=== PATIENT | male | born 1940 | race Caucasian/White ===

== ENCOUNTER 2024-10-05 19:44 | Inpatient (IN) | payer OTHER, SELFPAY ==
[2024-10-05] VITALS (7 sets, daily range): BP systolic 105–118; BP diastolic 55–61; PULSE 93–97; RESP 16; TEMP 36.8–37.1; O2SAT 78–97; BMI 29.3
--- NOTE | ~2024-10-05 | XR_ITS ---
CLINICAL HISTORY: trauma 3 views lumbar spine Comparison: None Findings: Normal alignment. Age indeterminate mild superior endplate compression of L1. No retropulsion. Multilevel degenerative changes. Aortic atherosclerosis. Left hip arthroplasty. IMPRESSION: Age indeterminate L1 superior endplate compression fracture without retropulsion. This document has been electronically signed by: Tutu Hearn MD on 10/05/2024 22:09:00
--- NOTE | ~2024-10-05 | CT_ITS ---
CLINICAL HISTORY: fall CT head without contrast Comparison: None Findings: No intra-axial mass, midline shift, hydrocephalus, or acute hemorrhage. Periventricular and subcortical white matter hypoattenuation likely chronic small-vessel ischemic changes. Intracranial atherosclerosis. Opacified right maxillary sinus. No acute findings in the orbits. No skull fracture. IMPRESSION: 1. No acute intracranial findings. 2. Opacified right maxillary sinus. This document has been electronically signed by: Tutu Hearn MD on 10/05/2024 21:12:03
--- NOTE | ~2024-10-05 | XR_ITS ---
CLINICAL HISTORY: trauma 4 view left elbow Comparison: None Findings: Bones intact. No dislocations. Mild osteoarthritis of the elbow. No joint effusion. IMPRESSION: 1. No acute findings This document has been electronically signed by: Tutu Hearn MD on 10/05/2024 22:08:00
--- NOTE | ~2024-10-05 | CT_ITS ---
CLINICAL HISTORY: fall CT cervical spine without contrast Comparison: None Findings: Normal vertebral body alignment. Multilevel degenerative changes. No acute fractures or dislocations. Visualized intracranial contents are unremarkable. No cervical fluid collections or masses. Bilateral carotid atherosclerosis. Lung apices are clear. IMPRESSION: 1. No acute osseous injury. This document has been electronically signed by: Tutu Hearn MD on 10/05/2024 21:03:47
--- NOTE | ~2024-10-05 | XR_ITS ---
CLINICAL HISTORY: trauma 1 view chest x-ray Comparison: None Findings: The lungs are clear. No pleural effusion or pneumothorax. Heart size is normal. Aortic atherosclerosis. Left subclavian pacemaker with electrodes in the right atrium and right ventricle. No acute fracture. IMPRESSION: 1. No acute findings. This document has been electronically signed by: Tutu Hearn MD on 10/05/2024 22:02:55
--- NOTE | ~2024-10-05 | XR_ITS ---
CLINICAL HISTORY: ?pulm edema 1 view chest x-ray Comparison: CR - XR CHEST 1V - 10/05/24 21:30 EDT Findings: Small left pleural effusion. Few patchy opacities in the right base may be atypical edema or infection. Left subclavian pacemaker with electrodes in the right atrium and right ventricle. No acute fracture. IMPRESSION: 1. Small left pleural effusion. 2. Right basilar opacities, may represent atypical edema or infection. This document has been electronically signed by: Tutu Hearn MD on 10/06/2024 20:54:11
--- NOTE | ~2024-10-05 | XR_ITS ---
CLINICAL HISTORY: trauma 3 views thoracic spine Comparison: None Findings: Normal vertebral body alignment. Age indeterminate mild superior endplate compression of L1. No retropulsion. Diffuse idiopathic skeletal hyperostosis of the thoracic spine. IMPRESSION: Age indeterminate mild superior endplate compression of L1. No retropulsion. This document has been electronically signed by: Tutu Hearn MD on 10/05/2024 22:09:41
--- NOTE | 2024-10-05 20:24 | ECG_ITS ---
Test Reason : FALL Blood Pressure : */* mmHG Vent. 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
--- OUTSIDE RECORDS SUMMARY | 2024-10-05 20:47 | XMS_ITS | Encounter Summary ---
Author Organization [facility] Address [address] [place] [address] Care Team Providers Care Mint Machine Operator Name Role Phone George Rivera MD Unavailable Roge Britt MD Unavailable [phone] Trudy Quevedo MD Unavailable Trudy Quevedo MD Primary Care Provider Fatmata Fernandes HEAD NECK SURGEON Unavailable [phone] Trudy Quevedo MD Unavailable Sepideh May RN Unavailable Ella Nobles PA-C Unavailable Ella Nobles PA-C Unavailable Encounter Details Date Type Department Care Team (Late st Contact Info) Description 10/29/2021 Scanned Document [facility] ORTHO SURGERY SCAN Orthopedic Surgery, Scan Social History Tobacco Use Types Packs/Day Years Used Date Smoking Tobacco: Former Cigarettes 1 30 0 06/1990 - 06/2020 Cigars Smokeless Tobacco: Never Comments:last cigar 5-6 week s ago, last cigarettes 30 yrs ago Alcohol Use Standard Drinks/Week Comments Yes 0 (1 standard drink = 0.6 oz pur e alcohol) Very rarely PHQ-2 Answer Date Recorded PHQ-2 Total Score 0 08/19/2021 Sex and Gender Information Value Date Recorded Sex Assigned at Male 09/01/2022 3:38 PM EDT Legal Sex Male 1:21 PM EDT Gender Identity Male 07/20/2021 2:13 PM EST Sexual Orientation Heterosexual (straight) 12/06 8:41 AM EDT COVID-19 Exposure Response Date Recorded In the last 10 days, have yo u been in contact with someone who was confirmed or suspected to have Coronavirus/COVID-19? No / Unsure 10/27/2021 9:53 AM EDT documented as of this encounter Plan of Treatment Upcoming Encounters Date Type Department Care Team ([facility] st Contact Info) Description 02/24/2025 11:45 AM EDT Office Visit [address] [address] Trudy Quevedo MD [address] [place] [address] documented as of this encounter Visit Diagnoses Not on filedocumented in this encounter Additional Health Concerns Infection Onset Date Last Indicated Resolved Time R/O COVID-19 (PUI) Comment:Bulk resolution for outdated COVID infections - Infection Prevention 11/30/2021 12/16/2021 03/23/2023 1:53 PM E DT documented as of this encounter Care Teams Mint Machine Operator Relationship Specialty Start Date End Date George Rivera MD 85 [facility] [address] [phone] PCP - Cardiology Cardiovascular Disease 08/10/20 Trudy Quevedo MD [address] [address] PCP - General Internal Medicine 11/11/20 Trudy Quevedo MD [address] [place], [place] [id number] PCP - Aetna Medicare Attributed 06/19/21 Roge Britt MD [address] [place] [address] Surgery, Orthopedic 08/18/20 Trudy Quevedo MD [address] [place] [address] Internal Medicine 08/18/20 Fatmata Fernandes APRN [address] [place] [address] ICP Community Nutrition Manager 05/03/21 03/13/23 Sepideh May, JAZMYNE [address] [address] ICP Community Nutrition Manager 03/22/23 Ella Nobles PA-C [address] [place] [address] Cardiovascular Disease 06/19/23 12/19/23 Ella Nobles PA-C [address] [place] [address] Physician Value Analyst Cardiovascular Disease 06/19/23 documented as of this encounter
--- OUTSIDE RECORDS SUMMARY | 2024-10-05 20:47 | XMS_ITS | Encounter Summary ---
Author Organization [facility] Address [address] [place] [address] Care Team Providers Care Genomics Scientist Name Role Phone George Rivera MD Unavailable Roge Britt MD Unavailable [phone] Trudy Quevedo MD Unavailable [phone] Trudy Quevedo MD Primary Care Provider Fatmata Fernandes MAILING CLERK Unavailable [phone] Trudy Quevedo MD Unavailable Sepideh May RN Unavailable Ella Nobles PA-C Unavailable Ella Nobles PA-C Unavailable [phone] Encounter Details Date Type Department Care Team (Late st Contact Info) Description 11/30/[address] [facility] Heart & Vascular [place] - Electrophysiology [address] [place] [phone] Dylan Warner MD [address] [place] [address] Social History Tobacco Use Types Packs/Day Years [...] suspected to have Coronavirus/COVID-19? No / Unsure 11/24/2021 9:53 AM EDT documented as of this encounter Plan of Treatment Upcoming Encounters Date Type Department Care Team (Late st Contact Info) Description 02/24/2025 11:45 AM EDT Office Visit [address] [address] Trudy Quevedo MD [address] [place] [address] documented as of this encounter Visit Diagnoses Not on filedocumented in this encounter Additional Health Concerns Infection Onset Date Last Indicated Resolved Time R/O COVID-19 (PUI) Comment:Bulk resolution for outdated COVID infections - Infection Prevention 11/30/2021 12/16/2021 03/23/2023 1:53 PM E DT documented as of this encounter Care Teams Genomics Scientist Relationship Specialty Start Date End Date George Rivera MD 85 [facility] [address] [phone] PCP - Cardiology Cardiovascular Disease 08/10/20 Trudy Quevedo MD [address] [address] PCP - General Internal Medicine 11/11/20 Trudy Quevedo MD [address] [place] [address] PCP - Aetna Medicare Attributed 06/19/21 Roge Britt MD [address] [place] [address] Surgery, Orthopedic 08/18/20 Trudy Quevedo MD [address] [place] [address] Internal Medicine 08/18/20 Fatmata Fernandes APRN [address] [place] [address] ICP Community Pattern Checker 05/03/21 03/13/23 Sepideh May RN [address] [address] ICP Community Pattern Checker 03/22/23 Ella Nobles PA-C [address] [place] [address] Cardiovascular Disease 06/19/23 12/19/23 Ella Nobles PA-C [address] [place] [address] Physician Coremaker Pipe Cardiovascular Disease 06/19/23 documented as of this encounter
--- OUTSIDE RECORDS SUMMARY | 2024-10-05 20:48 | XMS_ITS | Encounter Summary ---
Author Organization [facility] Address [address] [place] [address] Care Team Providers Care Leather Lacer Name Role Phone George Rivera MD Unavailable [phone] Roge Britt MD Unavailable [phone] Trudy Quevedo MD Unavailable [phone] Trudy Quevedo MD Primary Care Provider Swathi Navarro DO Unavailable [phone] Fatmata Fernandes CONVEYOR LINE BAKERY WORKER Unavailable [phone] Trudy Quevedo MD Unavailable Sepideh May RN Unavailable Ella Nobles PA-C Unavailable Ella Nobles PA-C Unavailable Encounter Details Date Type Department Care Team (Late st Contact Info) Description 01/14/2021 Scanned Document [facility] PRIMARY CARE SCAN Primary Care, Scan Social History Tobacco Use Types Packs/Day Years Used Date Smoking Tobacco: Former Cigarettes 1 30 0 06/1990 - 06/2020 Cigars Smokeless Tobacco: Current Comments:last cigar 5-6 week s ago, last cigarettes 30 yrs ago Alcohol Use Standard Drinks/Week Comments Yes 0 (1 standard drink = 0.6 oz pur e alcohol) Very rarely Sex and Gender Information Value Date Recorded Sex Assigned at Male 09/01/2022 3:38 PM EDT Legal Sex Male 1:21 PM EDT Gender Identity Male 07/20/2021 2:13 PM EST Sexual Orientation Heterosexual (straight) 12/06 8:41 AM EDT COVID-19 Exposure Response Date Recorded In the last month, have you been in contact with someone who was confirmed or suspected to have Coronavirus / COVID-19? No / Unsure 01/13/2021 12:51 PM EDT documented as of this encounter Plan of Treatment Upcoming Encounters Date Type Department Care Team (Late st Contact Info) Description 02/24/2025 11:45 AM EDT Office Visit [address] [address] Trudy Quevedo MD [address] [place] [address] documented as of this encounter Visit Diagnoses Not on filedocumented in this encounter Additional Health Concerns Infection Onset Date Last Indicated Resolved Time R/O COVID-19 (PUI) Comment:Bulk resolution for outdated COVID infections - Infection Prevention 11/30/2021 12/16/2021 03/23/2023 1:53 PM E DT documented as of this encounter Care Teams Leather Lacer Relationship Specialty Start Date End Date George Rivera MD 85 [facility] 719 [place] [address] PCP - Cardiology Cardiovascular Disease 08/10/20 Trudy Quevedo MD [address] [address] PCP - General Internal Medicine 11/11/20 Swathi Navarro DO [address] [place] [address] PCP - Aetna Medicare Attributed 10/17/20 02/16/21 Trudy Quevedo MD [address] [place] [address] PCP - Aetna Medicare Attributed 06/19/21 Roge Britt MD [address] [place] [address] Surgery, Orthopedic 08/18/20 Trudy Quevedo MD [address] [place] [address] Internal Medicine 08/18/20 Fatmata Fernandes APRN [address] [place] [address] ICP Community Keno Dealer 05/03/21 03/13/23 Sepideh May RN [address] [place] [address] [address] ICP Community Keno Dealer 03/22/23 Ella Nobles PA-C [address] [place] [address] Cardiovascular Disease 06/19/23 12/19/23 Ella Nobles PA-C [address] [place] [address] Physician Package Line Relief Operator Cardiovascular Disease 06/19/23 documented as of this encounter
--- OUTSIDE RECORDS SUMMARY | 2024-10-05 20:48 | XMS_ITS | Encounter Summary ---
Author Organization [facility] Address [address] [place] [address] Care Team Providers Care Biomedical Service Engineer Name Role Phone George Rivera MD Unavailable [phone] Roge rBitt MD Unavailable [phone] Trudy Quevedo MD Unavailable Trudy Quevedo MD Primary Care Provider Fatmata Fernandes MAIL TELLER Unavailable [phone] Trudy Quevedo MD Unavailable [phone] Sepideh May RN Unavailable Ella Nobles PA-C Unavailable Ella Nobles PA-C Unavailable [phone] Encounter Details Date Type Department Care Team (Late st Contact Info) Description 12/21/2021 Telephone [facility] Heart & Vascular [place] - Electrophysiology [address] [place] [phone] Dylan Warner MD 85 [place] [address] Social History Tobacco Use Types Packs/Day Years [...] suspected to have Coronavirus/COVID-19? No / Unsure 12/23/2021 4:33 PM EDT documented as of this encounter Miscellaneous Notes * Telephone Encounter - Dimas Kent RN - 12/21/2021 3:21 PM EDT Elsa called him, she will call him back now. documented in this encounter Plan of Treatment Upcoming Encounters Date Type Department Care Team (Late st Contact Info) Description 02/24/2025 11:45 AM EDT Office Visit [address] [place] [address] Trudy Quevedo MD 100 [facility] [address] [place] [address] documented as of this encounter Visit Diagnoses Not on filedocumented in this encounter Additional Health Concerns Infection Onset Date Last Indicated Resolved Time R/O COVID-19 (PUI) Comment:Bulk resolution for outdated COVID infections - Infection Prevention 11/30/2021 12/16/2021 03/23/2023 1:53 PM E DT documented as of this encounter Care Teams Biomedical Service Engineer Relationship Specialty Start Date End Date George Rivera MD [address] [place] [address] 7[address] [place] [address] PCP - Cardiology Cardiovascular Disease 08/10/20 Trudy Quevedo MD [address] [place] [address] PCP - General Internal Medicine 11/11/20 Trudy Quevedo MD [address] [address] PCP - Aetna Medicare Attributed 06/19/21 Roge Britt MD [address] [place] [address] Surgery, Orthopedic 08/18/20 Trudy Quevedo MD [address] [place] [address] Internal Medicine 08/18/20 Fatmata Fernandes, MAIL TELLER [address] [place] [address] ICP Community Hay Rake Operator 05/03/21 03/13/23 Sepideh May, RN [address] [address] ICP Community Hay Rake Operator 03/22/23 Ella Nobles PA-C [address] [place] [address] Cardiovascular Disease 06/19/23 12/19/23 Ella Nobles PA-C 1 [place] [address] Physician Fortune Teller Cardiovascular Disease 06/19/23 documented as of this encounter
--- OUTSIDE RECORDS SUMMARY | 2024-10-05 20:48 | XMS_ITS | Encounter Summary ---
Author Organization [facility] Address [address] [place] [address] Care Team Providers Care Payable Processor Name Role Phone George Rivera MD Unavailable Roge Britt MD Unavailable [phone] Trudy Quevedo MD Unavailable [phone] Trudy Quevedo MD Primary Care Provider [phone] Swathi Navarro DO Unavailable [phone] Fatmata Fernandes ACTING TEACHER Unavailable [phone] Trudy Quevedo MD Unavailable Sepideh May RN Unavailable Ella Nobles PA-C Unavailable Ella Nobles PA-C Unavailable Encounter Details Date Type Department Care Team (Late st Contact Info) Description 01/13/2021 Scanned Document [facility] PRIMARY CARE SCAN Primary Care, Scan [...] Description 02/24/2025 11:45 AM EDT Office Visit [address] [address] Trudy Quevedo MD [address] [place] [address] documented as of this encounter Visit Diagnoses Not on filedocumented in this encounter Additional Health Concerns Infection Onset Date Last Indicated Resolved Time R/O COVID-19 (PUI) Comment:Bulk resolution for outdated COVID infections - Infection Prevention 11/30/2021 12/16/2021 03/23/2023 1:53 PM E DT documented as of this encounter Care Teams Payable Processor Relationship Specialty Start Date End Date George Rivera MD 85 [facility] 719 [place] [address] PCP - Cardiology Cardiovascular Disease 08/10/20 Trudy Quevedo MD [address] [address] PCP - General Internal Medicine 11/11/20 Swathi Navarro DO [address] [place] [address] PCP - Aetna Medicare Attributed 10/17/20 02/16/21 Trudy Quevedo MD [address] [place] [address] PCP - Aetna Medicare Attributed 06/19/21 Roge Britt MD [address] [place] [address] Surgery, Orthopedic 08/18/20 Trudy Quevedo MD [address] [place] [address] Internal Medicine 08/18/20 Fatmata Fernandes APRN [address] [place] [address] ICP Community Assistant Production Editor 05/03/21 03/13/23 Sepideh May RN [address] [address] ICP Community Assistant Production Editor 03/22/23 Ella Nobles PA-C [address] [place] [address] Cardiovascular Disease 06/19/23 12/19/23 Ella Nobles PA-C [address] [place] [address] Physician Fiscal Clerk Cardiovascular Disease 06/19/23 documented as of this encounter
--- OUTSIDE RECORDS SUMMARY | 2024-10-05 20:48 | XMS_ITS | Encounter Summary ---
Author Organization [facility] Address [address] [place] [address] Care Team Providers Care Cutting Department Supervisor Name Role Phone George Rivera MD Unavailable [phone] Roge Britt MD Unavailable [phone] Trudy Quevedo MD Unavailable [phone] Trudy Quevedo MD Primary Care Provider [phone] Trudy Quevedo MD Unavailable [phone] Sepideh May RN Unavailable Ella Nobles PA-C Unavailable Ella Nobles PA-C Unavailable Encounter Details Date Type Department Care Team (Late st Contact Info) Description 09/12/2023 Scanned Document [facility] PRIMARY CARE SCAN Primary Care, Scan Social History Tobacco Use Types Packs/Day Years Used Date Smoking Tobacco: Former Cigarettes 1 50 0 06/1970 - 06/2020 Cigars Smokeless Tobacco: Never Comments:last cigar 5-6 week s ago, last cigarettes 30 yrs ago Alcohol Use Standard Drinks/Week Comments Not Currently 0 (1 standard drink = 0.6 oz pur e alcohol) occ. AUDIT-C Answer Date Recorded Q1: How often do you have a drink containing alcohol? Never 09/07/2023 Q2: How many drinks containi ng alcohol do you have on a typical day when you are drinking? Patient does not drink Q3: How often do you have si x or more drinks on one occasion? Never 09/07/2023 PHQ-2 Answer Date Recorded PHQ-2 Total Score 0 09/07/2023 Sex and Gender Information Value Date Recorded Sex Assigned at Male 09/01/2022 3:38 PM EDT Legal Sex Male 1:21 PM EDT Gender Identity Male 07/20/2021 2:13 PM EST Sexual Orientation Heterosexual (straight) 12/06 8:41 AM EDT documented as of this encounter Plan of Treatment Upcoming Encounters Date Type Department Care Team (Late st Contact Info) Description 02/24/2025 11:45 AM EDT Office Visit [address] [address] Trudy Quevedo MD [address] [place] [address] documented as of this encounter Visit Diagnoses Not on filedocumented in this encounter Care Teams Cutting Department Supervisor Relationship Specialty Start Date End Date George Rivera MD [address] [place], [place] [phone] PCP - Cardiology Cardiovascular Disease 08/10/20 Trudy Quevedo MD [address] [place], [place] [phone] PCP - General Internal Medicine 11/11/20 Trudy Quevedo MD [address] [place] [address] PCP - Aetna Medicare Attributed 06/19/21 Roge Britt MD [address] [place] [address] Surgery, Orthopedic 08/18/20 Trudy Quevedo MD [address] [place] [address] Internal Medicine 08/18/20 Sepideh May, RN 1290 [facility] [address] [address] [facility] Community Therapist Speech 03/22/23 Ella Nobles PA-C [address] [place] [address] Cardiovascular Disease 06/19/23 12/19/23 Ella Nobles PA-C [address] [place] [address] Physician Cup Trimming Machine Operator Cardiovascular Disease 06/19/23 documented as of this encounter
--- OUTSIDE RECORDS SUMMARY | 2024-10-05 20:48 | XMS_ITS | Encounter Summary ---
Author Organization [facility] Address [address] [place] [address] Care Team Providers Care College Tutor Name Role Phone Bridgett Tavares Young ELEVATOR SERVICE MECHANIC Primary Care Provi yana George Rivera MD Unavailable Roge Britt MD Unavailable [phone] Trudy Quevedo MD Unavailable [phone] Trudy Quevedo MD Primary Care Provider Swathi Navarro DO Unavailable [phone] Fatmata Fernandes APRN Unavailable [phone] Trudy Quevedo MD Unavailable Sepideh May RN Unavailable Ella Nobles PA-C Unavailable Ella Nobles PA-C Unavailable Reason for Visit * Reason Comments Medication Refill Encounter Details Date Type Department Care Team (Late st Contact Info) Description 09/18/2020 Refill [facility] Heart & Vascular [place] - Electrophysiology [address] [place] [address] [address] [place] [address] Sonya Leal APRN [address] [place] [address] Medication Refill Social History Tobacco Use Types Packs/Day Years [...] have Coronavirus / COVID-19? No / Unsure 09/18/2020 10:55 AM EDT documented as of this encounter Plan of Treatment Upcoming Encounters Date Type Department Care Team (Late st Contact Info) Description 02/24/2025 11:45 AM EDT Office Visit [address] [phone] Trudy Quevedo MD 100 [facility] 101 [place] [address] documented as of this encounter Visit Diagnoses Diagnosis Paroxysmal atrial fibrillation (HCC) Atrial fibrillation documented in this encounter Additional Health Concerns Infection Onset Date Last Indicated Resolved Time R/O COVID-19 (PUI) Comment:Bulk resolution for outdated COVID infections - Infection Prevention 11/30/2021 12/16/2021 03/23/2023 1:53 PM E DT documented as of this encounter Care Teams College Tutor Relationship Specialty Start Date End Date Tavares Urias, ELEVATOR SERVICE MECHANIC [address] [place] [address] PCP - General 12/21/18 11/10/20 George Rivera MD 85 [facility] 719 [place] [address] PCP - Cardiology Cardiovascular Disease 08/10/20 Trudy Quevedo MD [address] [place] [address] PCP - General Internal Medicine 11/11/20 Swathi Navarro DO [address] [place] [address] PCP - Aetna Medicare Attributed 10/17/20 02/16/21 Trudy Quevedo MD [address] [place] [address] PCP - Aetna Medicare Attributed 06/19/21 Roge Britt MD [address] [place] [address] Surgery, Orthopedic 08/18/20 Trudy Quevedo MD [address] [place] [address] Internal Medicine 08/18/20 Fatmata Fernandes APRN [address] [place] [address] [facility] Community Waiter/Waitress Second Class 05/03/21 03/13/23 Sepideh May, RN [address] [address] [facility] Community Waiter/Waitress Second Class 03/22/23 Ella Nobles PA-C [address] [place] [address] Cardiovascular Disease 06/19/23 12/19/23 Ella Nobles PA-C [address] [place] [address] Physician Capital Project Engineer Cardiovascular Disease 06/19/23 documented as of this encounter
--- OUTSIDE RECORDS SUMMARY | 2024-10-05 20:48 | XMS_ITS | Encounter Summary ---
Author Organization [facility] Address [address] [place] [address] Care Team Providers Care Adjunct Instructor Chemistry Name Role Phone George Rivera MD Unavailable [phone] Roge Britt MD Unavailable [phone] Trudy Quevedo MD Unavailable Trudy Quevedo MD Primary Care Provider Swathi Navarro DO Unavailable [phone] Fatmata Fernandes STATISTICAL MACHINE MECHANIC Unavailable [phone] Trudy Quevedo MD Unavailable Sepideh May RN Unavailable Ella Nobles PA-C Unavailable Ella Nobles PA-C Unavailable Encounter Details Date Type Department Care Team (Late st Contact Info) Description 01/13/2021 Scanned Document [facility] PRIMARY CARE SCAN Primary Care, Scan Social [...] Description 02/24/2025 11:45 AM EDT Office Visit [address] [address] Trudy Quevedo MD [address] [place] [address] documented as of this encounter Visit Diagnoses Not on filedocumented in this encounter Additional Health Concerns Infection Onset Date Last Indicated Resolved Time R/O COVID-19 (PUI) Comment:Bulk resolution for outdated COVID infections - Infection Prevention 11/30/2021 12/16/2021 03/23/2023 1:53 PM E DT documented as of this encounter Care Teams Adjunct Instructor Chemistry Relationship Specialty Start Date End Date George Rivera MD 85 [facility] 719 [place] [address] PCP - Cardiology Cardiovascular Disease 08/10/20 Trudy Quevedo MD [address] [address] PCP - General Internal Medicine 11/11/20 Swathi Navarro DO [address] [place] [address] PCP - Aetna Medicare Attributed 10/17/20 02/16/21 Trudy Quevedo MD [address] [place] [address] PCP - Aetna Medicare Attributed 06/19/21 Roge Britt MD [address] [place] [address] Surgery, Orthopedic 08/18/20 Trudy Quevedo MD [address] [place] [address] Internal Medicine 08/18/20 Fatmata Fernandes APRN [address] [place] [address] ICP Community Automobile Inspector 05/03/21 03/13/23 Sepideh May RN [address] [address] ICP Community Automobile Inspector 03/22/23 Ella Nobles PA-C [address] [place] [address] Cardiovascular Disease 06/19/23 12/19/23 Ella Nobles PA-C [address] [place] [address] Physician Cork Grinder Cardiovascular Disease 06/19/23 documented as of this encounter
--- OUTSIDE RECORDS SUMMARY | 2024-10-05 20:48 | XMS_ITS | Encounter Summary ---
Author Organization [facility] Address [address] [place] [address] Care Team Providers Care Director Translational Name Role Phone Bridgett Tavares Young FLIGHT TEST DATA ACQUISITION TECHNICIAN Primary Care Provi yana George Rivera MD Unavailable Roge Britt MD Unavailable [phone] Trudy Quevedo MD Unavailable [phone] Trudy Quevedo MD Primary Care Provider Swathi Navarro DO Unavailable [phone] Fatmata Fernandes APRN Unavailable [phone] Trudy Quevedo MD Unavailable [phone] Sepideh May RN Unavailable Ella Nobles PA-C Unavailable Ella Nobles PA-C Unavailable Reason for Visit * Reason Comments Medication Refill Encounter Details Date Type Department Care Team (Late st Contact Info) Description 09/09/2020 Refill [facility] Heart & Vascular [place] - Electrophysiology [address] [place] [address] [address] [place] [address] Sonya Leal APRN [address] [place] [address] Medication Refill Social History Tobacco Use Types [...] have Coronavirus / COVID-19? No / Unsure 09/08/2020 8:36 AM EDT documented as of this encounter Plan of Treatment Upcoming Encounters Date Type Department Care Team (Late st Contact Info) Description 02/24/2025 11:45 AM EDT Office Visit [address] [phone] Trudy Quevedo MD 100 [facility] 101 [place] [address] documented as of this encounter Visit Diagnoses Not on filedocumented in this encounter Additional Health Concerns Infection Onset Date Last Indicated Resolved Time R/O COVID-19 (PUI) Comment:Bulk resolution for outdated COVID infections - Infection Prevention 11/30/2021 12/16/2021 03/23/2023 1:53 PM E DT documented as of this encounter Care Teams Director Translational Relationship Specialty Start Date End Date Tavares Urias, FLIGHT TEST DATA ACQUISITION TECHNICIAN [address] [place] [address] PCP - General 12/21/18 11/10/20 George Rivera MD 85 [facility] [address] [place] [phone] PCP - Cardiology Cardiovascular Disease 08/10/20 Trudy Quevedo MD [address] [place] [address] PCP - General Internal Medicine 11/11/20 Swathi Navarro DO 74 [place] [address] PCP - Aetna Medicare Attributed 10/17/20 02/16/21 Trudy Quevedo MD [address] [place] [id number] PCP - Aetna Medicare Attributed 06/19/21 Roge Britt MD [address] [place] [address] Surgery, Orthopedic 08/18/20 Trudy Quevedo MD [address] [place] [address] [address] [place] [phone] Internal Medicine 08/18/20 Fatmata Fernandes, FLIGHT TEST DATA ACQUISITION TECHNICIAN [address] [place] [address] [facility] Community Payroll Benefits Administrator 05/03/21 03/13/23 Sepideh May, RN [address] [address] [facility] Community Payroll Benefits Administrator 03/22/23 Ella Nobles PA-C [address] [place] [address] Cardiovascular Disease 06/19/23 12/19/23 Ella Nobles PA-C [address] [place] [address] Physician Grants Specialist Cardiovascular Disease 06/19/23 documented as of this encounter
--- OUTSIDE RECORDS SUMMARY | 2024-10-05 20:48 | XMS_ITS | Encounter Summary ---
Author Organization [facility] Address [address] [place] [address] Care Team Providers Care Tdp Displays Analyst Name Role Phone Bridgett Krysta Family WING COVERER Primary Care Provi yana George Rivera MD Unavailable Roge Britt MD Unavailable [phone] Trudy Quevedo MD Unavailable Swathi Navarro DO Unavailable [phone] Trudy Quevedo MD Primary Care Provider Swathi Navarro DO Unavailable [phone] Fatmata Fernandes WING COVERER Unavailable [phone] Trudy Quevedo MD Unavailable [phone] Sepideh May RN Unavailable Ella Nobles PA-C Unavailable Ella Nobles PA-C Unavailable Encounter Details Date Type Department Care Team (Late st Contact Info) Description 04/22/2020 Telephone [facility] Heart & Vascular [place] - Electrophysiology [address] [place] [address] Dylan Warner MD 85 [place] [address] Social History Tobacco Use Types Packs/Day Years Used Date Smoking Tobacco: Some Days Cigars Smokeless Tobacco: Current Alcohol Use Standard Drinks/Week Comments Yes 0 [...] have Coronavirus / COVID-19? No / Unsure 04/22/2020 10:35 AM EST documented as of this encounter Plan of Treatment Upcoming Encounters Date Type Department Care Team (Late st Contact Info) Description 02/24/2025 11:45 AM EDT Office Visit [address] [phone] Trudy Quevedo MD [address] [address] documented as of this encounter Visit Diagnoses Not on filedocumented in this encounter Additional Health Concerns Infection Onset Date Last Indicated Resolved Time R/O COVID-19 (PUI) Comment:Bulk resolution for outdated COVID infections - Infection Prevention 11/30/2021 12/16/2021 03/23/2023 1:53 PM E DT documented as of this encounter Care Teams Tdp Displays Analyst Relationship Specialty Start Date End Date Bridgett, Krysta Young, ERICK [address] [place] [address] PCP - General 12/21/18 11/10/20 George Rivera MD [address] [place] [address] 719 [place] [address] PCP - Cardiology Cardiovascular Disease 08/10/20 Swathi Navarro DO [address] [place] [address] PCP - Aetna Medicare Attributed 06/19/20 07/19/20 Trudy Quevedo MD [address] [place], [place] [phone] PCP - General Internal Medicine 11/11/20 Swathi Navarro DO [address] [place] [address] PCP - Aetna Medicare Attributed 10/17/20 02/16/21 Trudy Quevedo MD [address] [place] [address] [address] PCP - Aetna Medicare Attributed 06/19/21 Roge Britt MD [address] [place] [address] Surgery, Orthopedic 08/18/20 Trudy Quevedo MD [address] [place] [address] Internal Medicine 08/18/20 Fatmata Fernandes APRN [address] [place] [address] [facility] Community Dbas 05/03/21 03/13/23 Sepideh May RN 1290 [address] [facility] [address] [place] [address] [facility] Community Dbas 03/22/23 Ella Nobles PA-C [address] [place] [address] Cardiovascular Disease 06/19/23 12/19/23 Ella Nobles PA-C [address] [place] [address] Physician Test Conductor Cardiovascular Disease 06/19/23 documented as of this encounter
--- OUTSIDE RECORDS SUMMARY | 2024-10-05 20:48 | XMS_ITS | Encounter Summary ---
Author Organization [facility] Address [address] [place] [address] Care Team Providers Care Purchaser Name Role Phone BridgettKrysta Family TELECOMMUNICATIONS NETWORK ENGINEER Primary Care Provi yana George Rivera MD Unavailable [phone] Roge Britt MD Unavailable [phone] Trudy Quevedo MD Unavailable Swathi Navarro DO Unavailable [phone] Trudy Quevedo MD Primary Care Provider Swathi Navarro DO Unavailable [phone] Fatmata Fernandes TELECOMMUNICATIONS NETWORK ENGINEER Unavailable [phone] Trudy Quevedo MD Unavailable Sepideh Mya RN Unavailable Ella Nobles PA-C Unavailable Ella Nobles PA-C Unavailable Encounter Details Date Type Department Care Team (Late st Contact Info) Description 05/22/2020 Scanned Document [facility] Heart & Vascular [place] - Electrophysiology [address] [place] [address] Social History Tobacco Use Types Packs/Day Years [...] have Coronavirus / COVID-19? No / Unsure 05/25/2020 6:20 AM EST documented as of this encounter Plan of Treatment Upcoming Encounters Date Type Department Care Team (Late st Contact Info) Description 02/24/2025 11:45 AM EDT Office Visit [facility] 100 [facility] 101 [place] [address] Trudy Quevedo MD [address] [place] [address] documented as of this encounter Visit Diagnoses Not on filedocumented in this encounter Additional Health Concerns Infection Onset Date Last Indicated Resolved Time R/O COVID-19 (PUI) Comment:Bulk resolution for outdated COVID infections - Infection Prevention 11/30/2021 12/16/2021 03/23/2023 1:53 PM E DT documented as of this encounter Care Teams Purchaser Relationship Specialty Start Date End Date Medicine, [place] Family, TELECOMMUNICATIONS NETWORK ENGINEER 8[address] [place] [address] PCP - General 12/21/18 11/10/20 George Rivera MD [address] [place] [address] [address] [place] [address] PCP - Cardiology Cardiovascular Disease 08/10/20 Swathi Navarro DO [address] [place] [address] PCP - Aetna Medicare Attributed 06/19/20 07/19/20 Trudy Quevedo MD [address] [place], [place] [phone] PCP - General Internal Medicine 11/11/20 Swathi Navarro DO [address] [place] [address] PCP - Aetna Medicare Attributed 10/17/20 02/16/21 Trudy Quevedo MD [address] [place] [phone] PCP - Aetna Medicare Attributed 06/19/21 Roge Britt MD [address] [place] [address] Surgery, Orthopedic 08/18/20 Trudy Quevedo MD [address] [place], [place] [phone] Internal Medicine 08/18/20 Fatmata Fernandes, TELECOMMUNICATIONS NETWORK ENGINEER [address] [place] [address] [facility] Community Photo Booth Operator 05/03/21 03/13/23 Sepideh May, RN [address] [phone] [facility] Community Photo Booth Operator 03/22/23 Ella Nobles PA-C [address] [place] [address] Cardiovascular Disease 06/19/23 12/19/23 Ella Nobles PA-C [address] [place] [address] Physician Veterinary Hospital Attendant Cardiovascular Disease 06/19/23 documented as of this encounter
--- OUTSIDE RECORDS SUMMARY | 2024-10-05 20:48 | XMS_ITS | Encounter Summary ---
Author Organization [facility] Address [address] [place] [address] Care Team Providers Care Gallery Or Museum Guide Name Role Phone George Rivera MD Unavailable Roge Britt MD Unavailable [phone] Trudy Quevedo MD Unavailable Trudy Quevedo MD Primary Care Provider [phone] Fatmata Fernandes STUDENT ASSISTANCE COUNSELOR Unavailable [phone] Trudy Quevedo MD Unavailable Sepideh May RN Unavailable Ella Nobles PA-C Unavailable Ella Nobles PA-C Unavailable Encounter Details Date Type Department Care Team (Late st Contact Info) Description 08/19/2021 Scanned Document [facility] PRIMARY CARE SCAN Primary Care, Scan [...] have Coronavirus / COVID-19? No / Unsure 08/19/2021 10:24 AM EST documented as of this encounter Plan of Treatment Upcoming Encounters Date Type Department Care Team (Late st Contact Info) Description 02/24/2025 11:45 AM EDT Office Visit [address] [address] Trudy Quevedo MD 100 [place] [phone] documented as of this encounter Visit Diagnoses Not on filedocumented in this encounter Additional Health Concerns Infection Onset Date Last Indicated Resolved Time R/O COVID-19 (PUI) Comment:Bulk resolution for outdated COVID infections - Infection Prevention 11/30/2021 12/16/2021 03/23/2023 1:53 PM E DT documented as of this encounter Care Teams Gallery Or Museum Guide Relationship Specialty Start Date End Date George Rivera MD 85 [facility] 719 [place] [address] PCP - Cardiology Cardiovascular Disease 08/10/20 Trudy Quevedo MD [address] [address] PCP - General Internal Medicine 11/11/20 Trudy Quevedo MD [address] [address] PCP - Aetna Medicare Attributed 06/19/21 Roge Britt MD [address] [place] [address] Surgery, Orthopedic 08/18/20 Trudy Quevedo MD [address] [place] [address] Internal Medicine 08/18/20 Fatmata Fernandes APRN [address] [place], [place] [phone] [facility] Community Diesel Mechanic Apprentice 05/03/21 03/13/23 Sepideh May RN [address] [address] ICP Community Diesel Mechanic Apprentice 03/22/23 Ella Nobles PA-C [address] [place] [address] Cardiovascular Disease 06/19/23 12/19/23 Ella Nobles PA-C [address] [place] [address] Physician Radioisotope Technician Cardiovascular Disease 06/19/23 documented as of this encounter
--- OUTSIDE RECORDS SUMMARY | 2024-10-05 20:48 | XMS_ITS | Encounter Summary ---
Author Organization [facility] Address [address] [place] [address] Care Team Providers Care Stagecraft Professor Name Role Phone George Rivera MD Unavailable Roge Britt MD Unavailable [phone] Trudy Quevedo MD Unavailable [phone] Trudy Quevedo MD Primary Care Provider Fatmata Fernandes CUSTODIAL AIDE Unavailable [phone] Trudy Quevedo MD Unavailable [phone] Sepideh May RN Unavailable Ella Nobles PA-C Unavailable Ella Nobles PA-C Unavailable Encounter Details Date Type Department Care Team (Late st Contact Info) Description 03/15/2021 Scanned Document [facility] ORTHO SURGERY SCAN Orthopedic Surgery, Scan [...] have Coronavirus / COVID-19? No / Unsure 02/16/2021 10:30 AM EDT documented as of this encounter Plan of Treatment Upcoming Encounters Date Type Department Care Team (Late st Contact Info) Description 02/24/2025 11:45 AM EDT Office Visit [address] [address] Trudy Quevedo MD [address] [address] documented as of this encounter Visit Diagnoses Not on filedocumented in this encounter Additional Health Concerns Infection Onset Date Last Indicated Resolved Time R/O COVID-19 (PUI) Comment:Bulk resolution for outdated COVID infections - Infection Prevention 11/30/2021 12/16/2021 03/23/2023 1:53 PM E DT documented as of this encounter Care Teams Stagecraft Professor Relationship Specialty Start Date End Date George Rivera MD 85 [facility] [address] [place] [phone] PCP - Cardiology Cardiovascular Disease 08/10/20 Trudy Quevedo MD 31 [facility] 100 [place] [address] PCP - General Internal Medicine 11/11/20 Trudy Quevedo MD [address] [address] PCP - Aetna Medicare Attributed 06/19/21 Roge Britt MD [address] [place], [place] [phone] Surgery, Orthopedic 08/18/20 Trudy Quevedo MD [address] [place] [address] Internal Medicine 08/18/20 Fatmata Fernandes APRN [address] [place] [address] ICP Community Computer Numeric Control Setter 05/03/21 03/13/23 Sepideh May, RN [address] [address] ICP Community Computer Numeric Control Setter 03/22/23 Ella Nobles PA-C [address] [place] [address] Cardiovascular Disease 06/19/23 12/19/23 Ella Nobles PA-C [address] [place] [address] Physician Electric Gas Appliances Demonstrator Cardiovascular Disease 06/19/23 documented as of this encounter
--- OUTSIDE RECORDS SUMMARY | 2024-10-05 20:48 | XMS_ITS | Encounter Summary ---
Author Organization [facility] Address 100 [place] [address] Care Team Providers Care Md Urologist Name Role Phone George Rivera MD Unavailable [phone] Roge Britt MD Unavailable [phone] Trudy Quevedo MD Unavailable Trudy Quevedo MD Primary Care Provider Swathi Navarro DO Unavailable Fatmata Fernandes KITCHEN STEWARDESS Unavailable [phone] Trudy Quevedo MD Unavailable Sepideh May RN Unavailable Ella Nobles PA-C Unavailable Ella Nobles PA-C Unavailable Encounter Details Date Type Department Care Team (Late st Contact Info) Description 01/13/2021 Scanned Document [facility] PRIMARY CARE SCAN Primary Care, Scan [...] Description 02/24/2025 11:45 AM EDT Office Visit [address] [address] Trudy Quevedo MD [address] [place] [address] documented as of this encounter Visit Diagnoses Not on filedocumented in this encounter Additional Health Concerns Infection Onset Date Last Indicated Resolved Time R/O COVID-19 (PUI) Comment:Bulk resolution for outdated COVID infections - Infection Prevention 11/30/2021 12/16/2021 03/23/2023 1:53 PM E DT documented as of this encounter Care Teams Md Urologist Relationship Specialty Start Date End Date George Rivera MD 85 [facility] 719 [place] [address] PCP - Cardiology Cardiovascular Disease 08/10/20 Trudy Quevedo MD [address] [address] PCP - General Internal Medicine 11/11/20 Swathi Navarro DO [address] [place] [address] PCP - Aetna Medicare Attributed 10/17/20 02/16/21 Trudy Quevedo MD [address] [place] [address] PCP - Aetna Medicare Attributed 06/19/21 Roge Britt MD [address] [place] [address] Surgery, Orthopedic 08/18/20 Trudy Quevedo MD [address] [place] [address] Internal Medicine 08/18/20 Fatmata Fernandes APRN [address] [place] [address] [facility] Community Lining Finisher 05/03/21 03/13/23 Sepideh May RN [address] [address] ICP Community Lining Finisher 03/22/23 Ella Nobles PA-C [address] [place] [address] Cardiovascular Disease 06/19/23 12/19/23 Ella Nobles PA-C [address] [place] [address] Physician Combination Welder Cardiovascular Disease 06/19/23 documented as of this encounter
--- OUTSIDE RECORDS SUMMARY | 2024-10-05 20:48 | XMS_ITS | Encounter Summary ---
Author Organization [facility] Address [address] [place] [address] Care Team Providers Care Surgical Technology Instructor Name Role Phone Bridgett Krysta Family PRO SHOP ATTENDANT Primary Care Provi yana George Rivera MD Unavailable Roge Britt MD Unavailable [phone] Trudy Quevedo MD Unavailable Swathi Navarro DO Unavailable [phone] Trudy Quevedo MD Primary Care Provider Swathi Navarro DO Unavailable [phone] Fatmata Fernandes PRO SHOP ATTENDANT Unavailable Trudy Quevedo MD Unavailable Sepideh May RN Unavailable Ella Nobles PA-C Unavailable [phone] Ella Nobles PA-C Unavailable [phone] Encounter Details Date Type Department Care Team (Late st Contact Info) Description 05/21/2020 Lab Requisition [facility] Through [address] [place] [address] Dylan Warner MD [address] [place] [address] Encounter for laboratory testing for COVID-19 virus Social History Tobacco Use Types Packs/Day Years [...] or suspected to have Coronavirus / COVID-19? Yes 05/21/2020 8:16 AM EST documented as of this encounter Plan of Treatment Upcoming Encounters Date Type Department Care Team (Late st Contact Info) Description 02/24/2025 11:45 AM EDT Office Visit [address] [address] Trudy Quevedo MD [address] [address] documented as of this encounter Procedures Procedure Name Priority Date/Time Associated Diagnosis Comments COVID-19 RT-PCR (JAMIE PAZ) Routine 05/21/2020 8:45 AM EST Encounter for laboratory testing for COVID-19 virus [ICD-10-CM] documented in this encounter Results * COVID-19 RT-PCR (Jamie Paz) (05/21/2020 8:45 AM EST) COVID-19 RT-PCR SARS-COV-2 NOT DETECTED Not Detected 05/23/2020 9:06 AM EST Molecular Templates Comment: ADDITIONAL INFORMATION [facility] COVID-19 RT-PCR Assay is Real-Time Reverse Application Support Manager Polymerase Chain Reaction (bird sitter-PCR) for the in vitro qualitative detection of three SARS-Cov-2 target sequences unique to the coronavirus disease 2019 (COVID-19). This is an Emergency Use Authorization (EUA) in vitro diagnostic (IVD) test that has been modified to include the [employer] automated liquid handler. Its analytical performance characteristics have been determined by the land surveying manager and verified by [facility] in a manner consistent with CLIA requirements. This test may be used for clinical purposes and should not be regarded as purely investigational or for research use only. This laboratory is certified under the Clinical Laboratory Improvement Amendments of 1988 (CLIA) as qualified to perform high complexity clinical testing. Reference interval for this testing is SARS-CoV-2 Not Detected. Fact sheets for this Emergency Use Authorization assay can be found at the following links: For Healthcare Providers: https://www.fda.gov/media/449670/download For Patients: https://www.BuzzTable.gov/media/979143/download TEST LIMITATIONS Positive results are indicative of the presence of SARS-CoV-2 RNA; clinical correlation with patient history and other diagnostic information is necessary to determine patient infection status. Positive results do not rule out bacterial infection or co-infection with other viruses. The agent detected may not be the definite cause of disease. Negative results do not exclude SARS-CoV-2 infection and should not be used as the sole basis for patient management decisions. Negative results must be combined with clinical observations, patient history, and epidemiological information. Improper sample collection, transport or storage may impede the ability of the assay to detect target sequences. Inconclusive specimens are not repeated, and recollection and submission of a new sample is recommended. The performance of the TaqPath COVID-19 Combo Kit was established using nasopharyngeal swab, nasopharyngeal aspirate, and bronchoalveolar lavage (BAL) specimens. The limit of detection for the assay was determined to be 0.75copies/uL in the specimens of nasopharyngeal swab. Other specimen types may be need for further validation before testing on this system. For further details refer to the [employer] TaqPath COVID-19 Combo Kit EUA submission (https://www.BuzzTable.gov/media/085490/download). ----- Test performed by [facility], [address] [place] [address] CLIA# [id number] ? Ronal Kam M.D., Ph.D., [facility], Clinical [employer] Hand Microbiology Nasopharyngeal swab / Unknown 05/21/2020 8:45 AM EST 05/21/2020 8:45 AM EST Narrative [facility] - 05/23/2020 9:06 AM EST Performed at [facility], [address] [place] [address], [place] Lic 0[place], CLIA [id number] Dylan Warner MD MICROBIOLOGY - GENERAL ORDERABLE S Final Result [facility] 10 [facility] [place] [address] documented in this encounter Visit Diagnoses Diagnosis Encounter for laboratory testing for COVID-19 virus documented in this encounter Additional Health Concerns Infection Onset Date Last Indicated Resolved Time R/O COVID-19 (PUI) Comment:Bulk resolution for outdated COVID infections - Infection Prevention 11/30/2021 12/16/2021 03/23/2023 1:53 PM E DT documented as of this encounter Care Teams Surgical Technology Instructor Relationship Specialty Start Date End Date Krysta Urias APRN [address] [place] [address] PCP - General 12/21/18 11/10/20 George Rivera MD [address] [place] [address] PCP - Cardiology Cardiovascular Disease 08/10/20 Swathi Navarro DO [address] [place] [address] PCP - Aetna Medicare Attributed 06/19/20 07/19/20 Trudy Quevedo MD [address] [place] [address] PCP - General Internal Medicine 11/11/20 Swathi Navarro DO [address] [place] [address] PCP - Aetna Medicare Attributed 10/17/20 02/16/21 Trudy Quevedo MD [facility] [address] [address] PCP - Aetna Medicare Attributed 06/19/21 Roge Britt MD [address] [place] [address] Surgery, Orthopedic 08/18/20 Trudy Quevedo MD [address] [place], [place] [address] Internal Medicine 08/18/20 Fatmata Fernandes, PRO SHOP ATTENDANT [address] [place] [address] [facility] Community Luncheonette Manager 05/03/21 03/13/23 Sepideh May, JAZMYNE [address] [address] ICP Community Luncheonette Manager 03/22/23 Ella Nobles, PA-C [facility] [place] [address] Cardiovascular Disease 06/19/23 12/19/23 Ella Nobles PA-C 7[address] [place] [address] Physician Resawyer Cardiovascular Disease 06/19/23 documented as of this encounter
--- OUTSIDE RECORDS SUMMARY | 2024-10-05 20:48 | XMS_ITS | Encounter Summary ---
Author Organization [facility] Address [address] [place] [address] Care Team Providers Care Ruby Software Developer Name Role Phone George Rivera MD Unavailable Roge Britt MD Unavailable Trudy Quevedo MD Unavailable Trudy Quevedo MD Primary Care Provider Trudy Quevedo MD Unavailable Sepideh May RN Unavailable Ella Nobles PA-C Unavailable [phone] Ella Nobles PA-C Unavailable Encounter Details Date Type Department Care Team (Late st Contact Info) Description 04/18/2023 Scanned Document [facility] PRIMARY CARE SCAN Primary Care, Scan [...] you have a drink containing alcohol? Never 11/28/2022 Q2: How many drinks containi ng alcohol do you have on a typical day when you are drinking? Patient does not drink Q3: How often do you have si x or more drinks on one occasion? Never 11/28/2022 PHQ-2 Answer Date Recorded PHQ-2 Total Score 0 09/02/2022 Sex and Gender Information Value Date Recorded Sex Assigned at Male 09/01/2022 3:38 PM EDT Legal Sex Male 1:21 PM EDT Gender Identity Male 07/20/2021 2:13 PM EST Sexual Orientation Heterosexual (straight) 12/06 8:41 AM EDT documented as of this encounter Plan of Treatment Upcoming Encounters Date Type Department Care Team (Late st Contact Info) Description 02/24/2025 11:45 AM EDT Office Visit [address] [address] Trudy Quevedo MD [address] [place] [address] documented as of this encounter Visit Diagnoses Not on filedocumented in this encounter Care Teams Ruby Software Developer Relationship Specialty Start Date End Date George Rivera MD [address] [place], [place] [phone] PCP - Cardiology Cardiovascular Disease 08/10/20 Trudy Quevedo MD [address] [place] [address] PCP - General Internal Medicine 11/11/20 Trudy Quevedo MD [address] [place] [address] PCP - A[employer]na Medicare Attributed 06/19/21 Roge Britt MD [address] [place] [address] Surgery, Orthopedic 08/18/20 Trudy Quevedo MD [address] [place] [address] Internal Medicine 08/18/20 Sepideh May, RN [address] [facility] [address] [address] [facility] Community Environmental Lead 03/22/23 Ella Nobles PA-C [address] [place] [address] Cardiovascular Disease 06/19/23 12/19/23 Ella Nobles PA-C [address] [place] [address] Physician In Store Banker Cardiovascular Disease 06/19/23 documented as of this encounter
--- OUTSIDE RECORDS SUMMARY | 2024-10-05 20:48 | XMS_ITS ---
Author Name [facility] Organization Unknown History of Medication Use Medication Directions Dispensed Refills Start Date End Date Stat us furosemide (LASIX) 20 MG tablet Take 1 tablet (20 mg total) by mouth every other day. Do NOT take this medication morning of surgery. 4 active Pradaxa 150 mg capsule TAKE 1 CAPSULE BY MOUTH TWICE A DAY 06/13/2023 active Jardiance 10 mg tablet Take 1 tablet every day by oral route. active furosemide 20 mg tablet Take 1 tablet every day by oral route. 4 completed acetaminophen 325 mg tablet 975 mg every 6 hours by oral route. 10/07/2020 1 completed melatonin 5 MG Cap capsule Take 1 capsule (5 mg total) by mouth nightly. 5- 10 mg @@ Bedtime active aspirin 81 mg tablet,delayed release Take 81 mg by oral route. 10/07/2020 1 completed cinacalcet (SENSIPAR) 30 MG tablet Take 1 tablet (30 mg total) by mouth nightly. Take this medication the evening before your surgery. 10/06/2022 active glucosamine sulfate 1,000 mg capsule 2000 mg by oral route. 1 completed acetaminophen (TYLENOL) 325 MG tablet Take 2 tablets (650 mg total) by mouth once as needed for mild pain. 12/27/2021 active cholecalciferol (CHOLECALCIFEROL) 25 MCG (1000 UT) tablet Take 1 tablet (1,000 Units total) by mouth daily. active Eliquis 5 mg tablet Take 1 tablet twice a day by oral route. 03/17/2020 0 completed methylPREDNISolone (MEDROL DOSEPAK) 4 MG tablet TAKE 6 TABLETS ON DAY 1 DIRECTED ON PACKAGE AND DECREASE BY 1 TAB EACH DAY FOR A TOTAL OF 6 DAYS 09/15/2023 4 active cephalexin (KEFLEX) 500 MG capsule Take 1 capsule (500 mg total) by mouth 3 (three) times a day. 02/13/2023 active torsemide (DEMADEX) 20 MG tablet Take 3 tablets (60 mg total) by mouth daily. 03/28/2024 active methocarbamol 750 mg tablet 750 mg every 6 hours by oral route. 10/07/2020 1 completed hydromorphone 2 mg tablet Take 0 mg every 4 hours by oral route. 10/07/2020 1 completed cinacalcet 30 mg tablet Take 1 tablet every day by oral route. active torsemide 60 mg tablet Take 1 tablet every day by oral route. active cholecalciferol (vitamin D3) 125 mcg (5,000 unit) tablet 1 {tbl} by oral route. 1 completed simvastatin 20 mg tablet Take 1 tablet every day by oral route. active Problems Problem Status Onset Date Problem Type Date of Resolution Source Prediabetes active 2021-01-13 [facility]Act [facility] SVT (supraventricular tachycardia) active 2021-11-30 ProblemAct [facility] Congestive heart failure (CHF) active 2022-11-17 ProblemAct [facility] Coronary artery disease involving [place] coronary artery of [place] heart active 2021-01-13 ProblemAct [facility] Typical atrial flutter active 2020-04-22 ProblemAct [facility] SSS (sick sinus syndrome) active 2021-11-30 ProblemAct [facility] Essential hypertension active 2021-01-13 ProblemAct [facility] Severe tricuspid regurgitation active 2024-03-04 ProblemAct [facility] Ascending aorta dilatation active ProblemAct [facility] Secondary hypercoagulable state active ProblemAct [facility] Acute on chronic diastolic (congestive) heart failure active 2023-08-08 ProblemAct [facility] Primary osteoarthritis of left hip active 2020-10-06 ProblemAct [facility] Stage 3b chronic kidney disease active 2022-02-22 ProblemAct [facility] RVF (right ventricular failure) active 2024-03-04 ProblemAct [facility] Coronary artery disease involving [place] coronary artery of [place] heart with other form of angina pectoris active 2021-12-10 ProblemAct [facility] Tricuspid valve regurgitation active 2022-11-09 Problem[address] [facility] Congestive heart failure active 2021-02-10 ProblemAct [facility] Paroxysmal atrial fibrillation active 2021-01-13 ProblemAct [facility] Chronic heart failure with preserved ejection fraction active 2024-03-04 ProblemAct [facility] Bradycardia active 2021-01-13 ProblemAct [facility] Anticoagulant therapy active 2021-10-05 ProblemAct [facility] Coronary atherosclerosis active 2019-02-28 ProblemAct [facility] History of coronary artery bypass grafting active 2021-01-18 ProblemAct [facility] Overweight active 2018-02-13 ProblemAct [facility] Hyperlipidemia active 2018-02-12 [facility] [facility] Cardiac pacemaker in situ active 2022-03-30 ProblemAct [facility] Atrial fibrillation active 2020-03-17 ProblemAct [facility] Hypertensive disorder active 2018-02-12 ProblemAct [facility] Dilatation of aorta active 2022-04-06 ProblemAct [facility] Secondary hyperaldosteronism active ProblemAct [facility] Immunizations Vaccine Date Source Lot Number Status Influenza High-Dose Quadriva lent,(FLUZONE HIGH-DOSE), Perservative Free IM 0.7 mL 65 years and older 03/26/2022 [facility] [id number] completed Tdap 01/13/2021 [facility] L [id number] completed Influenza, Unspecified 04/04/2015 [facility] co mpleted Influenza High-Dose Trivalen t,(FLUZONE HIGH-DOSE), Perservative Free IM 0.5 mL 65 years and older 03/05/2024 [facility] [id number] completed Covid-19 MRNA Vaccine - Pfiz er 12+ (Purple Cap) 08/14/2020 [facility] [id number] completed Influenza, Unspecified 04/10/2012 [facility] co mpleted Pneumococcal Conjugate 13-Valent 11/21/2016 [facility] [id number] completed Influenza, Unspecified 03/19/2016 [facility] co mpleted Covid-19 MRNA Vaccine - Pfiz er 12+ (Purple Cap) 07/24/2020 [facility] [id number] completed Covid-19 Vaccine, Unspecified 09/04/2020 [facility] completed Influenza, Quadrivalent (FLU AD) Adjuvanted Preservative Free IM 65 years and older 04/07/2023 [facility] [id number] completed Tdap 04/07/2011 [facility] completed Influenza, Quadrivalent 03/22/2021 [facility] [id number] ompleted Zoster Vaccine Live/Attenuated (Zostavax) 11/27/2015 [facility] completed Influenza, Unspecified 04/11/2014 [facility] co mpleted Influenza, Unspecified 04/13/2018 [facility] co mpleted Encounters Encounter Type Encounter Reason Primary Diagnosis Location Date [facility] 10/05/2024 Ambulatory Acute on chronic diastolic (congestive) heart failure Acute on chronic diastolic (congestive) heart failure [facility] 09/09/2024 Ambulatory Essential (primary) hypertension Essential (primary) hypertension [facility] 08/21/2024 Ambulatory Acute on chronic diastolic (congestive) heart failure Acute on chronic diastolic (congestive) heart failure [facility] 07/09/2024 [facility] 05/27/2024 [facility] 05/24/2024 [facility] 05/13/2024 [facility] 05/08/2024 [facility] 04/23/2024 Ambulatory Essential (primary) hypertension Essential (primary) hypertension [facility] 03/13/2024 Ambulatory Chronic diastolic (congestive) heart failure Chronic diastolic (congestive) heart failure [facility] 03/04/2024 [facility] 01/15/2024 [facility] 01/12/2024 Ambulatory Right heart failure, unspecified Right heart failure, unspecified [facility] 12/19/2023 Ambulatory Right heart failure, unspecified Right heart failure, unspecified [facility] 12/12/2023 [facility] 11/17/2023 Ambulatory Right heart failure, unspecified Right heart failure, unspecified [facility] 11/06/2023 [facility] 11/01/2023 [facility] 10/31/2023 [facility] 10/25/2023 Ambulatory Encounter for general adult medical examination without abnormal findings Encounter for general adult medical examination without abnormal findings [facility] 09/07/2023 Ambulatory Heart failure, unspecified Heart failure, unspecified [facility] 08/15/2023 Ambulatory Acute on chronic diastolic (congestive) heart failure Acute on chronic diastolic (congestive) heart failure [facility] 08/14/2023 Ambulatory Heart failure, unspecified Heart failure, unspecified [facility] 08/08/2023 [facility]ulatory [facility] 07/21/2023 Ambulatory Heart failure, unspecified Heart failure, unspecified [email or web address] 07/21/2023 Ambulatory Paroxysmal atrial fibrillation Paroxysmal atrial fibrillation [facility] 03/09/2023 Ambulatory Periorbital cellulitis Periorbital cellulitis [facility] 02/13/2023 Ambulatory [facility] 01/06/2023 Ambulatory Heart failure, unspecified [email or web address] 12/06/2022 Ambulatory Encounter for ge neral adult medical examination without abnormal findings [facility] 09/02/2022 Ambulatory COVID-19 [facility] 08/16/2022 Ambulatory Essential (prima ry) hypertension [facility] 02/22/2022 Ambulatory Presence of card iac pacemaker [email or web address] 12/30/2021 Ambulatory Typical atrial flutter [facility] 12/27/2021 Ambulatory Atherosclerotic heart disease of [place] coronary artery with other forms of angina pectoris [facility] 12/10/2021 Ambulatory Typical atrial flutter [facility] 11/24/2021 Ambulatory Supraventricular tachycardia [facility] 10/27/2021 Ambulatory Typical atrial flutter [facility] 10/20/2021 Ambulatory Encounter for ge neral adult medical examination without abnormal findings [facility] 08/19/2021 Care Team Organization Name Specialty Phone Email Start Date End [facility] 10/25/2023 [facility] 09/29/202310/17 SES [employer] 08/22/2023 11/19/2023 [facility] 04/20/20232 024 [facility] CCDA 01/27/2023 [facility] ADT 01/28/20 23 [facility] Trudy Quevedo [facility] 02/22/2022 [facility] 08/19/2021 12/30/2021
--- OUTSIDE RECORDS SUMMARY | 2024-10-05 20:48 | XMS_ITS | Encounter Summary ---
Author Organization [facility] Address [address] [place] [address] Care Team Providers Care Software Firmware Engineer Name Role Phone George Rivera MD Unavailable Roge Britt MD Unavailable Trudy Quevedo MD Unavailable Trudy Quevedo MD Primary Care Provider [phone] Trudy Quevedo MD Unavailable Sepideh May RN Unavailable Ella Nobles PA-C Unavailable Ella Nobles PA-C Unavailable Encounter Details Date Type Department Care Team (Late st Contact Info) Description 11/01/2023 Scanned Document [facility] Heart & Vascular [place] [facility] 85 [facility] [address] [place] [phone] Vinh Cervantes MD 85 [facility] [address] [place] [address] Social History Tobacco Use Types Packs/Day Years [...] Description 02/24/2025 11:45 AM EDT Office Visit [address] [address] Trudy Quevedo MD [address] [place] [address] documented as of this encounter Visit Diagnoses Not on filedocumented in this encounter Care Teams Software Firmware Engineer Relationship Specialty Start Date End Date George Rivera MD [address] [place] [id number] [place] [phone] PCP - Cardiology Cardiovascular Disease 08/10/20 Trudy Quevedo MD [address] [address] PCP - General Internal Medicine 11/11/20 Trudy Quevedo MD [address] [place] [address] PCP - A[employer] Medicare Attributed 06/19/21 Roge Britt MD [address] [place] [address] Surgery, Orthopedic 08/18/20 Trudy Quevedo MD [address] [place] [address] Internal Medicine 08/18/20 Sepideh May, RN [address] [address] [facility] Community Feeder Driver 03/22/23 Ella Nobles PA-C [address] [place] [address] Cardiovascular Disease 06/19/23 12/19/23 Ella Nobles PA-C [address] [place] [address] Physician Transportation Specialist Cardiovascular Disease 06/19/23 documented as of this encounter
--- OUTSIDE RECORDS SUMMARY | 2024-10-05 20:48 | XMS_ITS | Encounter Summary ---
Author Organization [facility] Address [address] [place] [address] Care Team Providers Care Fountain Dispenser Name Role Phone George Rivera MD Unavailable Roge Britt MD Unavailable [phone] Trudy Quevedo MD Unavailable Trudy Quevedo MD Primary Care Provider Fatmata Fernandes FAN MAIL EDITOR Unavailable [phone] Trudy Quevedo MD Unavailable Sepideh May RN Unavailable Ella Nobles PA-C Unavailable Ella Nobles PA-C Unavailable [phone] Encounter Details Date Type Department Care Team (Late st Contact Info) Description 10/06/2021 Telephone [facility] Heart & Vascular [place] - Electrophysiology [address] [place] [phone] Dylan Warner MD [address] [place] [address] Social History Tobacco Use Types Packs/Day Years [...] Upcoming Encounters Date Type Department Care Team ([facility] st Contact Info) Description 02/24/2025 11:45 AM EDT Office Visit [address] [address] Trudy Quevedo MD [address] [place] [address] documented as of this encounter Visit Diagnoses Not on filedocumented in this encounter Additional Health Concerns Infection Onset Date Last Indicated Resolved Time R/O COVID-19 (PUI) Comment:Bulk resolution for outdated COVID infections - Infection Prevention 11/30/2021 12/16/2021 03/23/2023 1:53 PM E DT documented as of this encounter Care Teams Fountain Dispenser Relationship Specialty Start Date End Date George Rivera MD [address] [place] [id number] [place] [address] PCP - Cardiology Cardiovascular Disease 08/10/20 Trudy Quevedo MD [address] [place] [address] PCP - General Internal Medicine 11/11/20 Trudy Quevedo MD [address] [place] [address] PCP - A[employer] Medicare Attributed 06/19/21 Roge Britt MD [address] [place] [address] Surgery, Orthopedic 08/18/20 Trudy Quevedo MD [address] [place] [address] Internal Medicine 08/18/20 Fatmata Fernandes, ERICK [address] [place] [address] [facility] Community Grocery Manager 05/03/21 03/13/23 Sepideh May, RN [address] [address] [facility] Community Grocery Manager 03/22/23 Ella Nobles PA-C [address] [place] [address] Cardiovascular Disease 06/19/23 12/19/23 Ella Nobles PA-C [address] [place] [address] Physician Sound Effects Manager Cardiovascular Disease 06/19/23 documented as of this encounter
--- OUTSIDE RECORDS SUMMARY | 2024-10-05 20:48 | XMS_ITS | Encounter Summary ---
Author Organization [facility] Address [address] [place] [address] Care Team Providers Care Irrigation Installation Specialist Name Role Phone Bridgett Tavares Young EXECUTIVE ADVISOR Primary Care Provi yana George Rivera MD Unavailable Roge Britt MD Unavailable [phone] Trudy Quevedo MD Unavailable Trudy Quevedo MD Primary Care Provider Swathi Navarro DO Unavailable [phone] Fatmata Fernandes APRN Unavailable [phone] Trudy Quevedo MD Unavailable Sepideh May RN Unavailable Ella Nobles PA-C Unavailable Ella Nboles PA-C Unavailable Reason for Visit * Reason Comments Medication Refill Encounter Details Date Type Department Care Team (Late st Contact Info) Description 09/11/2020 Refill [facility] Heart & Vascular [place] - Electrophysiology [address] [place] [address] [address] [place] [address] Sonya Leal APRN [address] [place] [address] Medication Refill Social History Tobacco Use Types [...] Description 02/24/2025 11:45 AM EDT Office Visit [address] [phone] Trudy Quevedo MD 100 [facility] [address] [place] [address] documented as of this encounter Visit Diagnoses Not on filedocumented in this encounter Additional Health Concerns Infection Onset Date Last Indicated Resolved Time R/O COVID-19 (PUI) Comment:Bulk resolution for outdated COVID infections - Infection Prevention 11/30/2021 12/16/2021 03/23/2023 1:53 PM E DT documented as of this encounter Care Teams Irrigation Installation Specialist Relationship Specialty Start Date End Date Tavares Urias, EXECUTIVE ADVISOR [address] [place] [address] PCP - General 12/21/18 11/10/20 George Rivera MD 85 [facility] [address] [place] [phone] PCP - Cardiology Cardiovascular Disease 08/10/20 Trudy Quevedo MD [address] [place] [address] PCP - General Internal Medicine 11/11/20 Swathi Navarro DO [address] [place] [address] PCP - A[employer] Medicare Attributed 10/17/20 02/16/21 Trudy Quevedo MD [address] [place] [phone] PCP - Aet[employer] Medicare Attributed 06/19/21 Roge Britt MD [address] [place] [address] Surgery, Orthopedic 08/18/20 Trudy Quevedo MD [address] [place] [address] [address] [place] [phone] Internal Medicine 08/18/20 Fatmata Fernandes, EXECUTIVE ADVISOR [address] [place] [address] [facility] Community Medical Logistics Specialist 05/03/21 03/13/23 Sepideh May, RN [address] [address] [facility] Community Medical Logistics Specialist 03/22/23 Ella Nobles PA-C [address] [place] [address] Cardiovascular Disease 06/19/23 12/19/23 Ella Nobles PA-C [address] [place] [address] Physician Hardware Assembler Cardiovascular Disease 06/19/23 documented as of this encounter
--- OUTSIDE RECORDS SUMMARY | 2024-10-05 20:48 | XMS_ITS | Encounter Summary ---
Author Organization [facility] Address [address] [place] [address] Care Team Providers Care Rice Cleaning Machine Tender Name Role Phone George Rivera MD Unavailable Roge Britt MD Unavailable [phone] Trudy Quevedo MD Unavailable Trudy Quevedo MD Primary Care Provider [phone] Swathi Navarro DO Unavailable [phone] Fatmata Fernandes COMPOUNDER Unavailable [phone] Trudy Quevedo MD Unavailable Sepideh May RN Unavailable Ella Nobles PA-C Unavailable Ella Nobles PA-C Unavailable Encounter Details Date Type Department Care Team (Late st Contact Info) Description 01/13/2021 Scanned Document [facility] PRIMARY CARE SCAN Primary Care, Scan [...] Description 02/24/2025 11:45 AM EDT Office Visit [address] [address] Trudy Quevedo MD [address] [place] [address] documented as of this encounter Visit Diagnoses Not on filedocumented in this encounter Additional Health Concerns Infection Onset Date Last Indicated Resolved Time R/O COVID-19 (PUI) Comment:Bulk resolution for outdated COVID infections - Infection Prevention 11/30/2021 12/16/2021 03/23/2023 1:53 PM E DT documented as of this encounter Care Teams Rice Cleaning Machine Tender Relationship Specialty Start Date End Date George Rivera MD 85 [facility] 719 [place] [address] PCP - Cardiology Cardiovascular Disease 08/10/20 Trudy Quevedo MD [address] [address] PCP - General Internal Medicine 11/11/20 Swathi Navarro DO [address] [place] [address] PCP - Aetna Medicare Attributed 10/17/20 02/16/21 Trudy Quevedo MD [address] [place] [address] PCP - A[employer] Medicare Attributed 06/19/21 Roge Britt MD [address] [place] [address] Surgery, Orthopedic 08/18/20 Trudy Quevedo MD [address] [place] [address] Internal Medicine 08/18/20 Fatmata Fernandes APRN [address] [place] [address] [facility] Community Video Player Mechanic 05/03/21 03/13/23 Sepideh May RN [address] [address] [facility] Community Video Player Mechanic 03/22/23 Ella Nobles PA-C [address] [place] [address] Cardiovascular Disease 06/19/23 12/19/23 Ella Nobles PA-C [address] [place] [address] Physician Supervisor Advertising Dispatch Clerks Cardiovascular Disease 06/19/23 documented as of this encounter
--- OUTSIDE RECORDS SUMMARY | 2024-10-05 20:48 | XMS_ITS | Encounter Summary ---
Author Organization [facility] Address [address] [place] [address] Care Team Providers Care Internal Affairs Commander Name Role Phone George Rivera MD Unavailable Roge Britt MD Unavailable [phone] Trudy Quevedo MD Unavailable Trudy Quevedo MD Primary Care Provider Trudy Quevedo MD Unavailable [phone] Sepideh May RN Unavailable Ella Nobles PA-C Unavailable [phone] Ella Nobles PA-C Unavailable Encounter Details Date Type Department Care Team (Late st Contact Info) Description 03/23/2023 [facility] 12[address] [place] [address] Trudy Quevedo MD [address] [place], [place] [phone] 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 Social History Tobacco Use Types Packs/Day Years [...] Description 02/24/2025 11:45 AM EDT Office Visit [facility] 100 [facility] 101 [place] [address] Trudy Quevedo MD 100 [facility] 101 [place] [address] documented as of this encounter Visit Diagnoses Diagnosis 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 100 [place] [address] PCP - General Internal Medicine 11/11/20 Trudy Quevedo MD [address] [place] [address] PCP - Aetna Medicare Attributed 06/19/21 Roge Britt MD 31 [facility] 100 [place] [address] Surgery, Orthopedic 08/18/20 Trudy Quevedo MD [address] [address] Internal Medicine 08/18/20 Sepideh May, RN [address] [facility] [address] [address] [facility] Community Assistant Track And Field Coach 03/22/23 Ella Nobles PA-C [address] [place] [address] Cardiovascular Disease 06/19/23 12/19/23 Ella Nobles PA-C [address] [place] [address] Physician Maintenance Carpenter Cardiovascular Disease 06/19/23 documented as of this encounter
--- OUTSIDE RECORDS SUMMARY | 2024-10-05 20:48 | XMS_ITS | Encounter Summary ---
Author Organization [facility] [place] [facility] Address [address] [place] [address] Care Team Providers Care Lay Out Maker Name Role Phone George Rivera MD Unavailable Roge Britt MD Unavailable [phone] Trudy Quevedo MD Unavailable Trudy Quevedo MD Primary Care Provider Trudy Quevedo MD Unavailable Sepideh May RN Unavailable Ella Nobles PA-C Unavailable Ella Nobles PA-C Unavailable Encounter Details Date Type Department Care Team (Late st Contact Info) Description 09/22/2023 Scanned Document [facility] PRIMARY CARE SCAN Primary Care, Scan Social [...] Description 02/24/2025 11:45 AM EDT Office Visit [address] [address] Trudy Quevedo MD 100 [place] [address] documented as of this encounter Visit Diagnoses Not on filedocumented in this encounter Care Teams Lay Out Maker Relationship Specialty Start Date End Date George Rivera MD [address] [place], [place] [phone] PCP - Cardiology Cardiovascular Disease 08/10/20 Trudy Quevedo MD [address] [place], [place] [phone] PCP - General Internal Medicine 11/11/20 Trudy Quevedo MD [address] [place] [address] PCP - Aetna Medicare Attributed 06/19/21 Roge Britt MD [address] [place] [address] Surgery, Orthopedic 08/18/20 Trudy Quevedo MD [address] [place] [address] Internal Medicine 08/18/20 Sepideh May, RN 1290 [facility] [address] [address] [facility] Community Thermostat Mechanic 03/22/23 Ella Nobles PA-C [address] [place] [address] Cardiovascular Disease 06/19/23 12/19/23 Ella Nobles PA-C [address] [place] [address] Physician Breaker Unit Assembler Cardiovascular Disease 06/19/23 documented as of this encounter
--- OUTSIDE RECORDS SUMMARY | 2024-10-05 20:48 | XMS_ITS | Encounter Summary ---
Author Organization [facility] Address [address] [place] [address] Care Team Providers Care Manager Corporate Name Role Phone George Rivera MD Unavailable Roge Britt MD Unavailable [phone] Trudy Quevedo MD Unavailable [phone] Trudy Quevedo MD Primary Care Provider [phone] Trudy Quevedo MD Unavailable Sepideh May RN Unavailable Ella Nobles PA-C Unavailable [phone] Encounter Details Date Type Department Care Team (Late st Contact Info) Description 05/15/2024 Scanned Document [facility] 80 [facility] [address] [place] [phone] Cardiology, Scan Social History Tobacco Use Types Packs/Day [...] 02/24/2025 11:45 AM EDT Office Visit [address] [address] Trudy Quevedo MD [address] [place] [address] documented as of this encounter Visit Diagnoses Not on filedocumented in this encounter Care Teams Manager Corporate Relationship Specialty Start Date End Date George Rivera MD [address] [place], [place] [address] [place] [address] PCP - Cardiology Cardiovascular Disease 08/10/20 Trudy Quevedo MD [address] [place] [address] PCP - General Internal Medicine 11/11/20 Trudy Quevedo MD [address] [place] [address] PCP - Aetna Medicare Attributed 06/19/21 Roge Britt MD [address] [place] [address] Surgery, Orthopedic 08/18/20 Trudy Quevedo MD [address] [place] [address] Internal Medicine 08/18/20 Sepideh May, JAZMYNE [address] [address] [facility] Community Shredded Filler Hopper Feeder 03/22/23 Ella Nobles, PAEllaC [address] [place] [address] Physician Media Assistant Cardiovascular Disease 06/19/23 documented as of this encounter
--- OUTSIDE RECORDS SUMMARY | 2024-10-05 20:48 | XMS_ITS | Encounter Summary ---
Author Organization [facility] Address 100 [place] [address] Care Team Providers Care Safety Tech Name Role Phone George Rivera MD Unavailable Roge Britt MD Unavailable [phone] Trudy Quevedo MD Unavailable [phone] Trudy Quevedo MD Primary Care Provider Trudy Quevedo MD Unavailable Sepideh May RN Unavailable Ella Nobles PA-C Unavailable [phone] Encounter Details Date Type Department Care Team (Late st Contact Info) Description 02/14/2024 Telephone [facility] [address] [place] [phone] Santiago Chiang Social History Tobacco Use Types Packs/Day Years [...] AM EDT documented as of this encounter Miscellaneous Notes * Telephone Encounter - Santiago Chiang - 02/14/2024 2:18 PM EDT LVM colon recall DH OCS documented in this encounter Plan of Treatment Upcoming Encounters Date Type Department Care Team (Late st Contact Info) Description 02/24/2025 11:45 AM EDT Office Visit [address] [address] Trudy Quevedo MD [address] [place] [address] documented as of this encounter Visit Diagnoses Not on filedocumented in this encounter Care Teams Safety Tech Relationship Specialty Start Date End Date George Rivera MD [address] [place] [phone] PCP - Cardiology Cardiovascular Disease 08/10/20 Trudy Quevedo MD [address] [place] [address] PCP - General Internal Medicine 11/11/20 Trudy Quevedo MD [address] [place] [address] PCP - Aetna Medicare Attributed 06/19/21 Roge Britt MD [address] [place] [address] Surgery, Orthopedic 08/18/20 Trudy Quevedo MD [address] [place] [address] Internal Medicine 08/18/20 Sepideh May, JAZMYNE [address] [address] [facility] Community Cement Railroad Car Loader 03/22/23 Ella Nobles, PAEllaC [address] [place] [address] Physician [facility] Cardiovascular Disease 06/19/23 documented as of this encounter
--- OUTSIDE RECORDS SUMMARY | 2024-10-05 20:48 | XMS_ITS | Encounter Summary ---
Author Organization [facility] Address 100 [place] [address] Care Team Providers Care Respiratory Assistant Name Role Phone BridgettKrysta Family BROMINATION EQUIPMENT OPERATOR Primary Care Provi yana George Rivera MD Unavailable Roge Britt MD Unavailable [phone] Trudy Quevedo MD Unavailable [phone] Trudy Quevedo MD Primary Care Provider Swathi Navarro DO Unavailable [phone] Fatmata Fernandes APRN Unavailable [phone] Trudy Quevedo MD Unavailable Sepideh May RN Unavailable Ella Nobles PA-C Unavailable Ella Nobles PA-C Unavailable Encounter Details Date Type Department Care Team (Late st Contact Info) Description 11/06/2020 Scanned Document [facility] ORTHO SURGERY SCAN [facility] [address] [facility] 100 [place] [address] Social History Tobacco Use Types Packs/Day Years [...] have Coronavirus / COVID-19? No / Unsure 11/02/2020 5:02 PM EDT documented as of this encounter Plan of Treatment Upcoming Encounters Date Type Department Care Team (Late st Contact Info) Description 02/24/2025 11:45 AM EDT Office Visit [address] [address] Trudy Quevedo MD [address] [place] [address] documented as of this encounter Visit Diagnoses Not on filedocumented in this encounter Additional Health Concerns Infection Onset Date Last Indicated Resolved Time R/O COVID-19 (PUI) Comment:Bulk resolution for outdated COVID infections - Infection Prevention 11/30/2021 12/16/2021 03/23/2023 1:53 PM E DT documented as of this encounter Care Teams Respiratory Assistant Relationship Specialty Start Date End Date Bridgett, Krysta Young, ERICK 851 [place] [address] PCP - General 12/21/18 11/10/20 George Rivera MD [address] [place] [address] [address] [place] [phone] PCP - Cardiology Cardiovascular Disease 08/10/20 Trudy Quevedo MD [address] [place] [address] PCP - General Internal Medicine 11/11/20 Swathi Navarro DO [address] [place], [place] [phone] PCP - Aetna Medicare Attributed 10/17/20 02/16/21 Trudy Quevedo MD [address] [place] [phone] PCP - Aetna Medicare Attributed 06/19/21 Roge Britt MD [address] [place] [address] Surgery, Orthopedic 08/18/20 Trudy Quevedo MD [address] [place], [place] [phone] Internal Medicine 08/18/20 Fatmata Fernandes APRN [address] [place] [address] [facility] Community Assembly Machine Offbearer 05/03/21 03/13/23 Sepideh May, JAZMYNE [address] [address] [facility] Community Assembly Machine Offbearer 03/22/23 Ella Nobles, PA-C [address] [place] [address] Cardiovascular Disease 06/19/23 12/19/23 Ella Nobles PA-C 1 [place] [address] Physician Data Security Analyst Cardiovascular Disease 06/19/23 documented as of this encounter
--- OUTSIDE RECORDS SUMMARY | 2024-10-05 20:48 | XMS_ITS | Encounter Summary ---
Author Organization [facility] Address [address] [place] [address] Care Team Providers Care 911 Emergency Services Dispatcher Name Role Phone Bridgett Krysta Family RECRUITING SPECIALIST Primary Care Provi yana George Rivera MD Unavailable Roge Britt MD Unavailable [phone] Trudy Quevedo MD Unavailable Swathi Navarro DO Unavailable [phone] Trudy Quevedo MD Primary Care Provider Swathi Navarro DO Unavailable [phone] Fatmata Fernandes RECRUITING SPECIALIST Unavailable [phone] Trudy Quevedo MD Unavailable Sepideh May RN Unavailable Ella Nobles PA-C Unavailable Ella Nobles PA-C Unavailable Encounter Details Date Type Department Care Team (Late st Contact Info) Description 05/18/2020 Telephone [facility] [place] - Electrophysiology [address] [place] [address] Dylan Warner MD 85 [place] [address] Social History Tobacco Use Types Packs/Day Years [...] AM EST documented as of this encounter Miscellaneous Notes * Telephone Encounter - Dimas Kent RN - 05/18/2020 3:21 PM EST Ok thank you. documented in this encounter Plan of Treatment Upcoming Encounters Date Type Department Care Team (Late st Contact Info) Description 02/24/2025 11:45 AM EDT Office Visit [address] 101 [place] [address] Trudy Quevedo MD 100 [facility] [address] [place] [address] documented as of this encounter Visit Diagnoses Not on filedocumented in this encounter Additional Health Concerns Infection Onset Date Last Indicated Resolved Time R/O COVID-19 (PUI) Comment:Bulk resolution for outdated COVID infections - Infection Prevention 11/30/2021 12/16/2021 03/23/2023 1:53 PM E DT documented as of this encounter Care Teams 911 Emergency Services Dispatcher Relationship Specialty Start Date End Date Krysta Urias, ERICK 851 [place] [address] PCP - General 12/21/18 11/10/20 George Rivera MD [address] [place] [address] 719 [place] [address] PCP - Cardiology Cardiovascular Disease 08/10/20 Swathi Navarro DO [address] [place] [address] PCP - Aetna Medicare Attributed 06/19/20 07/19/20 Trudy Quevedo MD [address] [place] [address] PCP - General Internal Medicine 11/11/20 Swathi Navarro DO [address] [place] [address] PCP - Aetna Medicare Attributed 10/17/20 02/16/21 Trudy Quevedo MD [address] [address] PCP - Aetna Medicare Attributed 06/19/21 Roge Britt MD [address] [place] [address] 100 [place] [address] Surgery, Orthopedic 08/18/20 Trudy Quevedo MD [address] [place] [address] Internal Medicine 08/18/20 Fatmata Fernandes APRN [address] [place] [address] ICP Community On Site Services Specialist 05/03/21 03/13/23 Sepideh May, RN 1290 Michele Esquivel [address] [address] [facility] Community On Site Services Specialist 03/22/23 Ella Nobles PA-C [address] [place] [address] Cardiovascular Disease 06/19/23 12/19/23 Ella Nobles PA-C [address] [place] [address] Physician Boarding House Cook Cardiovascular Disease 06/19/23 documented as of this encounter
--- OUTSIDE RECORDS SUMMARY | 2024-10-05 20:48 | XMS_ITS | Encounter Summary ---
Author Organization [facility] Address [address] [place] [address] Care Team Providers Care Assistant General Manager Name Role Phone George Rivera MD Unavailable Roge Britt MD Unavailable [phone] Trudy Quevedo MD Unavailable Trudy Quevedo MD Primary Care Provider Fatmata Fernandes MEDICAL STAFFING COORDINATOR Unavailable [phone] EmyTrudy chen MD Unavailable Sepideh May RN Unavailable Ella Nobles PA-C Unavailable [phone] Ella Nobles PA-C Unavailable [phone] Reason for Referral * Cardiology (Routine) - Closed Specialty Diagnoses / Procedures Referred By Contact Referred To Contact Cardiac Electrophysiology / Cardiology Diagnoses Atrial flutter, unspecified type (HCC) George Rivera MD [address] [place] [address] [address] [place] [address] Phone: tel:[phone] fax:[phone] Dylan Warner MD [address] [place] [address] Phone: tel: fax: Referral ID Status Reason Start Date Expiration Date V isits Requested Visits Authorized [id number] Closed Specialty Services Required 10/06/2021 10/07/2022 1 1 Comments dx atrial flutter Encounter Details Date Type Department Care Team (Late Contact Info) Description 10/06/2021 Community Orders Consulting Cardiologists, [address] [phone] George Rivera MD [address] [place] [address] Atrial flutter, unspecified type (HCC) (Primary Dx) Social History Tobacco Use Types Packs/Day Years [...] Upcoming Encounters Date Type Department Care Team ([facility] Contact Info) Description 02/24/2025 11:45 AM EDT Office Visit [address] [phone] Trudy Quevedo MD [address] [place] [address] Scheduled Referrals Name Type Priority Associated Diagnoses Order Schedule Amb Referral to Cardiac Electrophysiology Outpatient Referral Routine Atrial flutter, unspecified type (HCC) Ordered: 10/06/2021 documented as of this encounter Visit Diagnoses Diagnosis Atrial flutter, unspecified type (HCC)- Primary documented in this encounter Additional Health Concerns Infection Onset Date Last Indicated Resolved Time R/O COVID-19 (PUI) Comment:Bulk resolution for outdated COVID infections - Infection Prevention 11/30/2021 12/16/2021 03/23/2023 1:53 PM E DT documented as of this encounter Care Teams Assistant General Manager Relationship Specialty Start Date End Date George Rivera MD [address] [place] [address] 719 [place] [address] PCP - Cardiology Cardiovascular Disease 08/10/20 Trudy Quevedo MD [address] [place] [address] PCP - General Internal Medicine 11/11/20 Trudy Quevedo MD [address] [place] [address] PCP - Aetna Medicare Attributed 06/19/21 Roge Britt MD [address] [place], [place] [phone] Surgery, Orthopedic 08/18/20 Trudy Quevedo MD [address] [place] [address] Internal Medicine 08/18/20 Fatmata Fernandes, MEDICAL STAFFING COORDINATOR [address] [place] [address] [facility] Community Restaurant Hourly Team Member 05/03/21 03/13/23 Sepideh May, RN 1290 Michele Esquivel [address] [address] [facility] Community Restaurant Hourly Team Member 03/22/23 Ella Nobles PA-C [address] [place] [address] Cardiovascular Disease 06/19/23 12/19/23 Ella Nobles PA-C 1 [place] [address] Physician Terminal Computer Operator Cardiovascular Disease 06/19/23 documented as of this encounter
--- OUTSIDE RECORDS SUMMARY | 2024-10-05 20:48 | XMS_ITS | Encounter Summary ---
Author Organization [facility] Address [address] [place] [address] Care Team Providers Care Handle Sewer Name Role Phone Bridgett Tavares Family VALUE ADVISOR Primary Care Provi yana George Rivera MD Unavailable [phone] Roge Britt MD Unavailable [phone] Trudy Quevedo MD Unavailable Trudy Quevedo MD Primary Care Provider Swathi Navarro DO Unavailable [phone] Fatmata Fernandes APRN Unavailable [phone] Trudy Quevedo MD Unavailable [phone] Sepideh May RN Unavailable Ella Nobles PA-C Unavailable [phone] Ella Nobles PA-C Unavailable [phone] Encounter Details Date Type Department Care Team (Latest Contact Info) Description 09/30/[address] [place] [address] [address] [place] [address] Roge Britt MD [address] [place] [address] Encounter for laboratory testing for COVID-19 virus [...] Description 02/24/2025 11:45 AM EDT Office Visit [address] [phone] Trudy Quevedo MD [address] [place] [address] documented as of this encounter Procedures Procedure Name Priority Date/Time Associated Diagnosis Comments COVID-19 (SARS-COV-2) [facility] Routine 09/30/2020 3:13 PM EDT Encounter for laboratory testing for COVID-19 virus [ICD-10-CM] documented in this encounter Results * COVID-19 (SARS-CoV-2), [facility] (In-House) (09/30/2020 3:13 PM EDT) SARS CoV 2 Not Detected Not Detected 09/30/2020 7:46 PM EDT [facility] Comment: Negative results do not preclude SARS-CoV-2 (COVID-19)infection and should not be used as the sole basis for treatment or other patient management decisions. The SARS-CoV-2 (Covid-19) Nucleic Acid Amplification Assay is limited to laboratories certified under the Clinical Laboratory Improvement Amendments of 1988 (CLIA), 42 U.S.C. 263a, to perform high complexity tests. Nucleic acid amplication tests include RT-PCR and TMA. This assay has not been FDA cleared or approved, however, this assay has been authorized by the Food and Drug Administration (FDA) under an Emergency Use Authorization (EUA). ??Validation was completed and performance characteristics established by [facility] as per the FDA and CLIA requirement for this EUA. The Aptima SARS-CoV-2 assay Letter of Authorization, along with the authorized Fact Sheet for Healthcare Providers, the authorized Fact Sheet for Patients, and authorized labeling are available on the FDA website: https://www.fda.gov/medical-devices/gobaqgklz-vqakttmeeq-wgabtec-devices/emergen - n-fwnbmelmhflcnx-fsmlvyv-devices. Performed at [facility] [place] License [id number] ??CLIA [id number] Source Nasopharyngeal 09/30/2020 7:46 PM EDT [facility] Comment:Performed at [facility] [place] license No. [id number] CLIA No. [id number] Microbiology Nasopharyngeal swab / Unknown 09/30/2020 3:13 PM EDT 09/30/2020 3:13 PM EDT us Roge Britt MD MICROBIOLOGY - GENERAL ORDERABL ES Final Result [facility] [address] [place] [address] documented in this encounter Visit Diagnoses Diagnosis Encounter for laboratory testing for COVID-19 virus documented in this encounter Additional Health Concerns Infection Onset Date Last Indicated Resolved Time R/O COVID-19 (PUI) Comment:Bulk resolution for outdated COVID infections - Infection Prevention 11/30/2021 12/16/2021 03/23/2023 1:53 PM E DT documented as of this encounter Care Teams Handle Sewer Relationship Specialty Start Date End Date Medicine, Tavares Young, VALUE ADVISOR [address] [place] [phone] PCP - General 12/21/18 11/10/20 George Rivera MD [address] [place] [address] [address] [place] [phone] PCP - Cardiology Cardiovascular Disease 08/10/20 Trudy Quevedo MD [address] [place] [address] PCP - General Internal Medicine 11/11/20 Swathi Navarro DO [address] [place] [address] PCP - Aetna Medicare Attributed 10/17/20 02/16/21 Trudy Quevedo MD [address] [place] [address] PCP - Aetna Medicare Attributed 06/19/21 Roge Britt MD [address] [place], [place] [phone] Surgery, Orthopedic 08/18/20 Trudy Quevedo MD [address] [place], [place] [phone] Internal Medicine 08/18/20 Fatmata Fernandes APRN [address] [place] [address] [facility] Community Approver 05/03/21 03/13/23 Sepideh May, RN [address] [address] [facility] Community Approver 03/22/23 Ella Nobles PA-C [address] [place] [address] Cardiovascular Disease 06/19/23 12/19/23 Ella Nobles PA-C [address] [place] [address] Physician Rn Postpartum Cardiovascular Disease 06/19/23 documented as of this encounter
--- OUTSIDE RECORDS SUMMARY | 2024-10-05 20:48 | XMS_ITS | Encounter Summary ---
Author Organization Formerly [facility] Address [address] [place] [address] Care Team Providers Care Scientific Software Developer Name Role Phone George Rivera MD Unavailable [phone] Roge Britt MD Unavailable [phone] Trudy Quevedo MD Unavailable Trudy Quevedo MD Primary Care Provider [phone] Swathi Navarro DO Unavailable [phone] Fatmata Fernandes GRAIN RECEIVER Unavailable [phone] Trudy Quevedo MD Unavailable Sepideh May RN Unavailable Ella Nobles PA-C Unavailable Ella Nobles PA-C Unavailable Encounter Details Date Type Department Care Team (Late st Contact Info) Description 01/13/2021 Abstract [facility] [place] [address] [facility] [address] [place] [address] Judy Fong MA [address] [facility] [address] [place] [address] Social History Tobacco Use Types Packs/Day Years [...] Upcoming Encounters Date Type Department Care Team ([facility] st Contact Info) Description 02/24/2025 11:45 AM EDT Office Visit [address] [phone] Trudy Quevedo MD [address] [address] documented as of this encounter Visit Diagnoses Not on filedocumented in this encounter Additional Health Concerns Infection Onset Date Last Indicated Resolved Time R/O COVID-19 (PUI) Comment:Bulk resolution for outdated COVID infections - Infection Prevention 11/30/2021 12/16/2021 03/23/2023 1:53 PM E DT documented as of this encounter Care Teams Scientific Software Developer Relationship Specialty Start Date End Date George Rivera MD 85 [facility] [address] [phone] PCP - Cardiology Cardiovascular Disease 08/10/20 Trudy Quevedo MD 31 [facility] [address] [place] [address] PCP - General Internal Medicine 11/11/20 Swathi Navarro DO [address] [place] [address] PCP - [employer] Medicare Attributed 10/17/20 02/16/21 Trudy Quevedo MD [address] [place] [address] PCP - [employer] Medicare Attributed 06/19/21 Roge Britt MD [address] [place] [phone] Surgery, Orthopedic 08/18/20 Trudy Quevedo MD [address] [place] [phone] Internal Medicine 08/18/20 Fatmata Fernandes APRN [address] [place] [address] ICP Community Utility Bill Collector 05/03/21 03/13/23 Sepideh May RN [address] [address] ICP Community Utility Bill Collector 03/22/23 Ella Nobles PA-C [address] [place] [address] Cardiovascular Disease 06/19/23 12/19/23 Ella Nobles PA-C [address] [place] [address] Physician Supervisor Blueprinting And Photocopy Cardiovascular Disease 06/19/23 documented as of this encounter
--- OUTSIDE RECORDS SUMMARY | 2024-10-05 20:48 | XMS_ITS | Encounter Summary ---
Author Organization [facility] Address [address] [place] [address] Care Team Providers Care Shellfish Bed Worker Name Role Phone George Rivera MD Unavailable [phone] Roge Britt MD Unavailable [phone] Trudy Quevedo MD Unavailable Trudy Quevedo MD Primary Care Provider [phone] Swathi Navarro DO Unavailable [phone] Fatmata Fernandes ASSISTANT BOOKKEEPER Unavailable [phone] Trudy Quevedo MD Unavailable Sepideh May RN Unavailable Ella Nobles PA-C Unavailable Ella Nobles PA-C Unavailable [phone] Encounter Details Date Type Department Care Team (Late st Contact Info) Description 01/18/2021 Scanned Document [facility] CARDIOLOGY SCAN Cardiology, Scan Social History Tobacco Use Types [...] Upcoming Encounters Date Type Department Care Team ([facility] Contact Info) Description 02/24/2025 11:45 AM EDT Office Visit [address] [phone] Trudy Quevedo MD [address] [place] [address] documented as of this encounter Visit Diagnoses Not on filedocumented in this encounter Additional Health Concerns Infection Onset Date Last Indicated Resolved Time R/O COVID-19 (PUI) Comment:Bulk resolution for outdated COVID infections - Infection Prevention 11/30/2021 12/16/2021 03/23/2023 1:53 PM E DT documented as of this encounter Care Teams Shellfish Bed Worker Relationship Specialty Start Date End Date George Rivera MD 85 [facility] [address] [place] [address] PCP - Cardiology Cardiovascular Disease 08/10/20 Trudy Quevedo MD [address] [address] PCP - General Internal Medicine 11/11/20 Swathi Navarro DO [address] [place] [address] PCP - [employer] Medicare Attributed 10/17/20 02/16/21 Trudy Quevedo MD [address] [place] [address] PCP - [employer] Medicare Attributed 06/19/21 Roge Britt MD [address] [place] [address] Surgery, Orthopedic 08/18/20 Trudy Quevedo MD [address] [place] [address] Internal Medicine 08/18/20 Fatmata Fernandes APRN [address] [place] [address] ICP Community Correction Officer Head 05/03/21 03/13/23 Sepideh May RN [address] [phone] ICP Community Correction Officer Head 03/22/23 Ella Nobles PA-C [address] [place] [phone] Cardiovascular Disease 06/19/23 12/19/23 Ella Nobles PA-C [address] [place] [address] Physician Pbx Technician Cardiovascular Disease 06/19/23 documented as of this encounter
--- OUTSIDE RECORDS SUMMARY | 2024-10-05 20:48 | XMS_ITS | Clinical Summary ---
Author Organization Formerly [facility] Address [address] [place] [address] Care Team Providers Care Associate Merchandiser Name Role Phone George Rivera MD Unavailable Roge Britt MD Unavailable [phone] Trudy Quevedo MD Unavailable [phone] Trudy Quevedo MD Primary Care Provider [phone] Trudy Quevedo MD Unavailable [phone] Sepideh May RN Unavailable Ella Nobles PA-C Unavailable Allergies No known active allergies Medications cholecalciferol (CHOLECALCIFEROL) 25 MCG (1000 UT) tablet Take 1 tablet (1,000 Units total) by mouth daily. Active melatonin 5 MG Cap capsule Take 1 capsule (5 mg total) by mouth nightly. 5- 10 mg @@ Bedtime Active metoPROLOL SUCCINATE (TOPROL-XL) 50 MG 24 hr tablet Take 1 tablet (50 mg total) by mouth daily. 023 Active dabigatran etexilate (PRADAXA) 150 MG capsule Take 1 capsule (150 mg total) by mouth 2 (two) times a day. Swallow capsule whole; do not chew, break, or empty the contents of the capsule. Active Cyanocobalamin (VITAMIN B-12 PO) Take by mouth. Active amoxicillin (AMOXIL) 500 MG capsule TAKE 4 CAPSULES BY MOUTH 1 HOUR BEFORE DENTAL APPOINTMENT Active eplerenone (INSPRA) 25 MG tabletIndications: RVF (right ventricular failure) (HCC) Take 1 tablet (25 mg total) by mouth daily. 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 90 tablet 3 025 Active empagliflozin (JARDIANCE) 10 MG tabletIndications: Congestive heart failure, unspecified HF chronicity, unspecified heart failure type (HCC) Take 1 tablet (10 mg total) by mouth every morning. 90 tablet 3 025 Active acetaminophen (TYLENOL) 325 MG tablet Take 2 tablets (650 mg total) by mouth 4 times daily (every 6 hours) as needed for mild pain. Active simvastatin (ZOCOR) 20 MG tabletIndications: Other hyperlipidemia Take 1 tablet (20 mg total) by mouth nightly. 90 tablet 1 025 Active acetaminophen (TYLENOL) 325 MG tabletIndications: Typical atrial flutter (HCC) Take 2 tablets (650 mg total) by mouth once as needed for mild pain. 30 tablet 022 2024 Discontinued(D uplicate Prescription - No E-Cancel/No AVS) simvastatin (ZOCOR) 20 MG tabletIndications: Other hyperlipidemia Take 1 tablet (20 mg total) by mouth nightly. 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 12/10/2021 SVT (supraventricular tachycardia) 11/30/2021 Overview (11/30/2021): Added automatically from request for surgery [id number] SSS (sick sinus syndrome) 11/30/2021 Overview (11/30/2021): Added automatically from request for surgery [id number] Bradycardia 01/13/2021 Paroxysmal atrial fibrillation 01/13/2021 Essential hypertension 01/13/2021 Coronary artery disease invo [place]ving [place] coronary artery [place] heart 01/13/2021 Prediabetes 01/13/2021 Primary osteoarthritis of left hip 10/06/2020 Typical atrial flutter 04/22/2020 Overview (04/22/2020): Added automatically from request for surgery [id number] Secondary hyperaldosteronism Overview (03/03/2023): Pt with CHF on Furosemide Secondary hypercoagulable state Overview (03/03/2023): Male pt >65 yo with Afib and Pradaxa Ascending aorta dilatation Overview (03/03/2023): Per ECHO on 02/09/21 Encounters Date Type Department Care Team Description 09/17/[address] [place] [phone] Trudy Quevedo MD Other hyperlipidemia 09/09/2024 1:30 PM EDT Office Visit [facility] Heart & Vascular [facility] [address] [place] [address] Vinh Cervantes MD Acute on chronic diastolic CHF (congestive heart failure) (HCC) (Primary Dx) 09/09/2024 Travel 09/09/2024 Telephone [facility] [address] [facility] [address] [place] [address] Dejon Peters PA-C 09/05/2024 Orders Only [facility] Heart & Vascular [facility] [address] [facility] [address] [place] [phone] Vinh Cervantes MD Congestive heart failure, unspecified HF chronicity, unspecified heart failure type (HCC) 08/21/2024 11:15 AM EST Office Visit [facility] 100 [facility] [address] [place] [address] Trudy Quevedo MD Essential hypertension (Primary Dx); Paroxysmal atrial fibrillation (HCC); Stage 3b chronic kidney disease (HCC); Chronic combined systolic and diastolic congestive heart failure (HCC); Hypercholesterolemia 08/21/2024 Travel 08/19/2024 Telephone [facility] [address] [address] Johanny Kemp APRN 08/16/2024 Telephone [facility] [address] [phone] Trudy Quevedo MD 07/21/2024 Refill [facility] Heart Vascular [facility] [address] [facility] [address] [place] [address] Vinh Cervantes MD Medication Refill 07/09/2024 10:00 AM EST Office Visit [facility] Heart & Vascular [facility] [address] [place] [phone] Vinh Cervantes MD Acute on chronic diastolic CHF (congestive heart failure) (HCC) (Primary Dx); SVT (supraventricular tachycardia); Severe tricuspid regurgitation; RVF (right ventricular failure) (HCC) 07/09/2024 Travel from Last 3 Months Immunizations Immunization Administration Dates Next Due Covid-19 MRNA Vaccine - Pfiz er 12+ (Purple Cap) 08/14/2020,07/24/2020 Covid-19 Vaccine, Unspecified 09/04/2020 Influenza High-Dose Quadrivalent,(FLUZONE HIGH-DOSE), Perservative Free IM 0.7 mL 65 years and older 03/26/2022 Influenza High-Dose Trivalent,(FLUZONE HIGH-DOSE), Perservative Free IM 0.5 mL 65 years and older 03/05/2024 Influenza, Quadrivalent 03/22/2021 Influenza, Quadrivalent (FLU AD) Adjuvanted Preservative Free IM 65 years and older 04/07/2023 Influenza, Unspecified 04/13/2018,2015,04/04/2015,2013,04/10/2012 Pneumococcal Conjugate 13-Valent 11/21/2016 Tdap 01/13/2021,04/07/2011 Zoster Vaccine Live/Attenuat ed (Zostavax) 11/27/2015 Family History Medical History Relation Name Comments Aneurysm Brother 2 Heart disease Father Stroke Father Aneurysm Mother Relation Name Status Comments Brother 1 Alive Brother 2 Daughter Alive Father (Age 85) Mother (Age 85) Sister Alive Son Alive Social History Tobacco Use Types Packs/Day Years Used Date Smoking Tobacco: Former Cigarettes 1 50 0 06/1970 - 06/2020 Cigars Smokeless Tobacco: Never Tobacco Cessation:Counseling Given: Not Answered Comments:last cigar 5-6 weeks ago, last cigarettes 30 yrs ago Alcohol [...] Answer Date Recorded PHQ-2 Total Score 0 08/21/2024 Sex and Gender Information Value Date Recorded Sex Assigned at Male 09/01/2022 3:38 PM EDT Legal Sex Male 1:21 PM EDT Gender Identity Male 07/20/2021 2:13 PM EST Sexual Orientation Heterosexual (straight) 12/06 8:41 AM EDT Last Filed Vital Signs Vital Sign Reading Time Taken Comments Blood Pressure 122/68 09/09/2024 1:14 PM EDT Pulse 52 09/09/2024 1:14 PM EDT Temperature 36 ??C (96.8 ??F) 01/06/2023 9:2 2 AM EDT Respiratory Rate 16 08/21/2024 10:5 5 AM EST Oxygen Saturation 99% 09/09/2024 1:1 4 PM EDT Inhaled Oxygen Concentration - - Weight 89.3 kg (196 lb 12.8 oz) 025 1:14 PM EDT with shoes Height 170.2 cm (5' 7 ) 09/09/2024 1:14 PM EDT Body Mass Index 30.82 09/09/2024 1:14 PM EDT Plan of Treatment Upcoming Encounters Date Type Department Care Team (Late st Contact Info) Description 02/24/2025 11:45 AM EDT Office Visit [facility] [address] [facility] [address] [place] [address] Trudy Quevedo MD [address] [place] [address] Health Maintenance Due Date Last Done Comments Physical 1958 Zoster (Shingles) Vaccine (2 of 3) 01/22/2016 11/27/2015 RSV Vaccine 60 years and older and Patients (1 - 1-dose 75+ series) 02/01/2016 Pneumococcal Vaccines 50+ (2 of 2 - PPSV23) 01/16/2017 11/21/2016 COVID-19 Vaccine ( season) 2024 03/05/2024, 04/07/2023, 04/12/2022, Additional history exists Annual Wellness Visit 09/07/2024 09/07/2023 , 09/02/2022, 08/19/2021 DTaP/Tdap/Td Vaccines (3 - Td or Tdap) 01/13/2031 01/13/2021, 04/07/2011 Influenza Vaccine Completed 03/05/2024, , 03/26/2022, Additional history exists Hepatitis B Vaccines Aged Out No long er eligible based on patient's age to complete this topic Medical Devices Implanted Type Area Roof Service Technician Device Identifier Shelf Expiration Date Model / Serial / Lot [id number] Shell Acetabular 52mm Hip 3 Hole Poly Por R3 Std Sterl - [id number] Implanted:Qty : 1 on 10/06/2020 by Roge Britt MD at [facility] Joint Prosthesis Left: Hip [employer] S [id number] 08/18/2030 [id number] / / [id number] Liner Acetabular R3 0d 52mm 36mm Xlpe Hip Sterl - [id number] Implanted:Qty : 1 on 10/06/2020 by Roge Britt MD at [facility] Joint Prosthesis Left: Hip [employer] S [id number] 09/07/2030 [id number] / / [id number] Head Femoral +0mm 12/14 Shrt Taper 36mm Hip Blx D - [id number] Implanted:Qty : 1 on 10/06/2020 by Roge Britt MD at [facility] Joint Prosthesis Left: Hip [employer] DIV S [id number] 04/30/2030 [id number] / / [id number] Stem Femoral 116mm Prim Anthology Por 131d 9 High Offset Hip - [id number] Implanted:Qty : 1 on 10/06/2020 by Roge Britt MD at [facility] Joint Prosthesis Left: Hip [employer] DIV S [id number] 06/23/2030 [id number] / / [id number] 5076-58 Lead Pacing 58cm 6.2fr 2mm 10mm Spc Sm Straight Atr Vntrc - [id number] Implanted:Qty : 1 on 12/27/2021 by Dylan Warner MD at [facility] Lead Left: Chest [employer] T [id number] 07/14/2023 5076-58 / [id number] / [id number] Lead Pacing 52cm 6.2fr 2mm 10mm Spc Sm Straight Atr Vntrc - [id number] Implanted:Qty : 1 on 12/27/2021 by Dylan Warner MD at [facility] Lead Left: Chest [employer] T [id number] 09/21/2023 5076-52 / [id number] / [id number] Pacemaker Cardiac 7.4mm 50.8x46.6mm [place] Xt Dr Osmani Laboy - [id number] Implanted:Qty : 1 on 12/27/2021 by Dylan Warner MD at [facility] Pacemaker Left: Chest [employer] T [id number] 04/01/2023 [id number] / [id number] / [id number] Cover Hole Reflc R3 Acetab Thrd - [id number] Implanted:Qty : 1 on 10/06/2020 by Roge Britt MD at [facility] Screw Left: Hip [employer] DIV S [id number] 07/29/2030 [id number] / / [id number] Screw Bone Hip Acetabular Reflc R3 Cntr 35mm 6.5mm Sphrcl - [id number] Implanted:Qty : 1 on 10/06/2020 by Roge Britt MD at [facility] Screw Left: Hip [employer] DIV S [id number] 01/08/2030 [id number] / / [id number] Procedures Procedure Name Priority Date/Time Associated Diagnosis Comments LIPID PANEL REFLEX DIRECT LDL Routine 09/04/2024 12:00 PM EDT SVT (supraventricular tachycardia) Acute on chronic diastolic CHF (congestive heart failure) ([facility]) COMPLETE BLOOD COUNT, WITHOUT DIFFERENTIAL Routine 09/04/2024 12:00 PM EDT SVT (supraventricular tachycardia) Acute on chronic diastolic CHF (congestive heart failure) ([facility]) PROBNP, N-TERMINAL Routine 09/04/2024 12 :00 PM EDT SVT (supraventricular tachycardia) Acute on chronic diastolic CHF (congestive heart failure) ([facility]) BASIC METABOLIC PANEL Routine 09/04/2024 12:00 PM EDT SVT (supraventricular tachycardia) Acute on chronic diastolic CHF (congestive heart failure) ([facility]) ECG 12-LEAD Routine 07/09/2024 9:55 AM EST SVT (supraventricular tachycardia) from Last 3 Months Results * Lipid Panel Reflex Direct LDL (09/04/2024 12:00 PM EDT) Cholesterol, Total 117 <200 mg/dL [facility] Cholesterol, HDL 49 > OR = 40 mg/dL [facility] Triglycerides 113 <150 mg/dL [facility] LDL Cholesterol 48 mg/dL (calc) [facility] Comment: Reference range: <100 Desirable range <100 mg/dL for primary prevention; ?? <70 mg/dL for patients with CHD or diabetic patients with > or = 2 CHD risk factors. LDL-C is now calculated using the Lorenzo-Jermaine calculation, which is a validated novel method providing better accuracy than the Friedewald equation in the estimation of LDL-C. Lorenzo SS et al. WILFRID. 2013;310(19): 0702-1047 (http://education.The Clymb/faq/PMW030) Cholesterol/HDL Ratio 2.4 <5.0 (calc) [facility] Non HDL Chol. (LDL+VLDL) 68 <130 mg/dL (calc) [facility] Comment: For patients with diabetes plus 1 major ASCVD risk factor, treating to a non-HDL-C goal of <100 mg/dL (LDL-C of <70 mg/dL) is considered a therapeutic option. Blood Blood specimen / Unknown 09/04/2024 12:00 PM EDT 09/04/2024 12:00 PM EDT Narrative [facility] - 09/07/2024 8:19 AM EDT FASTING:YES FASTING: YES us Vinh Cervantes MD LAB BLOOD ORDERABLES Final Res ult [facility] [address] [place] [phone] * (ABNORMAL) proBNP, N-terminal (09/04/2024 12:00 PM EDT) Pathologist [facility] Probnp, N Terminal 1,931(H) <450 pg/mL [facility]/N gianfranco HarrelltillyCarolyn levyL[facility] Blood Blood specimen / Unknown 09/04/2024 12:00 PM EDT 09/04/2024 12:00 PM EDT Narrative [facility] - 09/07/2024 8:19 AM EDT FASTING:YES FASTING: YES us Vinh Cervantes MD LAB BLOOD ORDERABLES Final Res ult [facility] [address] [place] [address] * Complete Blood Count, without Differential (09/04/2024 12:00 PM EDT) Pathologist [facility] White Blood Cell Count 9.8 3.8 - 10.8 Thousand/u L [facility] Red Blood Cell Count 4.92 4.20 - 5.80 Million/uL [facility] Hemoglobin 15.1 13.2 - 17.1 g/dL [facility] Hematocrit 46.7 38.5 - 50.0 % [facility] MCV 94.9 80.0 - 100.0 fL [facility] MCH 30.7 27.0 - 33.0 pg [facility] MCHC 32.3 32.0 - 36.0 g/dL [facility] Comment: For adults, a slight decrease in the calculated MCHC value (in the range of 30 to 32 g/dL) is most likely not clinically significant; however, it should be interpreted with caution in correlation with other red cell parameters and the patient's clinical condition. RDW 12.8 11.0 - 15.0 % [facility] Platelet Count 237 140 - 400 Thousand/u L [facility] MPV 11.4 7.5 - 12.5 fL [facility] Blood Blood specimen / Unknown 09/04/2024 12:00 PM EDT 09/04/2024 12:00 PM EDT Narrative [facility] - 09/07/2024 8:19 AM EDT FASTING:YES FASTING: YES Vinh Cervantes MD LAB BLOOD ORDERABLES Final Res ult Performing Organization Address [facility] de Phone Number [facility] [address] [place] [address] * (ABNORMAL) BASIC METABOLIC PANEL (09/04/2024 12:00 PM EDT) Glucose 77 65 - 99 mg/dL [facility] Comment: ? Fasting reference interval Blood Urea Nitrogen (BUN) 38(H) 7 - 25 mg/dL [facility] Creatinine 1.74(H) 0.70 - 1.22 mg/dL [facility] Creatinine w/ eGFR 38(L) > OR = 60 mL/min/1.7 3m2 [facility] BUN/Creatinine Ratio 22 6 - 22 (calc) [facility] Sodium 143 135 - 146 mmol/L [facility] Potassium 4.1 3.5 - 5.3 mmol/L [facility] Chloride 104 98 - 110 mmol/L [facility] CO2 30 20 - 32 mmol/L [facility] Calcium 9.4 8.6 - 10.3 mg/dL [facility] Blood Blood specimen / Unknown 09/04/2024 12:00 PM EDT 09/04/2024 12:00 PM EDT Narrative [facility] - 09/07/2024 8:19 AM EDT FASTING:YES FASTING: YES us Vinh Cervantes MD LAB BLOOD ORDERABLES Final Res ult Per[facility] Organization Address [facility] de Phone Number [facility] [address] [place] [address] * ECG 12 lead (07/09/2024 9:55 AM EST) Ventricular rate 78 BPM EKG [facility] Atrial rate 78 BPM EKG [facility] P-R interval 310 ms EKG [facility] QRS duration 100 ms EKG [facility] Q-T interval 420 ms EKG [facility] QTC calculation (Bazett) 478 ms EKG [facility] P axis 21 degrees EKG [facility] R axis -40 degrees EKG [facility] T axis 17 degrees EKG [facility] 07/09/2024 9:55 AM EST Narrative EKG [facility] - 07/09/2024 10:20 AM EST Atrial-paced rhythm with prolonged AV conduction with occasional AV dual-paced complexes and with occasional Premature ventricular complexes Left axis deviation Low voltage QRS Inferior infarct , age undetermined Cannot rule out Anterior infarct , age undetermined Abnormal ECG When compared with ECG of 12-Dec-2023 10:04, Electronic ventricular pacemaker has replaced Electronic atrial pacemaker Confirmed by MD Cervantes Andrew ([id number]) on 07/09/2024 10:20:15 AM Procedure Note Vinh Cervantes MD - 07/09/2024 Atrial-paced rhythm with prolonged AV conduction with occasional AVdual-paced complexes and with occasional Premature ventricular complexes Left axis deviation Low voltage QRS Inferior infarct , age undetermined Cannot rule out Anterior infarct , age undetermined Abnormal ECG When compared with ECG of 12-Dec-2023 10:04, Electronic ventricular pacemaker has replaced Electronic atrialpacemaker Confirmed by MD Cervantes Andrew ([id number]) on 07/09/2024 10:20:15 AM us Vinh Cervantes MD ECG ORDERABLES Final Result [facility] from Last [address] [place] [address] [employer] MGD MEDICARE Advance Directives Documents on File Type Date Recorded Patient Title I Paraprofessional Expl anation Advance Directive-Scan 09/18/2020 GIOVANNY Cady WILL * Full Code (Latest Code Status on File) Date Activated Date Inactivated Comments 12/06/2022 8:47 AM * Full Code Date Activated Date Inactivated Comments 12/27/2021 11:01 AM 12/06/2022 8:44 AM * Full Code Date Activated Date Inactivated Comments 10/06/2020 5:22 PM 12/27/2021 7:16 AM * Full Code Date Activated Date Inactivated Comments 10/06/2020 11:19 AM 10/06/2020 5:22 PM * Full Code Date Activated Date Inactivated Comments 05/25/2020 2:05 PM 10/06/2020 10:21 AM Care Teams Associate Merchandiser Relationship Specialty Start Date End Date George Rivera MD [address] [place], [place] [phone] [place] [id number] PCP - Cardiology Cardiovascular Disease 08/10/20 Trudy Quevedo MD [address] [place] [address] PCP - General Internal Medicine 11/11/20 Trudy Quevedo MD [address] [place] [address] PCP - [employer] Medicare Attributed 06/19/21 Roge Britt MD [address] [place] [address] [address] [place] [address] Surgery, Orthopedic 08/18/20 Trudy Quevedo MD [address] [place] [address] [address] [place] [address] Internal Medicine 08/18/20 Sepideh May, RN [address] [address] [facility] Community Networking Technology Instructor 03/22/23 Ella Nobles, PA-C [address] [place] [address] Physician Pin Or Clip Fastener Cardiovascular Disease 06/19/23
--- OUTSIDE RECORDS SUMMARY | 2024-10-05 20:48 | XMS_ITS | Encounter Summary ---
Author Organization [facility] Address [address] [place] [address] Care Team Providers Care Mount Loader Name Role Phone BridgettKrysta Family NAMED ACCOUNT EXECUTIVE Primary Care Provi yana George Rivera MD Unavailable Roge Britt MD Unavailable [phone] Trudy Quevedo MD Unavailable Trudy Quevedo MD Primary Care Provider Swathi Navarro DO Unavailable [phone] Fatmata Fernandes APRN Unavailable [phone] Trudy Quevedo MD Unavailable Sepideh May RN Unavailable Ella Nobles PA-C Unavailable Ella Nobles PA-C Unavailable Encounter Details Date Type Department Care Team (Late st Contact Info) Description 11/06/2020 Scanned Document [facility] ORTHO SURGERY SCAN [facility] [address] [facility] [address] [place] [address] Social History Tobacco Use Types Packs/Day Years [...] Description 02/24/2025 11:45 AM EDT Office Visit [address] [phone] Trudy Quevedo MD [address] [place] [address] documented as of this encounter Visit Diagnoses Not on filedocumented in this encounter Additional Health Concerns Infection Onset Date Last Indicated Resolved Time R/O COVID-19 (PUI) Comment:Bulk resolution for outdated COVID infections - Infection Prevention 11/30/2021 12/16/2021 03/23/2023 1:53 PM E DT documented as of this encounter Care Teams Mount Loader Relationship Specialty Start Date End Date Bridgett, Krysta Young, ERICK [address] [place] [address] PCP - General 12/21/18 11/10/20 George Rivera MD [address] [place] [address] [address] [place] [phone] PCP - Cardiology Cardiovascular Disease 08/10/20 Trudy Quevedo MD [address] [place] [address] PCP - General Internal Medicine 11/11/20 Swathi Navarro DO [address] [place], [place] [phone] PCP - [employer] Medicare Attributed 10/17/20 02/16/21 Trudy Quevedo MD [address] [place] [phone] PCP - [employer] Medicare Attributed 06/19/21 Roge Britt MD [address] [place] [address] Surgery, Orthopedic 08/18/20 Trudy Quevedo MD [address] [place], [place] [phone] Internal Medicine 08/18/20 Fatmata Fernandes APRN [address] [place] [address] [facility] Community Inking Machine Tender 05/03/21 03/13/23 Sepideh May, JAZMYNE [address] [address] [facility] Community Inking Machine Tender 03/22/23 Ella Nobles, PA-C [address] [place] [address] Cardiovascular Disease 06/19/23 12/19/23 Ella Nobles PA-C [address] [place] [address] Physician Opener Verifier [employer] Cardiovascular Disease 06/19/23 documented as of this encounter
--- OUTSIDE RECORDS SUMMARY | 2024-10-05 20:48 | XMS_ITS | Encounter Summary ---
Author Organization [facility] Address [address] [place] [address] Care Team Providers Care Seater Grinder Name Role Phone George Rivera MD Unavailable Roge Britt MD Unavailable [phone] Trudy Quevedo MD Unavailable Trudy Quevedo MD Primary Care Provider Fatmata Fernandes [employer] MANAGER Unavailable [phone] Trudy Quevedo MD Unavailable Sepideh May RN Unavailable Ella Nobles PA-C Unavailable Ella Nobles PA-C Unavailable [phone] Encounter Details Date Type Department Care Team (Late st Contact Info) Description 12/29/2021 Telephone [facility] Heart & Vascular [place] - Electrophysiology [address] [place] [phone] Dylan Warner MD [address] [place] [address] Social History Tobacco Use Types Packs/Day Years Used Date Smoking Tobacco: Former Cigarettes 1 30 0 06/1990 - 06/2020 Cigars Smokeless Tobacco: Never Comments:last cigar 5-6 week s ago, last cigarettes 30 yrs ago Alcohol Use Standard Drinks/Week Comments Yes 0 (1 standard drink = 0.6 oz pur e alcohol) Very rarely AUDIT-C Answer Date Recorded Q1: How often do you have a drink containing alc ohol? Monthly or less 12/27/2021 Q2: How many drinks containi ng alcohol do you have on a typical day when you are drinking? 1 or 2 12/27/2021 Q3: How often do you have si x or more drinks on one occasion? Never 12/27/2021 PHQ-2 Answer Date Recorded PHQ-2 Total Score 0 08/19/2021 Sex and Gender Information Value Date Recorded Sex Assigned at Male 09/01/2022 3:38 PM EDT Legal Sex Male 1:21 PM EDT Gender Identity Male 07/20/2021 2:13 PM EST Sexual Orientation Heterosexual (straight) 12/06 8:41 AM EDT COVID-19 Exposure Response Date Recorded In the last 10 days, have fransico u been in contact with someone who was confirmed or suspected to have Coronavirus/COVID-19? No / Unsure 12/30/2021 9:55 AM EDT documented as of this encounter Miscellaneous Notes * Telephone Encounter - Hunter Palomo RN - 12/29/2021 4:19 PM EDT Called Danny and advised that per George Ngo APRN he is to not remove the dressing, the mesh dressing can stick to the adhesive used for the pacemake site. Danny will come into the office at 10:00 am tomorrow for a provider to look at the wound site and remove the dressing. documented in this encounter Plan of Treatment Upcoming Encounters Date Type Department Care Team (Late st Contact Info) Description 02/24/2025 11:45 AM EDT Office Visit [address] [place] [phone] Trudy Quevedo MD [address] [place] [address] documented as of this encounter Visit Diagnoses Not on filedocumented in this encounter Additional Health Concerns Infection Onset Date Last Indicated Resolved Time R/O COVID-19 (PUI) Comment:Bulk resolution for outdated COVID infections - Infection Prevention 11/30/2021 12/16/2021 03/23/2023 1:53 PM E DT documented as of this encounter Care Teams Seater Grinder Relationship Specialty Start Date End Date George Rivera MD [address] [place], [place] [address] [place] [address] PCP - Cardiology Cardiovascular Disease 08/10/20 Trudy Quevedo MD [address] [place] [address] PCP - General Internal Medicine 11/11/20 Trudy Quevedo MD [address] [facility] [address] [place] [address] PCP - [employer] Medicare Attributed 06/19/21 Roge Britt MD [address] [place] [address] Surgery, Orthopedic 08/18/20 Trudy Quevedo MD [address] [place] [address] Internal Medicine 08/18/20 Fatmata Fernandes APRN [address] [place] [address] [facility] Community Recreation Director 05/03/21 03/13/23 Sepideh May, RN [address] [address] ICP Community Recreation Director 03/22/23 Ella Nobles PA-C [address] [place] [address] Cardiovascular Disease 06/19/23 12/19/23 Ella Nobles PA-C [address] [place] [address] Physician Patient Financial Services Manager Cardiovascular Disease 06/19/23 documented as of this encounter
--- OUTSIDE RECORDS SUMMARY | 2024-10-05 20:48 | XMS_ITS | Encounter Summary ---
Author Organization [facility] Address [address] [place] [address] Care Team Providers Care Biofuels Production Manager Name Role Phone George Rivera MD Unavailable Roge Britt MD Unavailable [phone] Trudy Quevedo MD Unavailable Trudy Quevedo MD Primary Care Provider [phone] Fatmata Fernandes HAND SEWER Unavailable [phone] Trudy Quevedo MD Unavailable [phone] Sepideh May RN Unavailable Ella Nobles PA-C Unavailable Ella Nobles PA-C Unavailable Encounter Details Date Type Department Care Team (Late st Contact Info) Description 03/17/2021 Scanned Document [facility] CARDIOLOGY SCAN Cardiology, Scan Social History Tobacco [...] Description 02/24/2025 11:45 AM EDT Office Visit [address] [phone] Trudy Quevedo MD [address] [phone] documented as of this encounter Visit Diagnoses Not on filedocumented in this encounter Additional Health Concerns Infection Onset Date Last Indicated Resolved Time R/O COVID-19 (PUI) Comment:Bulk resolution for outdated COVID infections - Infection Prevention 11/30/2021 12/16/2021 03/23/2023 1:53 PM E DT documented as of this encounter Care Teams Biofuels Production Manager Relationship Specialty Start Date End Date George Rivera MD 85 [facility] [address] [place] [address] PCP - Cardiology Cardiovascular Disease 08/10/20 Trudy Quevedo MD 31 [facility] [address] [place] [address] PCP - General Internal Medicine 11/11/20 Trudy Quevedo MD [address] [address] PCP - [employer] Medicare Attributed 06/19/21 Roge Britt MD [address] [place] [address] Surgery, Orthopedic 08/18/20 Trudy Quevedo MD [address] [place] [address] Internal Medicine 08/18/20 Fatmata Fernandes, HAND SEWER [address] [place] [address] [facility] Community Car Conditioner 05/03/21 03/13/23 Sepideh May, JAZMYNE [address] [address] ICP Community Car Conditioner 03/22/23 Ella Nobles PA-C [address] [place] [address] Cardiovascular Disease 06/19/23 12/19/23 Ella Nobles PA-C [address] [place] [address] Physician Actuarial Associate Cardiovascular Disease 06/19/23 documented as of this encounter
--- OUTSIDE RECORDS SUMMARY | 2024-10-05 20:48 | XMS_ITS | Encounter Summary ---
Author Organization [facility] Address [address] [place] [address] Care Team Providers Care Temporary Help Agency Referral Clerk Name Role Phone Bridgett Krysta Family COMMUNITY ENGAGEMENT SPECIALIST Primary Care Provi yana George Rivera MD Unavailable [phone] Roge Britt MD Unavailable [phone] Trudy Quevedo MD Unavailable Swathi Navarro DO Unavailable Trudy Quevedo MD Primary Care Provider Swathi Navarro DO Unavailable [phone] Fatmata Fernandes COMMUNITY ENGAGEMENT SPECIALIST Unavailable [phone] Trudy Quevedo MD Unavailable [phone] Sepideh May RN Unavailable Ella Nobles PA-C Unavailable Ella Nobles PA-C Unavailable Encounter Details Date Type Department Care Team (Late st Contact Info) Description 05/08/2020 Telephone [facility] Heart & Vascular [place] - Electrophysiology [address] [place] [phone] Dylan Warner MD [address] [place] [address] Social History Tobacco Use Types Packs/Day Years [...] Telephone Encounter - Dimas Kent RN - 05/13/2020 8:44 AM EST I left him a voice mail this morning. I asked him to call our office if he had any questions. * Telephone Encounter - Dimas Kent RN - 05/12/2020 2:28 PM EST Bentley Wood, I tried re-ordering the test to the [facility] site but wasn't able to. I called the Covid hotline and they changed it for him. You can see it through the appt desk. Their testing site is from 11 a.m.-7 p.m. [facility]. He's all set for 05/21. documented in this encounter Plan of Treatment Upcoming Encounters Date Type Department Care Team (Late st Contact Info) Description 02/24/2025 11:45 AM EDT Office Visit [address] [place] [address] Trudy Quevedo MD [address] [place] [address] documented as of this encounter Visit Diagnoses Not on filedocumented in this encounter Additional Health Concerns Infection Onset Date Last Indicated Resolved Time R/O COVID-19 (PUI) Comment:Bulk resolution for outdated COVID infections - Infection Prevention 11/30/2021 12/16/2021 03/23/2023 1:53 PM E DT documented as of this encounter Care Teams Temporary Help Agency Referral Clerk Relationship Specialty Start Date End Date Krysta Urias, COMMUNITY ENGAGEMENT SPECIALIST [address] [place] [address] PCP - General 12/21/18 11/10/20 George Rivera MD [address] [place], [place] [address] [place] [id number] PCP - Cardiology Cardiovascular Disease 08/10/20 Swathi Navarro DO [address] [place] [address] PCP - [employer] Medicare Attributed 06/19/20 07/19/20 Trudy Quevedo MD [address] [place] [address] [address] [place] [address] PCP - General Internal Medicine 11/11/20 Swathi Navarro DO [address] [place] [id number] PCP - [employer] Medicare Attributed 10/17/20 02/16/21 Trudy Quevedo MD [address] [place] [address] PCP - [employer] Medicare Attributed 06/19/21 Roge Britt MD 31 [facility] [address] [place] [address] Surgery, Orthopedic 08/18/20 Trudy Quevedo MD 31 [facility] [address] [place] [address] Internal Medicine 08/18/20 Fatmata Fernandes APRN [address] [place] [address] ICP Community Bleacher Lard 05/03/21 03/13/23 Sepideh May, RN [address] [address] ICP Community Bleacher [place]ard 03/22/23 Ella Nobles PA-C [address] [place] [address] Cardiovascular Disease 06/19/23 12/19/23 Ella Nobles PA-C [address] [place] [address] Physician Program Schedule Clerk Cardiovascular Disease 06/19/23 documented as of this encounter
--- NOTE | 2024-10-05 21:18 | ED.GENADULT ---
HPI - General Adult General Chief complaint: Fall Stated complaint: fell out of bed this morning Time Seen by Provider: 10/05/24 20:45 Source: patient, family, RN notes reviewed and old records reviewed Mode of arrival: ambulatory Limitations: no limitations History of Present Illness ED Provider: Lan GREGORY narrative: 84-year-old male past medical history significant for atrial fibrillation on Eliquis, hypertension, hyperlipidemia presents for evaluation after falling early this morning. The patient resides in an independent living facility in [facility]. Apparently over the last couple of days he has had some congested and coughing. This seems to have improved today. However around 3:00 a.m. this morning he tried to get out of bed and was unable to do so. Bathroom but could not get up. He fell onto the ground. He reports crawling on his hands and knees himself up. He reports that he was on the ground for no more than 20 minutes He thinks he fell twice, when he tried to get up once he fell again landing on his stomach He did strike his forehead on the ground. Denies any loss of consciousness He was unwilling to come to the hospital earlier but family recommended that he come to be evaluated due to his anticoagulation and falls Related Data Allergies Allergy/AdvReac Type Severity Reaction Status Date / Time No Known Allergies Allergy Verified 10/05/24 20:21 Review of Systems Constitutional: Constitutional: Denies body ache(s), Denies chills, Reports frequent falls, Reports headache(s) and Reports weakness Eyes: Eyes: Denies blurry vision ENT: Denies vertigo, Denies dizziness and Reports headache(s) Cardiovascular: Cardiovascular: Denies chest pain and Denies dyspnea Respiratory: Respiratory: Reports chest congestion, Reports cough and Denies dyspnea Gastrointestinal: Gastrointestinal: Denies abdominal pain, Denies nausea and Denies vomiting Musculoskeletal: Musculoskeletal: Reports back pain, Reports arthralgias, Denies joint swelling and Denies limited range of motion Integumentary/Breasts: Skin/Breast: Denies erythema, Denies rash, Reports unusual bruising and Denies wounds Neurologic: Denies vertigo, Denies dizziness, Reports frequent falls, Reports headache(s) and Reports weakness Psychiatric: Psychiatric: Denies anxiety PMFSH Social History Social History Advance Directives: No Advance Directives Information Provided: No Do you have a plan to hurt others: No Plan Physical Exam ED Vital Signs: Vital Signs - 24 hr 10/05/24 20:16 10/05/24 22:34 10/05/24 22:35 Temperature 98.7 F 98.2 F Pulse Rate 97 93 93 Respiratory Rate 16 16 Blood Pressure 116/57 L 105/55 L 105/55 L Pulse Oximetry 97 94 Oxygen Delivery Method Room Air Room Air Oxygen Flow Rate 10/05/24 22:37 10/05/24 22:40 10/05/24 23:14 Temperature Pulse Rate 93 96 Respiratory Rate Blood Pressure 117/60 118/61 Pulse Oximetry 95 Oxygen Delivery Method Nasal Cannula Oxygen Flow Rate 2 10/05/24 23:38 10/06/24 00:17 Temperature Pulse Rate 79 Respiratory Rate 22 H Blood Pressure Pulse Oximetry 78 L 95 Oxygen Delivery Method Room Air Nasal Cannula Oxygen Flow Rate 3 BMI result Body Mass Index 29.3 Const General: healthy appearing, comfortable, no acute distress, alert and awake Nutritional Appearance: well nourished Orientation/consciousness: patient oriented x3 HENMT Other: The patient has an abrasion to the left side of the forehead, no deep wounds or active bleeding. Throat: Yes posterior oropharynx normal Eyes Eyelids: Yes eyelids normal Conjunctivae: conjunctivae normal Sclerae: sclerae normal Corneas: corneas normal Pupils: Equal, round and reactive pupils present EOM: EOMs intact bilaterally Neck Neck: Yes full ROM Resp Effort & Inspection: normal respiratory effort, able to speak in complete sentences and not labored Cardio Rate: regular rate Rhythm: regular rhythm GI Inspection: No distended Palpation (GI): Soft to palpation, not firm, nontender, no guarding and not rigid Back/Spine/Pelvis Other: The patient has lower thoracic and upper lumbar tenderness without step-offs or deformities. No open wounds. There is a small, left flank contusion. This area is tender to palpation. Skin General skin exam: elasticity normal Neuro General: patient oriented x3 Cranial nerves: Yes CN's II-XII intact bilaterally, Yes Equal, round and reactive pupils present and Yes Bilaterally intact EOM present Cognition (Neuro): normal cognition Extrem Other: Moving all extremities well. There is a left elbow edema, contusion. No open wounds or bleeding. The patient has full range of motion with flexion, extension. There is some edema and ecchymosis to the right forearm this is distal to the joint of the elbow. Again, no open wounds and full range of motion. Course Reevaluation(s) Reevaluation #1: Patient's troponin was elevated, repeat is ordered for 11:30 p.m.. During the patient's orthostatics, he was negative for orthostatic hypotension, however he became hypoxic when standing to 88% which may be related to his influenza diagnosis. This was done prior to him receiving tramadol in his therefore not likely related to sedation. Time: 23:06 Medications Administered Discontinued Medications Generic Name Dose Route Start Last Admin Trade Name Freq PRN Reason Stop Dose Admin Sodium Chloride 1,000 mls @ 999 mls/hr 10/05/24 22:15 10/05/24 23:11 Ns IV 10/05/24 23:15 Infused .Q1H1M LIZA Infusion Oseltamivir Phosphate 75 mg 10/05/24 23:07 10/05/24 23:55 Oseltamivir Phosphate 75 Mg Capsule PO 10/05/24 23:08 75 mg ONCE ONE Administration Tramadol HCl 50 mg 10/05/24 22:23 10/05/24 22:58 Tramadol Hcl 50 Mg Tablet PO 10/05/24 22:24 50 mg ONCE ONE Administration Medical Decision Making Medical Decision Making [facility] Narrative: 84-year-old male presents for evaluation after at least 1 and likely 2 falls this morning. He reports that he was not on the ground for any extended period. He does have a minor abrasion to his forehead. He was anticoagulated, plan for CT scan of the brain and cervical spine. We will get an x-ray of the left elbow, thoracic and lumbar spine as well as chest x-ray. He appears quite well Rx. Low suspicion for fracture of the left upper extremity. Basic labs will be ordered including a CPK. We will check an EKG, and we will obtain viral swabs and orthostatic vital signs Differential Diagnosis Differential Diagnoses: The differential diagnosis associated with the presentation includes Intracranial hemorrhage Cervical fracture Contusion Cervical strain Fracture Hematoma Left elbow effusion Viral syndrome Admission/Observation Consideration of admission/observation: Escalation of care including admission/observation considered Lab Data [facility] Lab Attestation statement: I reviewed the patient's lab results. Patient has no leukocytosis, he has a mild anemia. This is a normocytic anemia. Unclear baseline. No significant electrolyte abnormalities. The patient has an elevated BUN and creatinine of 54 and 2.19 respectively. He does carry diagnosis of chronic kidney disease stage 3. The patient's troponin is elevated 94.5 denies any chest pain, we will repeat a troponin. Slight elevation of CK to 1035. This is likely due to curling of the ground for 20 minutes. We will treat with 1 L of IV fluids 10/05/24 21:22 10/05/24 21:22 Labs: Lab Results 10/05/24 10/05/24 10/05/24 Range/Units 21:14 21:15 21:22 WBC 6.3 (4.8-10.8) X10*3/uL RBC 4.25 L (4.60-5.80) X10*6/uL Hgb 13.0 L (14.0-18.0) g/dl Hct 40.1 L (42.0-52.0) % MCV 94.4 (80.0-98.0) fL MCH 30.6 (27.0-33.0) pg MCHC 32.4 (31.0-36.0) g/dl RDW 15.0 (11.0-16.0) % Plt Count 151 L (160-400) X10*3/uL MPV 10.7 (9.4-12.4) fL Immature Gran % (Auto) 0.5 H (0.0-0.4) % Neut % (Auto) 72.0 (45-73) % Lymph % (Auto) 7.4 L (20-40) % Heard % (Auto) 19.8 H (2-11) % Eos % (Auto) 0.0 (0-4) % Baso % (Auto) 0.3 (0-2) % Lymph # (Auto) 0.5 L (1.2-4.9) X10*3/uL Heard # (Auto) 1.2 (0.1-1.2) X10*3/uL Eos # (Auto) 0.0 (0.0-0.4) X10*3/uL Baso # (Auto) 0.0 (0.0-0.2) X10*3/uL Abs Immat Gran (auto) 0.03 (0.00-0.03) X10*3/uL Absolute Neuts (auto) 4.5 (2.0-8.3) x10*3/uL Absolute Nucleated RBC 0.000 (0.0-0.012) X10*3/uL Nucleated RBC % (auto) 0.0 (0.0-0.2) /100WBC PT 18.4 H (10.9-12.4) SEC INR 1.6 H (0.9-1.1) Sodium 142 (135-145) mmol/L Potassium 3.6 (3.3-5.1) mmol/L Chloride 103 (96-108) mmol/L Carbon Dioxide 27 (22-29) mmol/L Anion Gap 16 (12-20) BUN 54 H (9-16) mg/dL Creatinine 2.19 H (0.5-1.4) mg/dL Estim Creat Clear Calc 26.6 Estimated GFR 29 Random Glucose 67 (60-115) mg/dL Calcium 8.7 (8.4-10.2) mg/dL Magnesium 2.4 (1.6-2.6) mg/dL Total Bilirubin 0.7 (0.0-1.0) mg/dL Direct Bilirubin 0.3 (0.0-0.5) mg/dL AST 42 H (5-37) U/L ALT 10 (0-40) U/L Alkaline Phosphatase 22 L (39-117) U/L Total Creatine Kinase 1035 H (38-174) U/L Troponin I High Sens (<3.5-35.0) ng/L Total Protein 6.7 (6.5-8.0) g/dL Albumin 3.7 (3.5-5.0) g/dL Influenza Type A (PCR) POSITIVE A (Negative) Influenza Type B (PCR) NEGATIVE (Negative) RSV RNA Qual (PCR) NEGATIVE (Negative) SARS-CoV-2 RNA (RT-PCR) NEGATIVE (Negative) 10/05/24 10/05/24 Range/Units 21:23 23:54 WBC (4.8-10.8) X10*3/uL RBC (4.60-5.80) X10*6/uL Hgb (14.0-18.0) g/dl Hct (42.0-52.0) % MCV (80.0-98.0) fL MCH (27.0-33.0) pg MCHC (31.0-36.0) g/dl RDW (11.0-16.0) % Plt Count (160-400) X10*3/uL MPV (9.4-12.4) fL Immature Gran % (Auto) (0.0-0.4) % Neut % (Auto) (45-73) % Lymph % (Auto) (20-40) % Heard % (Auto) (2-11) % Eos % (Auto) (0-4) % Baso % (Auto) (0-2) % Lymph # (Auto) (1.2-4.9) X10*3/uL Heard # (Auto) (0.1-1.2) X10*3/uL Eos # (Auto) (0.0-0.4) X10*3/uL Baso # (Auto) (0.0-0.2) X10*3/uL Abs Immat Gran (auto) (0.00-0.03) X10*3/uL Absolute Neuts (auto) (2.0-8.3) x10*3/uL Absolute Nucleated RBC (0.0-0.012) X10*3/uL Nucleated RBC % (auto) (0.0-0.2) /100WBC PT (10.9-12.4) SEC INR (0.9-1.1) Sodium (135-145) mmol/L Potassium (3.3-5.1) mmol/L Chloride (96-108) mmol/L Carbon Dioxide (22-29) mmol/L Anion Gap (12-20) BUN (9-16) mg/dL Creatinine (0.5-1.4) mg/dL Estim Creat Clear Calc Estimated GFR Random Glucose (60-115) mg/dL Calcium (8.4-10.2) mg/dL Magnesium (1.6-2.6) mg/dL Total Bilirubin (0.0-1.0) mg/dL Direct Bilirubin (0.0-0.5) mg/dL AST (5-37) U/L ALT (0-40) U/L Alkaline Phosphatase (39-117) U/L Total Creatine Kinase (38-174) U/L Troponin I High Sens 94.5 H 84.6 H (<3.5-35.0) ng/L Total Protein (6.5-8.0) g/dL Albumin (3.5-5.0) g/dL Influenza Type A (PCR) (Negative) Influenza Type B (PCR) (Negative) RSV RNA Qual (PCR) (Negative) SARS-CoV-2 RNA (RT-PCR) (Negative) Independent Interpretation I performed an independent interpretation of an: EKG and Plain X-Ray Interpretation: Normal sinus rhythm with a rate of [address] segment elevation OK Radiology Impression Discussion of test interpretation with radiology: I have reviewed the radiologist's reading. Radiologist Impression: Findings: No intra-axial mass, midline shift, hydrocephalus, or acute hemorrhage. Periventricular and subcortical white matter hypoattenuation likely chronic small-vessel ischemic changes. Intracranial atherosclerosis. Opacified right maxillary sinus. No acute findings in the orbits. No skull fracture. IMPRESSION: 1. No acute intracranial findings. 2. Opacified right maxillary sinus. This document has been electronically signed by: Tutu Hearn MD on 10/05/2024 21:12:03 Findings: Normal vertebral body alignment. Multilevel degenerative changes. No acute fractures or dislocations. Visualized intracranial contents are unremarkable. No cervical fluid collections or masses. Bilateral carotid atherosclerosis. Lung apices are clear. IMPRESSION: 1. No acute osseous injury. This document has been electronically signed by: Tutu Hearn MD on 10/05/2024 21:03:47 Prescription Management I considered prescription management with: Pain Medication Discharge Plan Discharge Clinical Impression: Influenza Patient Disposition: Admitted As Inpatient Print Language: Congolese
[2024-10-05 21:32] LABS: MANUAL DIFF FLAG NO
[2024-10-05 21:33] LABS: Basophils Percent Auto 0.3 % (0-2); Hematocrit 40.1 % (42.0-52.0); Imm Gran Abs Auto 0.03 X10*3/uL (0.00-0.03); Imm Gran Pct Auto 0.5 % (0.0-0.4); Lymphocytes Absolute Auto 0.5 X10*3/uL (1.2-4.9); Lymphocytes Percent Auto 7.4 % (20-40); Mean Corpuscular HGB Conc 32.4 g/dl (31.0-36.0); Mean Corpuscular Hemoglobin 30.6 pg (27.0-33.0); Mean Corpuscular Volume 94.4 fL (80.0-98.0); Mean Platelet Volume 10.7 fL (9.4-12.4); Monocytes Absolute Auto 1.2 X10*3/uL (0.1-1.2); Monocytes Percent Auto 19.8 % (2-11); Neutrophils Absolute Auto 4.5 x10*3/uL (2.0-8.3); Platelet Count 151 X10*3/uL (160-400); Red Blood Count 4.25 X10*6/uL (4.60-5.80); White Blood Count 6.3 X10*3/uL (4.8-10.8)
[2024-10-05 21:39] LABS: INTERNATIONAL NORM RATIO 1.6 (0.9-1.1); Prothrombin Time 18.4 SEC (10.9-12.4)
[2024-10-05 21:58] LABS: Alanine Aminotransferase 10 U/L (0-40); Albumin Level 3.7 g/dL (3.5-5.0); Alkaline Phosphatase 22 U/L (39-117); Anion Gap 16 (12-20); Aspartate Amino Transferase 42 U/L (5-37); Bilirubin Direct 0.3 mg/dL (0.0-0.5); Bilirubin Total 0.7 mg/dL (0.0-1.0); Blood Urea Nitrogen 54 mg/dL (9-16); Calcium 8.7 mg/dL (8.4-10.2); Carbon Dioxide 27 mmol/L (22-29); Chloride 103 mmol/L (96-108); Creatinine Clr Calc Pharmacy 26.6; Estimated Glomerular Filt Rate 29; Glucose Random 67 mg/dL (60-115); Magnesium 2.4 mg/dL (1.6-2.6); Potassium 3.6 mmol/L (3.3-5.1); Sodium 142 mmol/L (135-145); Total Protein 6.7 g/dL (6.5-8.0)
[2024-10-05 22:06] LABS: Troponin-I High Sensitivity 94.5 ng/L (<3.5-35.0)
[2024-10-05 22:09] LABS: Influenza A PCR POSITIVE (Negative); Influenza B PCR NEGATIVE (Negative); Resp Syncy Virus RNA Qual PCR NEGATIVE (Negative); SARS COV2 PCR INHOUSE NEGATIVE (Negative)
[2024-10-05] MEDS: 0.9 % Sodium Chloride 1,000 ML 999 ML IV (22:10)
[2024-10-05] MEDS: traMADoL HCL 50 MG TABLET PO (22:58)
--- NOTE | 2024-10-05 23:13 | PC.NURSE ---
Pt noted to be 89% on room air at rest in bed. Pt placed on 2LNC and O2 sat up 95%. Physician notified.
[2024-10-05] MEDS: Oseltamivir Phosphate 75 MG CAPSULE PO (23:55)
[2024-10-06] VITALS (9 sets, daily range): BP systolic 97–145; BP diastolic 57–71; PULSE 73–100; RESP 18–22; TEMP 36.1–36.8; O2SAT 92–95; BMI 31.6
[2024-10-06 00:30] LABS: Troponin-I High Sensitivity 84.6 ng/L (<3.5-35.0)
[2024-10-06] MEDS: Acetaminophen 1,000 MG/100 ML PIGGYBACK 400 MG IV (00:56)
--- NOTE | 2024-10-06 01:23 | P.HPHOSP_ITS ---
History of Present Illness Date of Service: 10/06/24 Chief Complaint: Fall This is a 84-year-old male with pertinent history of congestive heart failure, unspecified EF, atrial fibrillation on dabigatran and status post pacemaker, chronic kidney disease, CAD status post CABG who was brought to the emergency department for evaluation after a fall. Patient resides in [place] and about 1 day prior to presentation he fell out of his bed while trying to get up at around 03:00. States he has been feeling weak for the last 1-2 days. Did not lose consciousness prior to falling. No dizziness or lightheadedness before the fall. No chest pain or palpitations prior to fall. No jerking movement of extremities. Patient was on the ground for about 20 minutes as he could not get up due to weakness. Patient has been having runny nose, nonproductive cough, easy fatigability that started 1-2 days ago. COVID negative at outside independent living facility. Patient did hit his head and is on anticoagulants. No fever, chills, abdominal pain, changes in urinary or bowel habits. In the emergency department, patient was found to be positive for influenza A and satting 78% on room air. He was requiring 3 L supplemental oxygen in the ER. Review of Systems 2 Constitutional: Constitutional: Reports fatigue, Reports lethargy, Reports malaise, Reports poor appetite and Reports weakness Cardiovascular: Cardiovascular: Reports no additional cardiovascular complaints Respiratory: Respiratory: Reports cough Gastrointestinal: Gastrointestinal: Reports no additional gastrointestinal complaints Genitourinary: Genitourinary: Reports no additional male genitourinary complaints Neurologic: Reports weakness Endocrine: Endocrine: Reports fatigue [facility] Medical History (Updated 10/06/24 @ 01:31 by Porter Hicks MD) Chronic kidney disease Coronary artery disease Atrial fibrillation Pertinent family history: Not significant due to age Surgical History (Updated 10/06/24 @ 01:29 by Porter Hicks MD) Status post coronary artery bypass graft Social History Advance Directives: No Advance Directives Information Provided: No Do you have a plan to hurt others: No Plan Meds Allergies Allergy/AdvReac Type Severity Reaction Status Date / Time No Known Allergies Allergy Verified 10/05/24 20:21 Physical Exam 2 Vital Signs and Narrative: Vital Signs: Last Vital Signs Temp 98.2 F 10/05/24 22:34 Pulse 79 10/06/24 00:17 Resp 22 H 10/06/24 00:17 BP 118/61 10/05/24 22:40 Pulse Ox 95 10/06/24 00:17 O2 Del Method Nasal Cannula 10/06/24 00:17 O2 Flow Rate 3 10/06/24 00:17 BMI result Body Mass Index 29.3 Elderly male lying in bed in no distress Neck supple, no JVD, forehead abrasion+ Regular rate and rhythm, S1-S2 heard Regular breath sounds bilaterally, no wheezing or crackles appreciated Abdomen soft nontender, no guarding, no rigidity Patient is awake, alert and oriented to self, place, time and person ; no focal motor deficit Psych: Normal mood Left elbow contusion with tenderness but range of motion complete; ecchymosis to right forearm ; upper lumbar spinal tenderness Results Labs 10/05/24 21:22 10/05/24 21:22 Labs: Laboratory Results - last 24 hr 10/05/24 10/05/24 10/05/24 21:14 21:15 21:22 MCV 94.4 MCH 30.6 MCHC 32.4 RDW 15.0 Plt Count 151 L MPV 10.7 Immature Gran % (Auto) 0.5 H Neut % (Auto) 72.0 Lymph % (Auto) 7.4 L [place] % (Auto) 19.8 H Eos % (Auto) 0.0 Baso % (Auto) 0.3 Lymph # (Auto) 0.5 L [place] # (Auto) 1.2 Eos # (Auto) 0.0 Baso # (Auto) 0.0 Abs Immat Gran (auto) 0.03 Absolute Neuts (auto) 4.5 Absolute Nucleated RBC 0.000 Nucleated RBC % (auto) 0.0 PT 18.4 H INR 1.6 H Anion Gap 16 Estim Creat Clear Calc 26.6 Estimated GFR 29 Random Glucose 67 Calcium 8.7 Magnesium 2.4 Total Bilirubin 0.7 Direct Bilirubin 0.3 AST 42 H ALT 10 Alkaline Phosphatase 22 L Total Creatine Kinase 1035 H Total Protein 6.7 Albumin 3.7 Influenza Type A (PCR) POSITIVE A Influenza Type B (PCR) NEGATIVE RSV RNA Qual (PCR) NEGATIVE SARS-CoV-2 RNA (RT-PCR) NEGATIVE Assessment and Plan (1) Hypoxia: Status: Acute (2) Influenza: Status: Acute Plan This is a 84-year-old male with pertinent history of congestive heart failure, unspecified EF, atrial fibrillation on dabigatran and status post pacemaker, chronic kidney disease, CAD status post CABG who was brought to the emergency department for evaluation after a fall. #. Acute hypoxemic respiratory failure due to Influenza A infection: Will admit patient with supplemental oxygen, wean as tolerated. Initiated oseltamivir. No bacterial superinfection, defer antibiotics #. Generalized weakness in the setting of above leading to mechanical fall: P.r.n. opioids for analgesia. Physical therapy to evaluate and treat #. L1 compression fracture due to fall: Physical therapy as above #. Elevated troponin, type 2 in the setting of hypoxia #. Chronic kidney disease, unknown stage: Unclear baseline. Patient resuscitated with IV crystalloids in the ER. Monitor creatinine and urine output. #. Congestive heart failure, unspecified EF: Resume home medications once med rec is complete #. Atrial fibrillation / CAD status post CABG: Continue anticoagulation, statin and beta-cecilia Med rec pending DVT prophylaxis: Dabigatran DNR/DNI. Discussed with patient at bedside Admit as inpatient and will require two night minimum hospital stay for supplemental oxygen (as above), which is not possible in a lesser acute setting. Quality Stroke Does the patient have a stroke diagnosis?: No VTE Prior VTE?: No VTE Risk Level:: Medical - moderate - high VTE Device Contraindication: N/A - Device Ordered VTE Drug Contraindication: Treatment Not Indicated
[2024-10-06 01:52] LABS: Appearance Urine Cloudy; Color Urine Yellow; Glucose Urine UA 100 mg/dL (Negative); Leukocyte Esterase Urine Negative (Negative); Nitrite Urine Negative (Negative); PH 5.5 (5.0-9.0); UMIC TRIGGER UACC YES; Urine Blood Trace (Negative); Urine Ketones Trace mg/dL (Negative); Urine Protein 30 (1+) mg/dL (Neg-Trace)
[2024-10-06 02:02] LABS: Bacteria Urine None Seen (None Seen); Granular Casts Urine Present; Hyaline Casts Urine >20 /LPF (0-2); RBC Urine 0-2 /HPF (0-2); Squamous Epithelial Cell Urine 0-2 /HPF (0-2); WBC Urine 0-5 /HPF (0-5)
[2024-10-06] MEDS: oxyCODONE HCl Immed Release 5 MG TABLET PO ×4 (03:34→19:19)
[2024-10-06] MEDS: Melatonin 3 MG TABLET 6 MG PO (03:34)
[2024-10-06 06:36] LABS: Hematocrit 40.4 % (42.0-52.0); Hemoglobin 12.9 g/dl (14.0-18.0); Mean Corpuscular HGB Conc 31.9 g/dl (31.0-36.0); Mean Corpuscular Hemoglobin 30.7 pg (27.0-33.0); Mean Corpuscular Volume 96.2 fL (80.0-98.0); Mean Platelet Volume 10.6 fL (9.4-12.4); Platelet Count 129 X10*3/uL (160-400); Red Cell Distribution Width 14.8 % (11.0-16.0); White Blood Count 5.3 X10*3/uL (4.8-10.8)
[2024-10-06 06:46] LABS: Anion Gap 16 (12-20); Blood Urea Nitrogen 49 mg/dL (9-16); Carbon Dioxide 24 mmol/L (22-29); Chloride 107 mmol/L (96-108); Creatinine Clr Calc Pharmacy 32.2; Estimated Glomerular Filt Rate 35; Glucose Random 81 mg/dL (60-115); Potassium 3.7 mmol/L (3.3-5.1); Sodium 143 mmol/L (135-145)
[2024-10-06] MEDS: Acetaminophen 325 MG TABLET 975 MG PO ×3 (08:03→19:20)
[2024-10-06] MEDS: 0.9 % Sodium Chloride Flush 3 ML SYRINGE IVFLUSH ×3 (08:03→19:21)
--- NOTE | 2024-10-06 08:38 | PHA.MEDREC ---
Addendum entered by Ivette Fine RPh 10/06/24 08:48: Reviewed by [facility] Original Note: Pharmacy Consult ? Medication Reconciliation Pharmacy has reviewed the medication reconciliation done by nursing. Spoke to patient to confirm med list. Patient was able to confirm all of his medications. Add Eplerenone 25 mg to med rec.
[2024-10-06] MEDS: Cyclobenzaprine HCl 5 MG TABLET 2.5 MG PO ×3 (09:14→19:18)
[2024-10-06] MEDS: Lidocaine 4 % Patch ADH..PATCH 1 PATCH TRANSDERMA (09:15)
[2024-10-06] MEDS: Cinacalcet HCl 30 MG TABLET PO (09:15)
[2024-10-06] MEDS: Empagliflozin 10 MG TABLET PO (09:15)
[2024-10-06] MEDS: Torsemide 20 MG TABLET 40 MG PO (09:15)
[2024-10-06] MEDS: Metoprolol Succinate ER 50 MG TAB.ER.24H PO (09:15)
[2024-10-06] MEDS: Dabigatran Etexilate Mesylate 150 MG CAPSULE PO (09:15)
--- NOTE | 2024-10-06 10:32 | HO.PM.IMPN ---
Subjective Subjective Date of Service: 10/06/24 Interval History: Acute hypoxemic respiratory failure due to Influenza A infection Review of Systems sob seems similar cough somewhat improving generlaised weak has back pain Physical Exam Vital Signs: Vital Signs: Last Vital Signs Temp 96.9 F 10/06/24 07:21 Pulse 85 10/06/24 07:21 Resp 18 10/06/24 07:21 BP 97/63 10/06/24 07:21 Pulse Ox 94 10/06/24 07:21 O2 Del Method Nasal Cannula 10/06/24 07:21 O2 Flow Rate 3 10/06/24 07:21 BMI result Body Mass Index 31.6 Appearance: Alert.? Oriented X3. cvs: rrr, [id number]. res: air entry somewhat dimnished at bases -may be also poor efforts (by patient ). abd: no rebound or guarding ,nt, bs present. ext pulses present , no cyanosis. neuro: axo3 , nonfocal. skin and back exma: same as h&P. Objective Data Active Medications Acetaminophen (Acetaminophen 325 Mg Tablet) 975 mg PO Q6H [facility] Last Admin: 10/06/24 08:03 Dose: 975 mg Documented By: MILTON Atorvastatin Calcium (Atorvastatin Calcium 10 Mg Tablet) 10 mg PO BEDTIME [facility] Calcium Carbonate (Calcium Carbonate 750 Mg Tab.Chew) 750 mg PO Q4H PRN PRN Reason: Heartburn Cinacalcet (Cinacalcet Hcl 30 Mg Tablet) 30 mg PO DAILY [facility] Last Admin: 10/06/24 09:15 Dose: 30 mg Documented By: MILTON Cyclobenzaprine HCl (Cyclobenzaprine Hcl 5 Mg Tablet) 2.5 mg PO TID [facility] Last Admin: 10/06/24 09:14 Dose: 2.5 mg Documented By: MILTON Dabigatran (Dabigatran Etexilate Mesylate 150 Mg Capsule) 150 mg PO DAILY [facility] Last Admin: 10/06/24 09:15 Dose: 150 mg Documented By: MILTON Empagliflozin (Empagliflozin 10 Mg Tablet) 10 mg PO DAILY [facility] Last Admin: 10/06/24 09:15 Dose: 10 mg Documented By: MILTON Lidocaine (Lidocaine 4 % Patch Adh..Patch) 1 patch TRANSDERMA DAILY [facility]; Protocol Last Admin: 10/06/24 09:15 Dose: 1 patch Documented By: MILTON Magnesium Hydroxide (Milk Of Magnesia 30 Ml Oral.Susp) 30 ml PO DAILY PRN PRN Reason: Constipation Melatonin (Melatonin 3 Mg Tablet) 6 mg PO BEDTIME PRN PRN Reason: Insomnia Last Admin: 10/06/24 03:34 Dose: 6 mg Documented By: PRECIOUS Metoprolol Succinate (Metoprolol Succinate Er 50 Mg Tab.Er.24h) 50 mg PO DAILY [facility]; Protocol Last Admin: 10/06/24 09:15 Dose: 50 mg Documented By: MILTON Ondansetron HCl (Ondansetron Hcl 4 Mg/2 Ml Vial) 4 mg IVPUSH Q8H PRN PRN Reason: Nausea and Vomiting Oseltamivir Phosphate (Oseltamivir Phosphate 30 Mg Capsule) 30 mg PO Q24H [facility] Stop: 10/10/24 19:31 Oxycodone HCl (Oxycodone Hcl Immed Release 5 Mg Tablet) 5 mg PO Q4H PRN PRN Reason: Pain, Severe (Pain Scale 7-10) Last Admin: 10/06/24 08:03 Dose: 5 mg Documented By: MILTON Sodium Chloride (0.9 % Sodium Chloride Flush 3 Ml Syringe) 3 ml IVFLUSH QSHIFT [facility] Last Admin: 10/06/24 08:03 Dose: 3 ml Documented By: MILTON Torsemide (Torsemide 20 Mg Tablet) 40 mg PO DAILY@0800 [facility]; Protocol Last Admin: 10/06/24 09:15 Dose: 40 mg Documented By: MILTON Labs 10/06/24 06:13 10/06/24 06:13 Labs: Laboratory Results - last 24 hr 10/05/24 10/05/24 10/05/24 21:14 21:15 21:22 MCV 94.4 MCH 30.6 MCHC 32.4 RDW 15.0 Plt Count 151 L MPV 10.7 Immature Gran % (Auto) 0.5 H Neut % (Auto) 72.0 Lymph % (Auto) 7.4 L [place] % (Auto) 19.8 H Eos % (Auto) 0.0 Baso % (Auto) 0.3 Lymph # (Auto) 0.5 L [place] # (Auto) 1.2 Eos # (Auto) 0.0 Baso # (Auto) 0.0 Abs Immat Gran (auto) 0.03 Absolute Neuts (auto) 4.5 Absolute Nucleated RBC 0.000 Nucleated RBC % (auto) 0.0 PT 18.4 H INR 1.6 H Anion Gap 16 Estim Creat Clear Calc 26.6 Estimated GFR 29 Random Glucose 67 Calcium 8.7 Magnesium 2.4 Total Bilirubin 0.7 Direct Bilirubin 0.3 AST 42 H ALT 10 Alkaline Phosphatase 22 L Total Creatine Kinase 1035 H Total Protein 6.7 Albumin 3.7 Urine Color Urine Appearance Urine pH Ur Specific [place] Urine Protein Urine Glucose (UA) Urine Ketones Urine Blood Urine Nitrite Ur Leukocyte Esterase Urine RBC Urine WBC Ur Squamous Epith Cells Urine Bacteria Hyaline Casts Granular Casts Influenza Type A (PCR) POSITIVE A Influenza Type B (PCR) NEGATIVE RSV RNA Qual (PCR) NEGATIVE SARS-CoV-2 RNA (RT-PCR) NEGATIVE 10/06/24 10/06/24 01:46 06:13 MCV 96.2 MCH 30.7 MCHC 31.9 RDW 14.8 Plt Count 129 L MPV 10.6 Immature Gran % (Auto) Neut % (Auto) Lymph % (Auto) [place] % (Auto) Eos % (Auto) Baso % (Auto) Lymph # (Auto) [place] # (Auto) Eos # (Auto) Baso # (Auto) Abs Immat Gran (auto) Absolute Neuts (auto) Absolute Nucleated RBC 0.000 Nucleated RBC % (auto) 0.0 PT INR Anion Gap 16 Estim Creat Clear Calc 32.2 Estimated GFR 35 Random Glucose 81 Calcium 8.0 L D Magnesium Total Bilirubin Direct Bilirubin AST ALT Alkaline Phosphatase Total Creatine Kinase 1134 H Total Protein Albumin Urine Color Yellow Urine Appearance Cloudy Urine pH 5.5 Ur Specific [place] 1.020 Urine Protein 30 (1+) H Urine Glucose (UA) 100 H Urine Ketones Trace Urine Blood Trace H Urine Nitrite Negative Ur Leukocyte Esterase Negative Urine RBC 0-2 Urine WBC 0-5 Ur Squamous Epith Cells 0-2 Urine Bacteria None Seen Hyaline Casts >20 Granular Casts Present Influenza Type A (PCR) Influenza Type B (PCR) RSV RNA Qual (PCR) SARS-CoV-2 RNA (RT-PCR) Assessment and Plan (1) Hypoxia: Status: Acute (2) Influenza: Status: Acute Assessment and Plan: 84-year-old male with pertinent history of congestive heart failure, unspecified EF, atrial fibrillation on dabigatran and status post pacemaker, chronic kidney disease, CAD status post CABG who was brought to the emergency department for evaluation after a fall. Acute hypoxemic respiratory failure due to Influenza A infection: continue tamiflu,taper oxygen incentive spirometry and chest physiotherapy ,oob Generalized weakness in the setting of above leading to mechanical fall: P.r.n. opioids for analgesia. Physical therapy to evaluate and treat L1 compression fracture due to fall: pain control/ Physical therapy as above. Chronic kidney disease, unknown stage: Unclear baseline. Patient resuscitated with IV crystalloids in the ER. creatinine improving from 2.19 to 1.87 Congestive heart failure, unspecified EF: (he got torcemide ) hold diuretics for now -will moniter bmp closely. Atrial fibrillation / CAD status post CABG: Continue anticoagulation, statin and beta-cecilia. dvt prophylax:on ac /pradaxa. ongoing need to stay:cute hypoxemic respiratory failure due to Influenza A infection-needs oxygen tapering ,pt eval, close monitering of repiratory status . Quality Stroke Does the patient have a stroke diagnosis?: No VTE Prior VTE?: No VTE Risk Level:: Medical - moderate - high VTE Device Contraindication: N/A - Device Ordered VTE Drug Contraindication: Treatment Not Indicated
--- NOTE | 2024-10-06 14:55 | MHC.CM.PN ---
CM assessment completed w/ daughter/HCP Aminta, patient sleeping. Patient comes from [facility] in [facility]. Independent w/ care. Denies use of DME or services. PCP Trudy Quevedo MD in [facility] Aminta reports she is HCP and will bring in a copy. DP: Goal is STR, PT eval pending. Aminta will call back with facility preferences. CM will continue to follow.
[2024-10-06] MEDS: Atorvastatin Calcium 10 MG TABLET PO (19:19)
[2024-10-06] MEDS: Oseltamivir Phosphate 30 MG CAPSULE PO (19:19)
[2024-10-06 20:27] LABS: B Type Natriuretic Peptide 274 pg/mL (<100)
--- NOTE | 2024-10-06 21:53 | PM.EVENT ---
Event Note Date of Service: 10/06/24 Event Note: Patient with dyspnea and tachypnea. Bilateral crackles on examination. Does have underlying CHF. Obtained chest x-ray which showed pulmonary edema and pleural effusion. BNP elevated. Will order IV diuresis Time Spent With Patient Time: Total time managing care of this patient today ____ minutes.
[2024-10-06] MEDS: Bumetanide 1 MG/4 ML VIAL 2 MG IVPUSH (22:05)
--- NOTE | 2024-10-06 22:14 | PC.NURSE ---
Upon initial assessment noticed patient breathing more labored, crackly lungs, O2 saturation 90-91 percent on 3 liters NC. Home Torsemide on hold, no recent BNP. Dr Hicks made aware. Stat BNP and chest x-ray ordered. BNP elevated 274. Changes in chest x-ray results comparing to one from ED from yesterday. Bumex 2 mg IV x one dose ordered and administered. Will cont to monitor.
[2024-10-07] MEDS: Acetaminophen 325 MG TABLET 975 MG PO ×3 (06:12→20:25)
[2024-10-07] MEDS: Cyclobenzaprine HCl 5 MG TABLET 2.5 MG PO ×3 (06:50→20:23)
[2024-10-07] MEDS: oxyCODONE HCl Immed Release 5 MG TABLET PO ×4 (06:50→18:41)
[2024-10-07] MEDS: 0.9 % Sodium Chloride Flush 3 ML SYRINGE IVFLUSH ×2 (06:53→20:34)
[2024-10-07 07:51] VITALS: BP 101/55; PULSE 90; RESP 18; TEMP 36.9
[2024-10-07] MEDS: Lidocaine 4 % Patch ADH..PATCH 1 PATCH TRANSDERMA (08:28)
[2024-10-07] MEDS: Cinacalcet HCl 30 MG TABLET PO (08:28)
[2024-10-07] MEDS: Metoprolol Succinate ER 50 MG TAB.ER.24H PO (08:28)
[2024-10-07] MEDS: Dabigatran Etexilate Mesylate 150 MG CAPSULE PO (08:28)
[2024-10-07] MEDS: Empagliflozin 10 MG TABLET PO (08:28)
--- NOTE | 2024-10-07 08:38 | P.PNIM_ITS ---
Subjective Subjective Date of Service: 10/07/24 Interval History: f/u on influenza with acute hypoxic respiratory failure was given IV Lasix overnight for increaseing sob, and supsected pulmonary edema on xray feels better this morning but still on oxygen at 3 liters and sating around 93% Physical Exam 2 Vital Signs: Vital Signs: Last Vital Signs Temp 98.5 F 10/07/24 07:51 Pulse 90 10/07/24 07:51 Resp 18 10/07/24 07:51 BP 101/55 L 10/07/24 07:51 Pulse Ox 92 10/06/24 23:57 O2 Del Method Nasal Cannula 10/06/24 23:57 O2 Flow Rate 3 10/06/24 23:57 BMI result Body Mass Index 31.6 Const: Other: General: AO X 3, no acute distress Resp: CTA bilateral, normal effort CVS: S1,S2,RRR GI: +BS, NT, no distention Skin: No rash Neuro: motor grossly intact Psych: appropriate affect Objective Data Active Medications Acetaminophen (Acetaminophen 325 Mg Tablet) 975 mg PO Q6H [facility] Last Admin: 10/07/24 06:12 Dose: 975 mg Documented By: PRECIOUS Atorvastatin Calcium (Atorvastatin Calcium 10 Mg Tablet) 10 mg PO BEDTIME [facility] Last Admin: 10/06/24 19:19 Dose: 10 mg Documented By: PRECIOUS Calcium Carbonate (Calcium Carbonate 750 Mg Tab.Chew) 750 mg PO Q4H PRN PRN Reason: Heartburn Cinacalcet (Cinacalcet Hcl 30 Mg Tablet) 30 mg PO DAILY [facility] Last Admin: 10/07/24 08:28 Dose: 30 mg Documented By: EDILIA Cyclobenzaprine HCl (Cyclobenzaprine Hcl 5 Mg Tablet) 2.5 mg PO TID [facility] Last Admin: 10/07/24 06:50 Dose: 2.5 mg Documented By: EDILIA Dabigatran (Dabigatran Etexilate Mesylate 150 Mg Capsule) 150 mg PO DAILY [facility] Last Admin: 10/07/24 08:28 Dose: 150 mg Documented By: EDILIA Empagliflozin (Empagliflozin 10 Mg Tablet) 10 mg PO DAILY [facility] Last Admin: 10/07/24 08:28 Dose: 10 mg Documented By: EDILIA Lidocaine (Lidocaine 4 % Patch Adh..Patch) 1 patch TRANSDERMA DAILY [facility]; Protocol Last Admin: 10/07/24 08:28 Dose: 1 patch Documented By: EDILIA Magnesium Hydroxide (Milk Of Magnesia 30 Ml Oral.Susp) 30 ml PO DAILY PRN PRN Reason: Constipation Melatonin (Melatonin 3 Mg Tablet) 6 mg PO BEDTIME PRN PRN Reason: Insomnia Last Admin: 10/06/24 03:34 Dose: 6 mg Documented By: PRECIOUS Metoprolol Succinate (Metoprolol Succinate Er 50 Mg Tab.Er.24h) 50 mg PO DAILY [facility]; Protocol Last Admin: 10/07/24 08:28 Dose: 50 mg Documented By: EDILIA Ondansetron HCl (Ondansetron Hcl 4 Mg/2 Ml Vial) 4 mg IVPUSH Q8H PRN PRN Reason: Nausea and Vomiting Oseltamivir Phosphate (Oseltamivir Phosphate 30 Mg Capsule) 30 mg PO Q24H [facility] Stop: 10/10/24 19:31 Last Admin: 10/06/24 19:19 Dose: 30 mg Documented By: PRECIOUS Oxycodone HCl (Oxycodone Hcl Immed Release 5 Mg Tablet) 5 mg PO Q4H PRN PRN Reason: Pain, Severe (Pain Scale 7-10) Last Admin: 10/07/24 06:50 Dose: 5 mg Documented By: EDILIA Sodium Chloride (0.9 % Sodium Chloride Flush 3 Ml Syringe) [facility] Last Admin: 10/07/24 06:53 Dose: 3 ml Documented By: EDILIA Torsemide (Torsemide 20 Mg Tablet) 40 mg PO DAILY@0800 [facility]; Protocol Last Admin: 10/06/24 09:15 Dose: 40 mg Documented By: MILTON Labs 10/06/24 06:13 10/06/24 06:13 Labs: Laboratory Results - last 24 hr 10/06/24 20:01 B-Natriuretic Peptide 274 H Assessment and Plan (1) Hypoxia: Status: Acute (2) Influenza: Status: Acute Assessment and Plan: 84/m with unspecified CHF, AFIB on on dabigatran and status post pacemaker, CKD, CAD status post CABG who was brought to the emergency department for evaluation after a fall and foud to have acute hypoxic resp failure d/t influenza Acute hypoxemic respiratory failure due to Influenza A infection, persistent hypoxic continue tamiflu, wean off O2 incentive spirometry and chest physiotherapy , OOB CHF, unspecfieid, received IV Lasix overnight get an echo continue Torsemide Generalized weakness in the setting of above leading to mechanical fall: P.r.n. opioids for analgesia. Physical therapy to evaluate and treat L1 compression fracture due to fall: pain control/ Physical therapy as above. Chronic kidney disease, unknown stage: Unclear baseline. hold ivf creatinine improving from 2.19 to 1.87 Atrial fibrillation / CAD status post CABG: Continue anticoagulation, statin and beta-cecilia. dvt prophylax:on ac /pradaxa. ongoing need to stay:cute hypoxemic respiratory failure due to Influenza A infection-needs oxygen tapering ,pt eval, close monitering of repiratory status . Quality Stroke Does the patient have a stroke diagnosis?: No VTE Prior VTE?: No VTE Risk Level:: Medical - moderate - high VTE Device Contraindication: N/A - Device Ordered VTE Drug Contraindication: Treatment Not Indicated
[2024-10-07 14:33] VITALS: BP 101/55; PULSE 90
--- NOTE | 2024-10-07 15:14 | MHC.CM.PN ---
PT rec STR. CM discussed with patient and daughter, Aminta. Preference is home w/ [facility] for SN/PT. Per Aminta, they can also get additional assistance from [employer] at [facility]. [facility]. Patient currently on O2, not on home O2. CM will continue to follow.
[2024-10-07 15:35] VITALS: BP 102/67; PULSE 99; RESP 18; TEMP 36.6; O2SAT 92
[2024-10-07] MEDS: Oseltamivir Phosphate 30 MG CAPSULE PO (18:41)
[2024-10-07 19:13] VITALS: BP 106/59; PULSE 99; RESP 18; TEMP 36.2; O2SAT 92
[2024-10-07] MEDS: Atorvastatin Calcium 10 MG TABLET PO (20:22)
[2024-10-07 23:59] VITALS: BP 100/53; PULSE 94; RESP 18; TEMP 36.9; O2SAT 92
--- NOTE | 2024-10-08 07:00 | CA_ITS ---
Transthoracic Echocardiogram Patient (Last, First, Middle): Danny Michele, Gender: Male Date of : 1940 Age: 84 Procedure Date: 10/08/2024 Procedure Type: Transthoracic Echocardiogram Location: S3E Height: 170.18 cm Weight: 91.17 kg BSA: 2.03 m2 Heart Rate: bpm BP: 101 / 55 mmHg Dental Treatment Coordinator: BRE Referring MD: Michael Vidal MD Symptoms: chf NOS Study Quality: Adequate w contrast ECG Rhythm: Undetermined Conclusions: - LVEF difficult to assess, possibly mildly reduced. - Right ventricle not well visualized but appears dilated with reduced systolic function. - The right atrium is severely dilated. - No obvious valvular pathology seen on this study. - The inferior vena cava is dilated and collapses less than 50% with inspiration. Findings Procedure Information Contrast agent, definity, is being given per protocol without apparent complications. Left Ventricle Normal left ventricular cavity size. The left ventricular systolic function is normal. There is paradoxical septal motion consistent with post-operative status. Diastolic function is indeterminate on the basis of available data. There is mild septal asymmetric hypertrophy. LVEF difficult to assess, possibly mildly reduced. Right Ventricle Right ventricle not well visualized but appears dilated with reduced systolic function. Atria The left atrium is normal in size. The right atrium is severely dilated. Aortic Valve There is a normal trileaflet aortic valve. There is no aortic valve stenosis. There is no aortic valve regurgitation. Mitral Valve The mitral valve appears normal. There is mild mitral valve regurgitation. There is no mitral valve stenosis. Pulmonic Valve The pulmonic valve is likely normal. Tricuspid Valve There is mild tricuspid valve regurgitation. There is no evidence of pulmonary hypertension. Great Vessels The asc aorta is normal in size. Venous The inferior vena cava is dilated and collapses less than 50% with inspiration. There is evidence of a dilated coronary sinus. Pericardium/Pleural Small pericardial effusion but visible only in one view. Prior Study Comparison No prior study available for comparison. Recommendations, Care & Conclusions No obvious valvular pathology seen on this study. Measurements 2D Linear Measurements IVSd: 1.27 0.6-0.9/0.6-1.0 cm LVIDd: 4.35 3.9-5.3/4.2-5.9 cm LVIDd Index: 2.14 2.4-3.2/2.2-3.1 cm/m2 LVIDs: 3.98 2.0-3.6 cm LVPWd: 0.95 0.7-1.1 cm LA Diam: 4.20 2.7-3.8/3.0-4.0 cm LAIDs Index: 2.07 1.5-2.3 cm/m2 LV Mass: 208.66 67-162/88-224 g LV Mass Index: 102.79 43-95/49-115 g/m2 LVOT Diam: 2.30 3.0+(-)1.3 cm 2D Systolic Function EF 4C: 49.90 >55% EF 2C: 59.60 >55% EF BiP: 53.50 >55% Aortic Valve AoV Pk Eliceo: 1.17 AoV Pk Grad: 5.00 JOSH: 2.57 LVOT LVOT Pk Eliceo: 0.72 LVOT Mn Eliceo: 0.55 LVOT VTI: 0.12 LVOT Pk Grad: 2.00 LVOT Mn Grad: 1.00 LVOT Diam: 2.30 LVOT Area: 4.15 Right Ventricle TAPSE (mm): 13.50 TVS' Eliceo: 8.49 Tricuspid Valve TR Pk Eliceo: 2.10 TR Pk Grad: 18.00 RA Press: 15.00 RVSP: 33.00 Great Vessels Aorta Sinus of Valsalva: 3.60 2.0-3.5 cm Ao Asc: 3.90 2.1-3.4 cm Pulmonary Valve PV Pk Eliceo: 1.01 Peak PV Grad: 4.00 Updated in Other Vendor System with Status of Final Gabriel Trivedi MD electronically signed on 10/08/2024 4:35:55 PM with status of Final
[2024-10-08 07:44] VITALS: BP 125/58; PULSE 102; RESP 20; TEMP 36.7; O2SAT 91
[2024-10-08] MEDS: Lidocaine 4 % Patch ADH..PATCH 1 PATCH TRANSDERMA (07:54)
[2024-10-08] MEDS: Metoprolol Succinate ER 50 MG TAB.ER.24H PO (07:55)
[2024-10-08] MEDS: 0.9 % Sodium Chloride Flush 3 ML SYRINGE IVFLUSH ×3 (07:55→20:05)
[2024-10-08] MEDS: Empagliflozin 10 MG TABLET PO (07:56)
[2024-10-08] MEDS: Cinacalcet HCl 30 MG TABLET PO (07:56)
[2024-10-08] MEDS: Acetaminophen 325 MG TABLET 975 MG PO ×3 (07:56→20:04)
[2024-10-08] MEDS: Dabigatran Etexilate Mesylate 150 MG CAPSULE PO (07:56)
[2024-10-08] MEDS: Cyclobenzaprine HCl 5 MG TABLET 2.5 MG PO ×3 (07:57→20:05)
--- NOTE | 2024-10-08 09:28 | P.PNIM_ITS ---
Subjective Subjective Date of Service: 10/08/24 Interval History: f/u on influenza with acute hypoxic respiratory failure. He remains hypoxic with O2 requirement at 4 liters Physical Exam 2 Vital Signs: Vital Signs: Last Vital Signs Temp 98.1 F 10/08/24 07:44 Pulse 102 H 10/08/24 07:44 Resp 20 10/08/24 07:44 BP 125/58 L 10/08/24 07:44 Pulse Ox 91 L 10/08/24 07:44 O2 Del Method Nasal Cannula 10/08/24 07:44 O2 Flow Rate 4 10/08/24 07:44 BMI result Body Mass Index 31.6 Objective Data Active Medications Acetaminophen (Acetaminophen 325 Mg Tablet) 975 mg PO Q6H [facility] Last Admin: 10/08/24 07:56 Dose: 975 mg Documented By: KIERSTEN Atorvastatin Calcium (Atorvastatin Calcium 10 Mg Tablet) 10 mg PO BEDTIME [facility] Last Admin: 10/07/24 20:22 Dose: 10 mg Documented By: BROOK Calcium Carbonate (Calcium Carbonate 750 Mg Tab.Chew) 750 mg PO Q4H PRN PRN Reason: Heartburn Cinacalcet (Cinacalcet Hcl 30 Mg Tablet) 30 mg PO DAILY [facility] Last Admin: 10/08/24 07:56 Dose: 30 mg Documented By: KIERSTEN Cyclobenzaprine HCl (Cyclobenzaprine Hcl 5 Mg Tablet) 2.5 mg PO TID [facility] Last Admin: 10/08/24 07:57 Dose: 2.5 mg Documented By: KIERSTEN Dabigatran (Dabigatran Etexilate Mesylate 150 Mg Capsule) 150 mg PO DAILY [facility] Last Admin: 10/08/24 07:56 Dose: 150 mg Documented By: KIERSTEN Empagliflozin (Empagliflozin 10 Mg Tablet) 10 mg PO DAILY [facility] Last Admin: 10/08/24 07:56 Dose: 10 mg Documented By: KIERSTEN Lidocaine (Lidocaine 4 % Patch Adh..Patch) 1 patch TRANSDERMA DAILY [facility]; Protocol Last Admin: 10/08/24 07:54 Dose: 1 patch Documented By: KIERSTEN Magnesium Hydroxide (Milk Of Magnesia 30 Ml Oral.Susp) 30 ml PO DAILY PRN PRN Reason: Constipation Melatonin (Melatonin 3 Mg Tablet) 6 mg PO BEDTIME PRN PRN Reason: Insomnia Last Admin: 10/06/24 03:34 Dose: 6 mg Documented By: PRECIOUS Metoprolol Succinate (Metoprolol Succinate Er 50 Mg Tab.Er.24h) 50 mg PO DAILY [facility]; Protocol Last Admin: 10/08/24 07:55 Dose: 50 mg Documented By: KIERSTEN Ondansetron HCl (Ondansetron Hcl 4 Mg/2 Ml Vial) 4 mg IVPUSH Q8H PRN PRN Reason: Nausea and Vomiting Oseltamivir Phosphate (Oseltamivir Phosphate 30 Mg Capsule) 30 mg PO Q24H [facility] Stop: 10/10/24 19:31 Last Admin: 10/07/24 18:41 Dose: 30 mg Documented By: EDILIA Oxycodone HCl (Oxycodone Hcl Immed Release 5 Mg Tablet) 5 mg PO Q4H PRN PRN Reason: Pain, Severe (Pain Scale 7-10) Last Admin: 10/07/24 18:41 Dose: 5 mg Documented By: EDILIA Sodium Chloride (0.9 % Sodium Chloride Flush 3 Ml Syringe) 3 ml IVFLUSH QSHIFT [facility] Last Admin: 10/08/24 07:55 Dose: 3 ml Documented By: KIERSTEN Torsemide (Torsemide 20 Mg Tablet) 40 mg PO DAILY@0800 [facility]; Protocol Last Admin: 10/06/24 09:15 Dose: 40 mg Documented By: LANNYONOH Labs 10/06/24 06:13 10/06/24 06:13 Assessment and Plan (1) Hypoxia: Status: Acute (2) Influenza: Status: Acute Plan 84/m with unspecified CHF, AFIB on on dabigatran and status post pacemaker, CKD, CAD status post CABG who was brought to the emergency department for evaluation after a fall and foud to have acute hypoxic resp failure d/t influenza Acute hypoxemic respiratory failure due to Influenza A infection, persistent hypoxic continue tamiflu, wean off O2 incentive spirometry and chest physiotherapy , OOB CHF, unspecfieid, received IV Lasix overnight Echo today continue Torsemide Generalized weakness in the setting of above leading to mechanical fall: P.r.n. opioids for analgesia. Physical therapy to evaluate and treat L1 compression fracture due to fall: pain control/ Physical therapy as above. Chronic kidney disease, unknown stage: Unclear baseline. hold ivf creatinine improving from 2.19 to 1.87, recheck today Atrial fibrillation / CAD status post CABG: Continue anticoagulation, statin and beta-cecilia. dvt prophylax:on ac /pradaxa. ongoing need to stay:cute hypoxemic respiratory failure due to Influenza A infection-needs oxygen tapering ,pt eval, close monitering of repiratory status PT eval before dischare Quality Stroke Does the patient have a stroke diagnosis?: No VTE Prior VTE?: No VTE Risk Level:: Medical - moderate - high VTE Device Contraindication: N/A - Device Ordered VTE Drug Contraindication: Treatment Not Indicated
[2024-10-08 10:22] VITALS: BP 113/59
[2024-10-08] MEDS: Torsemide 20 MG TABLET 40 MG PO (10:22)
[2024-10-08 10:38] LABS: Anion Gap 15 (12-20); Blood Urea Nitrogen 48 mg/dL (9-16); Calcium 8.4 mg/dL (8.4-10.2); Carbon Dioxide 27 mmol/L (22-29); Chloride 104 mmol/L (96-108); Creatinine Clr Calc Pharmacy 33.5; Estimated Glomerular Filt Rate 36; Glucose Random 123 mg/dL (60-115); Potassium 3.8 mmol/L (3.3-5.1); Sodium 142 mmol/L (135-145)
--- NOTE | 2024-10-08 10:40 | MHC.CM.PN ---
Addendum entered by Amisha Childers RN 10/08/24 14:34: CM met with patient and daughter, Aminta, at bedside. Aminta requesting referrals to [facility]. Preferences 1) [facility] 2) [facility]. Patient maintains he prefers home w/ services, but is agreeable to referrals in case he changes his mind. Currently on 4L O2. Original Note: Rec'd call from nathen Payan/ [facility]. They do not use [facility] but are able to accept the patient. H&P faxed per request. Will need dc summary and f2f faxed on dc. Ora-
--- NOTE | 2024-10-08 12:29 | HO.WOUND ---
Addendum entered by Jasmyne Hernandez RN 10/08/24 12:33: Right Arm Left Knee Right Knee Left Forehead Original Note: Wound Consult: Initial 84yr old?male admitted to [facility] on 10/06/24 - See progress notes and H&P for detailed history.? Wound consult placed for abrasions s/p fall prior to admission.? Patient agreeable to assessment and photo documentation.? Forehead bilateral knees and Bilateral elbows noted for dry stable scabs in place. No active oozing, no drainage noted. Recommend remain open to air as long as scabs continue to remain stable. May consider applying Vaseline to forehead wound to allow for moist wound healing. Bilateral arms with significant bruising, swelling and stable scabs. Provider aware. No topical interventions needed at this time as scabbed are intact dry and remain stable. Forehead - Gently cleanse with ns moist gauze. Apply Vaseline twice daily and PRN, may leave open to air. Re-consult wound care Nurse for wound deterioration or wound changes.
[2024-10-08 15:36] VITALS: BP 108/66; PULSE 78; RESP 18; TEMP 36.4; O2SAT 94
[2024-10-08] MEDS: Oseltamivir Phosphate 30 MG CAPSULE PO (20:04)
[2024-10-08] MEDS: Atorvastatin Calcium 10 MG TABLET PO (20:05)
[2024-10-08 23:31] VITALS: BP 97/63; PULSE 97; RESP 18; TEMP 36.2; O2SAT 91
[2024-10-09 07:19] VITALS: BP 110/58; PULSE 89; RESP 17; TEMP 37.1; O2SAT 92
[2024-10-09] MEDS: Acetaminophen 325 MG TABLET 975 MG PO ×3 (07:56→19:59)
[2024-10-09] MEDS: Cinacalcet HCl 30 MG TABLET PO (07:57)
[2024-10-09] MEDS: Empagliflozin 10 MG TABLET PO (07:57)
[2024-10-09] MEDS: Torsemide 20 MG TABLET 40 MG PO (07:57)
[2024-10-09] MEDS: Cyclobenzaprine HCl 5 MG TABLET 2.5 MG PO ×3 (07:57→19:58)
[2024-10-09] MEDS: Metoprolol Succinate ER 50 MG TAB.ER.24H PO (07:57)
[2024-10-09] MEDS: Dabigatran Etexilate Mesylate 150 MG CAPSULE PO (07:57)
[2024-10-09] MEDS: 0.9 % Sodium Chloride Flush 3 ML SYRINGE IVFLUSH ×3 (07:58→19:59)
[2024-10-09] MEDS: Lidocaine 4 % Patch ADH..PATCH 1 PATCH TRANSDERMA (07:59)
--- NOTE | 2024-10-09 08:35 | PC.NURSE ---
Attempt to wean to 3L, patient at 89%, back up to 4L NC.
--- NOTE | 2024-10-09 09:26 | HO.PM.IMPN ---
Subjective Subjective Date of Service: 10/09/24 Interval History: f/u on influenza with acute hypoxic respiratory failure. He remains hypoxic with O2 requirement at 4 liters, diffucult to wean Physical Exam Vital Signs: Vital Signs: Last Vital Signs Temp 98.7 F 10/09/24 07:19 Pulse 89 10/09/24 07:19 Resp 17 10/09/24 07:19 BP 110/58 L 10/09/24 07:19 Pulse Ox 92 10/09/24 07:19 O2 Del Method Nasal Cannula 10/09/24 07:19 O2 Flow Rate 4 10/09/24 07:19 BMI result Body Mass Index 31.6 Const: Other: General: AO X 3, no acute distress Resp: CTA bilateral, normal effort CVS: S1,S2,RRR GI: +BS, NT, no distention Skin: No rash Neuro: motor grossly intact Psych: appropriate affect Objective Data Active Medications Acetaminophen (Acetaminophen 325 Mg Tablet) 975 mg PO Q6H [facility] Last Admin: 10/09/24 07:56 Dose: 975 mg Documented By: KIERSTEN Atorvastatin Calcium (Atorvastatin Calcium 10 Mg Tablet) 10 mg PO BEDTIME [facility] Last Admin: 10/08/24 20:05 Dose: 10 mg Documented By: BENITO Calcium Carbonate (Calcium Carbonate 750 Mg Tab.Chew) 750 mg PO Q4H PRN PRN Reason: Heartburn Cinacalcet (Cinacalcet Hcl 30 Mg Tablet) 30 mg PO DAILY [facility] Last Admin: 10/09/24 07:57 Dose: 30 mg Documented By: KIERSTEN Cyclobenzaprine HCl (Cyclobenzaprine Hcl 5 Mg Tablet) 2.5 mg PO TID [facility] Last Admin: 10/09/24 07:57 Dose: 2.5 mg Documented By: KIERSTEN Dabigatran (Dabigatran Etexilate Mesylate 150 Mg Capsule) 150 mg PO DAILY [facility] Last Admin: 10/09/24 07:57 Dose: 150 mg Documented By: KIERSTEN Empagliflozin (Empagliflozin 10 Mg Tablet) 10 mg PO DAILY [facility] Last Admin: 10/09/24 07:57 Dose: 10 mg Documented By: KIERSTEN Lidocaine (Lidocaine 4 % Patch Adh..Patch) 1 patch TRANSDERMA DAILY [facility]; Protocol Last Admin: 10/09/24 07:59 Dose: 1 patch Documented By: KIERSTEN Magnesium Hydroxide (Milk Of Magnesia 30 Ml Oral.Susp) 30 ml PO DAILY PRN PRN Reason: Constipation Melatonin (Melatonin 3 Mg Tablet) 6 mg PO BEDTIME PRN PRN Reason: Insomnia Last Admin: 10/06/24 03:34 Dose: 6 mg Documented By: PRECIOUS Metoprolol Succinate (Metoprolol Succinate Er 50 Mg Tab.Er.24h) 50 mg PO DAILY [facility]; Protocol Last Admin: 10/09/24 07:57 Dose: 50 mg Documented By: KIERSTEN Ondansetron HCl (Ondansetron Hcl 4 Mg/2 Ml Vial) 4 mg IVPUSH Q8H PRN PRN Reason: Nausea and Vomiting Oseltamivir Phosphate (Oseltamivir Phosphate 30 Mg Capsule) 30 mg PO Q24H [facility] Stop: 10/10/24 19:31 Last Admin: 10/08/24 20:04 Dose: 30 mg Documented By: BENITO Oxycodone HCl (Oxycodone Hcl Immed Release 5 Mg Tablet) 5 mg PO Q4H PRN PRN Reason: Pain, Severe (Pain Scale 7-10) Last Admin: 10/07/24 18:41 Dose: 5 mg Documented By: EDILIA Sodium Chloride (0.9 % Sodium Chloride Flush 3 Ml Sy[facility]) [facility] Last Admin: 10/09/24 07:58 Dose: 3 ml Documented By: KIERSTEN Torsemide (Torsemide 20 Mg Tablet) 40 mg PO DAILY@0800 [facility]; Protocol Last Admin: 10/09/24 07:57 Dose: 40 mg Documented By: KIERSTEN Labs 10/06/24 06:13 10/08/24 10:01 Labs: Laboratory Results - last 24 hr 10/08/24 10:01 Anion Gap 15 Estim Creat Clear Calc 33.5 Estimated GFR 36 Random Glucose 123 H Calcium 8.4 Assessment and Plan (1) Hypoxia: Status: Acute (2) Influenza: Status: Acute Plan 84/m with unspecified CHF, AFIB on on dabigatran and status post pacemaker, CKD, CAD status post CABG who was brought to the emergency department for evaluation after a fall and foud to have acute hypoxic resp failure d/t influenza Acute hypoxemic respiratory failure due to Influenza A infection, persistent hypoxic continue tamiflu, wean off O2 as harsh incentive spirometry and chest physiotherapy , OOB CHF, 10/08, difficult to assess EF Echo today continue Torsemide Generalized weakness in the setting of above leading to mechanical fall: P.r.n. opioids for analgesia. Physical therapy to evaluate and treat before dc L1 compression fracture due to fall: pain control/ Physical therapy as above. Chronic kidney disease, unknown stage: Unclear baseline. hold ivf creatinine improving from 2.19 to 1.87, recheck today Atrial fibrillation / CAD status post CABG: Continue anticoagulation, statin and beta-cecilia. dvt prophylax:on ac /pradaxa. ongoing need to stay:cute hypoxemic respiratory failure due to Influenza A infection-needs oxygen tapering ,pt eval, close monitering of repiratory status PT eval before dischare Quality Stroke Does the patient have a stroke diagnosis?: No VTE Prior VTE?: No VTE Risk Level:: Medical - moderate - high VTE Device Contraindication: N/A - Device Ordered VTE Drug Contraindication: Treatment Not Indicated
[2024-10-09 11:11] LABS: Anion Gap 16 (12-20); Blood Urea Nitrogen 43 mg/dL (9-16); Calcium 8.6 mg/dL (8.4-10.2); Carbon Dioxide 24 mmol/L (22-29); Chloride 107 mmol/L (96-108); Creatinine Clr Calc Pharmacy 38.2; Estimated Glomerular Filt Rate 42; Glucose Random 116 mg/dL (60-115); Potassium 3.6 mmol/L (3.3-5.1); Sodium 143 mmol/L (135-145)
--- NOTE | 2024-10-09 14:22 | MHC.CM.PN ---
PER MD ROUNDS PATIENT'S SUPPLEMENTAL OXYGEN REQUIREMENT IN INCREASED. DP HOME TO [facility] WITH [facility]. PT EVAL REC STR DECLINED.
[2024-10-09 15:19] VITALS: BP 114/69; PULSE 99; RESP 18; TEMP 36.4; O2SAT 91
--- NOTE | 2024-10-09 18:35 | PC.NURSE ---
Pt did well ambulating down the hallway and back to the room. about 400 ft. 4L o2, Sat after 92%. HR 113. No CHAO.
[2024-10-09] MEDS: Atorvastatin Calcium 10 MG TABLET PO (19:58)
[2024-10-09] MEDS: Oseltamivir Phosphate 30 MG CAPSULE PO (19:59)
[2024-10-09 23:25] VITALS: BP 129/75; PULSE 75; RESP 18; TEMP 36; O2SAT 92
[2024-10-10 07:42] VITALS: BP 104/72; PULSE 106; RESP 20; TEMP 36.4; O2SAT 95
[2024-10-10] MEDS: Lidocaine 4 % Patch ADH..PATCH 1 PATCH TRANSDERMA (08:26)
[2024-10-10 08:27] VITALS: BP 104/72
[2024-10-10] MEDS: Torsemide 20 MG TABLET 40 MG PO (08:27)
[2024-10-10] MEDS: Empagliflozin 10 MG TABLET PO (08:27)
[2024-10-10] MEDS: Cyclobenzaprine HCl 5 MG TABLET 2.5 MG PO ×3 (08:27→20:44)
[2024-10-10] MEDS: Dabigatran Etexilate Mesylate 150 MG CAPSULE PO (08:28)
[2024-10-10] MEDS: guaiFENesin LA 600 MG TAB.ER.12H PO ×2 (08:28→20:45)
[2024-10-10] MEDS: Acetaminophen 325 MG TABLET 975 MG PO ×3 (08:28→20:45)
[2024-10-10] MEDS: Metoprolol Succinate ER 50 MG TAB.ER.24H PO (08:28)
[2024-10-10] MEDS: 0.9 % Sodium Chloride Flush 3 ML SYRINGE IVFLUSH ×3 (08:29→20:46)
[2024-10-10] MEDS: Cinacalcet HCl 30 MG TABLET PO (08:29)
[2024-10-10 08:36] VITALS: PULSE 109; O2SAT 92
--- NOTE | 2024-10-10 08:43 | PC.NURSE ---
O2 down to 2L via NC Sats 92% will monitor
--- NOTE | 2024-10-10 09:56 | PC.NURSE ---
Pt ambulated with PT on room air O2 sats 92% tolerated well
[2024-10-10] MEDS: methylPREDNISolone Sod Succ 40 MG/ML VIAL IVPUSH ×2 (10:15→20:46)
--- NOTE | 2024-10-10 10:38 | W.MHC.F2F ---
Service Date Service Date: 10/10/24 Encounter Date of encounter: 10/10/24 Reasons for Services Signs and symptoms assessed: fall Flu Reason for physical therapy: home safety and mobility and therapeutic exercises Homebound: Leaving the home is medically contraindicated at this time without the asist of a device and/or another person due th the listed conditions above and below. Reason homebound: unsteady gait / fall risk Certification: Based on the above findings, I certify that this patient is confined to the home and needs intermittent long-term care, physical therapy and/or speech therapy, or continues to need occupational therapy. The patient is under my care, and I have initiated the establishment of the plan of care. The patient will be followed by a physician who will periodically review the plan of care. Time Spent With Patient Time: Total time managing care of this patient today ____ minutes.
--- NOTE | 2024-10-10 10:58 | PC.NURSE ---
O2 sats 87% on room air sitting in chair , denies SOB . placed back on 2L N[place] sats 92%
--- NOTE | 2024-10-10 10:59 | MHC.CM.PN ---
Addendum entered by Sharon Quinones 10/10/24 11:21: PT'S 02 SAT HAS DROPPED, PROVIDER AWARE AND WILL KEEP PT FOR ANOTHER DAY. PT AWARE AND AGREEABLE TO PLAN. Original Note: DP: PT HAS BEEN MEDICALLY CLEARED FOR DC HOME WITH NEW [facility] ([facility] CM SPOKE WITH INTAKE OF [facility] (NOT ON [facility]) CLINICALS SENT VIA FAX ([phone]) AWAITING RESPONSE. FAMILY WILL TRANSPORT.
--- NOTE | 2024-10-10 12:25 | HO.PM.IMPN ---
Subjective Subjective Date of Service: 10/10/24 Interval History: The patient was seen and evalauted weaned off O2 and was in 90s for sometime before starting to become hypoxic and dyspneic again no other events Review of Systems Review of Systems: Yes all other systems are reviewed and are negative Physical Exam Vital Signs: Vital Signs: Last Vital Signs Temp 97.6 F 10/10/24 07:42 Pulse 109 H 10/10/24 08:36 Resp 20 10/10/24 07:42 BP 104/72 10/10/24 08:27 Pulse Ox 92 10/10/24 08:36 O2 Del Method Nasal Cannula wit h Capnography 10/10/24 08:36 O2 Flow Rate 2 10/10/24 08:36 BMI result Body Mass Index 31.6 Const: Other: Constitutional : Awake, interactive, not in distress Neck : Normal inspection, Supple Cardiovascular : RRR, no JVP, no lower extremity edema Respiratory : mildly decreased bilateral air entry, scattered wheezes , On O2 supplement Gastrointestinal: soft, lax, Normal bowel sounds, Non tender Skin : Warm, Dry, forehead bruise Neurological : Alert & oriented x3, No focal deficit Objective Data Active Medications Acetaminophen (Acetaminophen 325 Mg Tablet) 975 mg PO Q6H [facility] Last Admin: 10/10/24 08:28 Dose: 975 mg Documented By: ALMA DELIA Atorvastatin Calcium (Atorvastatin Calcium 10 Mg Tablet) 10 mg PO BEDTIME [facility] Last Admin: 10/09/24 19:58 Dose: 10 mg Documented By: PRECIOUS Calcium Carbonate (Calcium Carbonate 750 Mg Tab.Chew) 750 mg PO Q4H PRN PRN Reason: Heartburn Cinacalcet (Cinacalcet Hcl 30 Mg Tablet) 30 mg PO DAILY [facility] Last Admin: 10/10/24 08:29 Dose: 30 mg Documented By: ALMA DELIA Cyclobenzaprine HCl (Cyclobenzaprine Hcl 5 Mg Tablet) 2.5 mg PO TID [facility] Last Admin: 10/10/24 08:27 Dose: 2.5 mg Documented By: ALMA DELIA Dabigatran (Dabigatran Etexilate Mesylate 150 Mg Capsule) 150 mg PO DAILY [facility] Last Admin: 10/10/24 08:28 Dose: 150 mg Documented By: ALMA DELIA Empagliflozin (Empagliflozin 10 Mg Tablet) 10 mg PO DAILY [facility] Last Admin: 10/10/24 08:27 Dose: 10 mg Documented By: ALMA DELIA Guaifenesin (Guaifenesin La 600 Mg Tab.Er.12h) 600 mg PO BID [facility] Last Admin: 10/10/24 08:28 Dose: 600 mg Documented By: ALMA DELIA Lidocaine (Lidocaine 4 % Patch Adh..Patch) 1 patch TRANSDERMA DAILY [facility]; Protocol Last Admin: 10/10/24 08:26 Dose: 1 patch Documented By: ALMA DELIA Magnesium Hydroxide (Milk Of Magnesia 30 Ml Oral.Susp) 30 ml PO DAILY PRN PRN Reason: Constipation Melatonin (Melatonin 3 Mg Tablet) 6 mg PO BEDTIME PRN PRN Reason: Insomnia Last Admin: 10/06/24 03:34 Dose: 6 mg Documented By: PRECIOUS Methylprednisolone Sodium Succinate (Methylprednisolone Sod Succ 40 Mg/Ml Vial) 40 mg IVPUSH Q12H [facility] Last Admin: 10/10/24 10:15 Dose: 40 mg Documented By: ALMA DELIA Metoprolol Succinate (Metoprolol Succinate Er 50 Mg Tab.Er.24h) 50 mg PO DAILY [facility]; Protocol Last Admin: 10/10/24 08:28 Dose: 50 mg Documented By: ALMA DELIA Ondansetron HCl (Ondansetron Hcl 4 Mg/2 Ml Vial) 4 mg IVPUSH Q8H PRN PRN Reason: Nausea and Vomiting Oseltamivir Phosphate (Oseltamivir Phosphate 30 Mg Capsule) 30 mg PO Q24H [facility] Stop: 10/10/24 19:31 Last Admin: 10/09/24 19:59 Dose: 30 mg Documented By: PRECIOUS Oxycodone HCl (Oxycodone Hcl Immed Release 5 Mg Tablet) 5 mg PO Q4H PRN PRN Reason: Pain, Severe (Pain Scale 7-10) Last Admin: 10/07/24 18:41 Dose: 5 mg Documented By: EDILIA Sodium Chloride (0.9 % Sodium Chloride Flush 3 Ml Syringe) 3 ml IVFLUSH QSHIFT [facility] Last Admin: 10/10/24 08:29 Dose: 3 ml Documented By: ALMA DELIA Torsemide (Torsemide 20 Mg Tablet) 40 mg PO DAILY@0800 [facility]; Protocol Last Admin: 10/10/24 08:27 Dose: 40 mg Documented By: ALMA DELIA Labs 10/06/24 06:13 10/09/24 10:23 Assessment and Plan (1) Hypoxia: Status: Acute (2) Influenza: Status: Acute Plan 84/m with unspecified CHF, AFIB on on dabigatran and status post pacemaker, CKD, CAD status post CABG who was brought to the emergency department for evaluation after a fall and foud to have acute hypoxic resp failure d/t influenza Acute hypoxemic respiratory failure due to Influenza A infection, persistent hypoxic, might need O2 on discharge home continue tamiflu, wean off O2 as tolerated add IV steroids Nebulizer treatment incentive spirometry and chest physiotherapy , OOB CHF, 10/08, difficult to assess EF Echo LVEF difficult to assess, possibly mildly reduced. continue Torsemide Generalized weakness in the setting of above leading to mechanical fall: Physical therapy rec [facility] L1 compression fracture due to fall Tylenol as needed, did not take Oxycodone for 3 days Chronic kidney disease 3 creatinine improved to 1.6, to follow BMP Atrial fibrillation / CAD status post CABG Continue anticoagulation, statin and beta-cecilia. dvt prophylax:on pradaxa. ongoing need to stay acute hypoxemic respiratory failure due to Influenza A infection-needs oxygen tapering ,pt eval, close monitering of repiratory status Quality Stroke Does the patient have a stroke diagnosis?: No VTE Prior VTE?: No VTE Risk Level:: Medical - moderate - high VTE Device Contraindication: N/A - Device Ordered VTE Drug Contraindication: Treatment Not Indicated
[2024-10-10] MEDS: Albuterol/Iprat 2.5/0.5MG 3 ML AMPUL.NEB INHALE ×2 (14:59→19:21)
[2024-10-10 15:38] VITALS: BP 125/68; PULSE 101; RESP 18; TEMP 36.4; O2SAT 91
[2024-10-10 19:22] VITALS: PULSE 90; RESP 16; O2SAT 88
[2024-10-10] MEDS: Oseltamivir Phosphate 30 MG CAPSULE PO (20:45)
[2024-10-10] MEDS: Atorvastatin Calcium 10 MG TABLET PO (20:45)
[2024-10-10 23:27] VITALS: BP 110/57; PULSE 99; RESP 20; TEMP 36.6; O2SAT 92
[2024-10-11 06:09] LABS: Basophils Percent Auto 0.2 % (0-2); Hematocrit 39.4 % (42.0-52.0); Imm Gran Abs Auto 0.08 X10*3/uL (0.00-0.03); Imm Gran Pct Auto 0.8 % (0.0-0.4); Lymphocytes Absolute Auto 0.5 X10*3/uL (1.2-4.9); Lymphocytes Percent Auto 4.6 % (20-40); MANUAL DIFF FLAG SCAN; Mean Corpuscular Hemoglobin 30.6 pg (27.0-33.0); Mean Corpuscular Volume 92.7 fL (80.0-98.0); Mean Platelet Volume 10.4 fL (9.4-12.4); Monocytes Absolute Auto 0.3 X10*3/uL (0.1-1.2); Monocytes Percent Auto 2.9 % (2-11); Neutrophils Absolute Auto 9.7 x10*3/uL (2.0-8.3); Neutrophils Percent Auto 91.5 % (45-73); Platelet Count 240 X10*3/uL (160-400); Red Blood Count 4.25 X10*6/uL (4.60-5.80); Red Cell Distribution Width 14.5 % (11.0-16.0); SCAN SMEAR FLAG 1; White Blood Count 10.6 X10*3/uL (4.8-10.8)
[2024-10-11 06:27] LABS: Anion Gap 17 (12-20); Blood Urea Nitrogen 44 mg/dL (9-16); Calcium 8.9 mg/dL (8.4-10.2); Carbon Dioxide 24 mmol/L (22-29); Chloride 107 mmol/L (96-108); Creatinine Clr Calc Pharmacy 37.4; Estimated Glomerular Filt Rate 41; Glucose Random 164 mg/dL (60-115); Potassium 3.9 mmol/L (3.3-5.1); Sodium 144 mmol/L (135-145)
[2024-10-11 06:38] LABS: SLIDE REVIEW VERIFIED
[2024-10-11 07:34] VITALS: BP 129/72; PULSE 109; RESP 16; TEMP 36.4; O2SAT 91
[2024-10-11] MEDS: Albuterol/Iprat 2.5/0.5MG 3 ML AMPUL.NEB INHALE (07:34)
[2024-10-11 07:36] VITALS: PULSE 99; RESP 20; O2SAT 90
[2024-10-11] MEDS: Lidocaine 4 % Patch ADH..PATCH 1 PATCH TRANSDERMA (07:54)
[2024-10-11 07:55] VITALS: BP 129/72
[2024-10-11] MEDS: Cyclobenzaprine HCl 5 MG TABLET 2.5 MG PO (07:55)
[2024-10-11] MEDS: Torsemide 20 MG TABLET 40 MG PO (07:55)
[2024-10-11] MEDS: Acetaminophen 325 MG TABLET 975 MG PO ×2 (07:55→14:03)
[2024-10-11] MEDS: Cinacalcet HCl 30 MG TABLET PO (07:55)
[2024-10-11 07:56] VITALS: BP 129/72
[2024-10-11] MEDS: Metoprolol Succinate ER 50 MG TAB.ER.24H PO (07:56)
[2024-10-11] MEDS: 0.9 % Sodium Chloride Flush 3 ML SYRINGE IVFLUSH (07:57)
[2024-10-11] MEDS: Empagliflozin 10 MG TABLET PO (07:57)
[2024-10-11] MEDS: guaiFENesin LA 600 MG TAB.ER.12H PO (07:57)
[2024-10-11] MEDS: Dabigatran Etexilate Mesylate 150 MG CAPSULE PO (08:00)
--- NOTE | 2024-10-11 08:05 | P.PNIM_ITS ---
Subjective Subjective Date of Service: 10/11/24 Interval History: He is doing well this morning, Off O2, no distress and wants to go home Review of Systems Review of Systems: Yes all other systems are reviewed and are negative Physical Exam 2 Vital Signs: Vital Signs: Last Vital Signs Temp 97.6 F 10/11/24 07:34 Pulse 99 10/11/24 07:36 Resp 20 10/11/24 07:36 BP 129/72 10/11/24 07:56 Pulse Ox 91 L 10/11/24 07:34 O2 Del Method Room Air 10/11/24 07:34 O2 Flow Rate 2 10/10/24 08:36 BMI result Body Mass Index 31.6 Const: Other: General: AO X 3, no acute distress Resp: CTA bilateral, normal effort, no distress CVS: S1,S2,RRR GI: +BS, NT, no distention Skin: No rash Neuro: motor grossly intact Psych: appropriate affect Objective Data Active Medications Acetaminophen (Acetaminophen 325 Mg Tablet) 975 mg PO Q6H [facility] Last Admin: 10/11/24 07:55 Dose: 975 mg Documented By: ALMA DELIA Albuterol/Ipratropium (Albuterol/Iprat 2.5/0.5mg 3 Ml Ampul.Neb) 3 ml INHALE RQ6H WHILE AWAKE [facility] Last Admin: 10/11/24 07:34 Dose: 3 ml Documented By: JUAN Atorvastatin Calcium (Atorvastatin Calcium 10 Mg Tablet) 10 mg PO BEDTIME [facility] Last Admin: 10/10/24 20:45 Dose: 10 mg Documented By: PRECIOUS Calcium Carbonate (Calcium Carbonate 750 Mg Tab.Chew) 750 mg PO Q4H PRN PRN Reason: Heartburn Cinacalcet (Cinacalcet Hcl 30 Mg Tablet) 30 mg PO DAILY [facility] Last Admin: 10/11/24 07:55 Dose: 30 mg Documented By: ALMA DELIA Cyclobenzaprine HCl (Cyclobenzaprine Hcl 5 Mg Tablet) 2.5 mg PO TID [facility] Last Admin: 10/11/24 07:55 Dose: 2.5 mg Documented By: ALMA DELIA Dabigatran (Dabigatran Etexilate Mesylate 150 Mg Capsule) 150 mg PO DAILY [facility] Last Admin: 10/11/24 08:00 Dose: 150 mg Documented By: ALMA DELIA Empagliflozin (Empagliflozin 10 Mg Tablet) 10 mg PO DAILY [facility] Last Admin: 10/11/24 07:57 Dose: 10 mg Documented By: ALMA DELIA Guaifenesin (Guaifenesin La 600 Mg Tab.Er.12h) 600 mg PO BID [facility] Last Admin: 10/11/24 07:57 Dose: 600 mg Documented By: ALMA DELIA Lidocaine (Lidocaine 4 % Patch Adh..Patch) 1 patch TRANSDERMA DAILY [facility]; Protocol Last Admin: 10/11/24 07:54 Dose: 1 patch Documented By: ALMA DELIA Magnesium Hydroxide (Milk Of Magnesia 30 Ml Oral.Susp) 30 ml PO DAILY PRN PRN Reason: Constipation Melatonin (Melatonin 3 Mg Tablet) 6 mg PO BEDTIME PRN PRN Reason: Insomnia Last Admin: 10/06/24 03:34 Dose: 6 mg Documented By: PRECIOUS Methylprednisolone Sodium Succinate (Methylprednisolone Sod Succ 40 Mg/Ml Vial) 40 mg IVPUSH Q12H [facility] Last Admin: 10/10/24 20:46 Dose: 40 mg Documented By: PRECIOUS Metoprolol Succinate (Metoprolol Succinate Er 50 Mg Tab.Er.24h) 50 mg PO DAILY [facility]; Protocol Last Admin: 10/11/24 07:56 Dose: 50 mg Documented By: ALMA DELIA Ondansetron HCl (Ondansetron Hcl 4 Mg/2 Ml Vial) 4 mg IVPUSH Q8H PRN PRN Reason: Nausea and Vomiting Oxycodone HCl (Oxycodone Hcl Immed Release 5 Mg Tablet) 5 mg PO Q4H PRN PRN Reason: Pain, Severe (Pain Scale 7-10) Last Admin: 10/07/24 18:41 Dose: 5 mg Documented By: EDILIA Sodium Chloride (0.9 % Sodium Chloride Flush 3 Ml Syringe) 3 ml IVFLUSH QSHIFT [facility] Last Admin: 10/11/24 07:57 Dose: 3 ml Documented By: ALMA DELIA Torsemide (Torsemide 20 Mg Tablet) 40 mg PO DAILY@0800 [facility]; Protocol Last Admin: 10/11/24 07:55 Dose: 40 mg Documented By: ALMA DELIA Labs 10/11/24 05:54 10/11/24 05:54 Labs: Laboratory Results - last 24 hr 10/11/24 05:54 MCV 92.7 MCH 30.6 MCHC 33.0 RDW 14.5 Plt Count 240 D MPV 10.4 Immature Gran % (Auto) 0.8 H Neut % (Auto) 91.5 H Lymph % (Auto) 4.6 L [place] % (Auto) 2.9 Eos % (Auto) 0.0 Baso % (Auto) 0.2 Lymph # (Auto) 0.5 L [place] # (Auto) 0.3 Eos # (Auto) 0.0 Baso # (Auto) 0.0 Abs Immat Gran (auto) 0.08 H Absolute Neuts (auto) 9.7 H Absolute Nucleated RBC 0.000 Nucleated RBC % (auto) 0.0 Smear Tech's Comments VERIFIED Anion Gap 17 Estim Creat Clear Calc 37.4 Estimated GFR 41 Random Glucose 164 H Calcium 8.9 Assessment and Plan (1) Hypoxia: Status: Acute (2) Influenza: Status: Acute Plan 84/m with unspecified CHF, AFIB on on dabigatran and status post pacemaker, CKD, CAD status post CABG who was brought to the emergency department for evaluation after a fall and foud to have acute hypoxic resp failure d/t influenza Acute hypoxemic respiratory failure due to Influenza A infection, improved, off O2 Tamiflu for 5 days Neb and steroid for 5 days IS CHF, 10/08, difficult to assess EF Echo LVEF difficult to assess, possibly mildly reduced. continue Torsemide Generalized weakness in the setting of above leading to mechanical fall: Physical therapy rec [facility] L1 compression fracture due to fall Tylenol as needed, did not take Oxycodone for 3 days Chronic kidney disease 3 creatinine improved to 1.6, to follow BMP Atrial fibrillation / CAD status post CABG Continue Pradaxa, statin and beta-cecilia. dvt prophylax:on pradaxa. ongoing need to stay acute hypoxemic respiratory failure due to Influenza A infection-needs oxygen tapering ,pt eval, close monitering of repiratory status Quality Stroke Does the patient have a stroke diagnosis?: No VTE Prior VTE?: No VTE Risk Level:: Medical - moderate - high VTE Device Contraindication: N/A - Device Ordered VTE Drug Contraindication: Treatment Not Indicated
--- NOTE | 2024-10-11 08:10 | PM.DS ---
DS: Providers Provider Date of Service: 10/10/24 <Walter Mortensen MD - Last Filed: 10/10/24 10:38> 10/11/24 <Michael Vidal MD - Last Filed: 10/11/24 11:32> Date of admission: 10/06/24 01:22 <Walter Mortensen MD - Last Filed: 10/10/24 10:38> Date of discharge: 10/10/24 <Walter Mortensen MD - Last Filed: 10/10/24 10:38> 10/11/24 <Michael Vidal MD - Last Filed: 10/11/24 11:32> Primary care physician: Trudy Quevedo MD <Walter Mortensen MD - Last Filed: 10/10/24 10:38> Consults: 10/06/24 03:49 Consult to Wound Care Routine Reason for consultation: Abrasion to forehead from fall at home. Scrapes to both knees. <Walter Mortensen MD - Last Filed: 10/10/24 10:38> DS: Diagnosis Discharge Diagnosis (1) Hypoxia: Status: Acute <Walter Mortensen MD - Last Filed: 10/10/24 10:38> (2) Influenza: Status: Acute <Walter Mortensen MD - Last Filed: 10/10/24 10:38> DS: Summary Hospital Course Hospital Course: Admission note HPI This is a 84-year-old male with pertinent history of congestive heart failure, unspecified EF, atrial fibrillation on dabigatran and status post pacemaker, chronic kidney disease, CAD status post CABG who was brought to the emergency department for evaluation after a fall. Patient resides in [place] and about 1 day prior to presentation he fell out of his bed while trying to get up at around 03:00. States he has been feeling weak for the last 1-2 days. Did not lose consciousness prior to falling. No dizziness or lightheadedness before the fall. No chest pain or palpitations prior to fall. No jerking movement of extremities. Patient was on the ground for about 20 minutes as he could not get up due to weakness. Patient has been having runny nose, nonproductive cough, easy fatigability that started 1-2 days ago. COVID negative at outside independent living facility. Patient did hit his head and is on anticoagulants. No fever, chills, abdominal pain, changes in urinary or bowel habits. In the emergency department, patient was found to be positive for influenza A and satting 78% on room air. He was requiring 3 L supplemental oxygen in the ER. Hospital course: The patient was treated for acute hypoxemic respiratory failure secondary to Influenza A infection. Management included Tamiflu, corticosteroids, and oxygen therapy. He was successfully weaned off supplemental oxygen while maintaining oxygen saturation in the 90s during ambulation. Incentive spirometry and chest physiotherapy were initiated with good clinical benefit. For congestive heart failure (CHF), an echocardiogram performed on 10/08 showed an ejection fraction that was difficult to assess but appeared mildly reduced, with no evidence of wall motion abnormalities. Torsemide was continued for volume management. The patient also experienced generalized weakness in the context of influenza, which contributed to a mechanical fall. He was managed with p.r.n. opioids for pain relief. Physical therapy evaluated the patient and recommended a home PT program upon discharge. Regarding the L1 compression fracture sustained from the fall, pain control was addressed with Tylenol as needed and continued physical therapy as described above. Discharge plan one more dose of Tamiflu at home Continue Prednisone for 3 more days Increase fluid intake and remain well hydrated Physical activity as tolerated Tylenol as needed for pain control <Walter Mortensen MD - Last Filed: 10/10/24 10:38> Time Attestation Discharge Coordination Time (in mins): 41 <Walter Mortensen MD - Last Filed: 10/10/24 10:38> Quality: Safe Use of Opioids Does Pt have an Active Cancer Diagnosis on the Problem List?: No <Waletr Mortensen MD - Last Filed: 10/10/24 10:38> Quality: Stroke Does the patient have a stroke diagnosis?: No <Walter Mortensen MD - Last Filed: 10/10/24 10:38> Physical Exam Vital Signs: Vital Signs: Last Vital Signs Temp 97.6 F 10/10/24 07:42 Pulse 109 H 10/10/24 08:36 Resp 20 10/10/24 07:42 BP 104/72 10/10/24 08:27 Pulse Ox 92 10/10/24 08:36 O2 Del Method Nasal Cannula wit h Capnography 10/10/24 08:36 O2 Flow Rate 2 10/10/24 08:36 BMI result Body Mass Index 31.6 <Walter Mortensen MD - Last Filed: 10/10/24 10:38> Vital Signs: Selected Entries 10/10/24 23:27 10/11/24 07:34 10/11/24 07:36 Pulse Rate 99 Respiratory Rate 20 Blood Pressure Pulse Oximetry 92 91 L 10/11/24 07:56 Pulse Rate Respiratory Rate Blood Pressure 129/72 Pulse Oximetry <Michael Vidal MD - Last Filed: 10/11/24 11:32> Const: Other: Constitutional : Awake, interactive, not in distress Neck : Normal inspection, Supple Cardiovascular : RRR, no JVP, no lower extremity edema Respiratory : good bilateral air entry, no crackles, wheezes or rhonchi Gastrointestinal: soft, lax, Normal bowel sounds, Non tender Skin : Warm, Dry, forehead bruise Neurological : Alert & oriented x3, No focal deficit <Walter Mortensen MD - Last Filed: 10/10/24 10:38> DS: Data Data Completed and Pending Labs on day of discharge: Laboratory Results - last 24 hr 10/09/24 10:23 Sodium 143 Potassium 3.6 Chloride 107 Carbon Dioxide 24 Anion Gap 16 BUN 43 H Creatinine 1.58 H Estim Creat Clear Calc 38.2 Estimated GFR 42 Random Glucose 116 H Calcium 8.6 <Walter Mortensen MD - Last Filed: 10/10/24 10:38> Imaging Chest x-ray: Radiologist's impression: CXR IMPRESSION: 1. Small left pleural effusion. 2. Right basilar opacities, may represent atypical edema or infection. <Walter Mortensen MD - Last Filed: 10/10/24 10:38> Discharge Plan Discharge Anticipated Discharge Date/Time: 10/11/24 08:11 <Walter Mortensen MD - Last Filed: 10/10/24 10:38> Patient Disposition: Home Health Service <Walter Mortensen MD - Last Filed: 10/10/24 10:38> Discharge Diagnosis: Influenza with acute hypoxic respiratory failure <Walter Mortensen MD - Last Filed: 10/10/24 10:38> Influenza with acute hypoxic respiratory failure <Michael Vidal MD - Last Filed: 10/11/24 11:32> Referrals: [facility] [Other] - 3-5 Days (HOME SERVICES FOR USP AND PHYSICAL THERAPY- A NURSE WILL CALL YOU TO SET UP FIRST VISIT.) Trudy Crawley MD [Primary Care Provider] - 1 Week <Walter Mortensen MD - Last Filed: 10/10/24 10:38> Discharge Medications: New lidocaine [Lidocaine Pain Relief] 4 % Adhesive Patch,Medicated 1 patch transdermal DAILY Qty: 20 0RF Protocol: Apply to: Apply to: Affected area oseltamivir 30 mg Capsule 30 mg PO Q24H Qty: 1 0RF prednisone 20 mg tablet 40 mg PO DAILY Qty: 6 0RF Continued torsemide 20 mg tablet 40 mg PO DAILY@0800 Rx Instructions: pt states he takes 40mg in the morning and 20mg in the afternoon metoprolol succinate 50 mg tablet extended release 24 hr 50 mg PO DAILY simvastatin 20 mg tablet 20 mg PO BEDTIME cinacalcet 30 mg tablet 30 mg PO DAILY dabigatran etexilate 150 mg capsule 150 mg PO DAILY Jardiance 10 mg tablet 10 mg PO DAILY eplerenone 25 mg tablet 25 mg PO DAILY torsemide 20 mg tablet 20 mg PO DAILY@1200 <Walter Mortensen MD - Last Filed: 10/10/24 10:38> Discharge Orders: Discharge Order (Routine); Ordered 10/11/24 Ordered By: Michael Vidal <Walter Mortensen MD - Last Filed: 10/10/24 10:38> Diet: Low salt diet <Walter Mortensen MD - Last Filed: 10/10/24 10:38> Low salt diet <Michael Vidal MD - Last Filed: 10/11/24 11:32> Activity on Discharge: As tolerated <Walter Mortensen MD - Last Filed: 10/10/24 10:38> As tolerated <Michael Vidal MD - Last Filed: 10/11/24 11:32> Stand Alone Forms: Patient Portal Discharge page <Walter Mortensen MD - Last Filed: 10/10/24 10:38> Print Language: Latvian <Walter Mortensen MD - Last Filed: 10/10/24 10:38> Care Plan Goals: Improve respiratory function and maintain adequate oxygenation; manage CHF symptoms and fluid status; promote safe mobility and functional recovery through physical therapy; control pain related to L1 compression fracture; prevent further falls and complications during recovery. <Walter Mortensen MD - Last Filed: 10/10/24 10:38> Health Concerns: Acute hypoxemic respiratory failure secondary to Influenza A infection, complicated by underlying congestive heart failure, generalized weakness, and mechanical fall resulting in an L1 compression fracture. <Walter Mortensen MD - Last Filed: 10/10/24 10:38> Plan of Treatment: Continue using incentive spirometry regularly to support lung recovery. Take prescribed medications, including Tamiflu and Prednisone, as directed. Participate in home physical therapy to regain strength and improve mobility. Follow up with your primary care physician and renewable energy division manager as scheduled, call your primary for appointment within a week <Walter Mortensen MD - Last Filed: 10/10/24 10:38> Assessment: as above <Walter Mortensen MD - Last Filed: 10/10/24 10:38>
--- NOTE | 2024-10-11 09:04 | MHC.CM.PN ---
[facility] UPDATED IN WELL ALESHA.
[2024-10-11] MEDS: methylPREDNISolone Sod Succ 40 MG/ML VIAL IVPUSH (09:16)
--- NOTE | 2024-10-11 11:48 | MHC.CM.PN ---
PATIENT TO DC TODAY SON REPORTEDLY WILL TRANSPORT. DC PAPERWORK FAXED TO [facility] @ [phone]. ATT: ARIES SAMANO AWARE OF PLAN.
== END 2024-10-11 14:28 | disposition home health service (06) | DRG 194 ==
LOC: HO.ED 23:11 → HO.EDOVER 10-06 01:26 → HO.S3 10-06 02:33
PROVIDERS: Physician Assistant; Physician Assistant Medical; Student in an Organized Health Care Education/Training Program; Admitting Provider Student in an Organized Health Care Education/Training Program; Emergency Provider Internal Medicine; PCP Family Medicine; Visit Provider Internal Medicine
DX: J10.1 Influenza due to other identified influenza virus with other respiratory manifestations (principal); I13.0 Hypertensive heart and chronic kidney disease with heart failure and stage 1 through stage 4 chronic kidney disease, or unspecified chronic kidney disease; S32.010A Wedge compression fracture of first lumbar vertebra, initial encounter for closed fracture; I50.22 Chronic systolic (congestive) heart failure; W19.XXXA Unspecified fall, initial encounter; I25.10 Atherosclerotic heart disease of native coronary artery without angina pectoris; N18.30 Chronic kidney disease, stage 3 unspecified; I48.91 Unspecified atrial fibrillation; E78.5 Hyperlipidemia, unspecified; Z20.822 Contact with and (suspected) exposure to COVID-19; Z95.0 Presence of cardiac pacemaker; Z66 Do not resuscitate; Z95.1 Presence of aortocoronary bypass graft; Z79.01 Long term (current) use of anticoagulants; Z79.899 Other long term (current) drug therapy
CPT/HCPCS: 0241U; 36415; 70450; 71045; 72070; 72100; 72125; 73080; 80048; 80076; 81001; 82550; 83735; 83880; 84484; 85025; 85027; 85610; 93005; 93306; 94640; 97110; 97116; 97161; 97530; 99285; J0131; J1939; J2919; Q9957

== ENCOUNTER → 2024-10-05 20:24 | Outpatient (BNV) | payer OTHER, SELFPAY | PROVIDERS: Admitting Provider Student in an Organized Health Care Education/Training Program; Emergency Provider Internal Medicine; Visit Provider Internal Medicine Cardiovascular Disease | DX: R94.31 Abnormal electrocardiogram [ECG] [EKG] (principal); W19.XXXA Unspecified fall, initial encounter | CPT/HCPCS: 93010 ==

== ENCOUNTER → 2024-10-05 20:24 | Outpatient (BNV) | payer OTHER, SELFPAY | PROVIDERS: Emergency Provider Internal Medicine; Visit Provider Radiology Diagnostic Radiology | DX: S09.90XA Unspecified injury of head, initial encounter (principal); W19.XXXA Unspecified fall, initial encounter | CPT/HCPCS: 70450; 72125 ==

== ENCOUNTER 2024-10-06 01:22 | Outpatient (BNV) | payer OTHER, SELFPAY | END 2024-10-08 07:00 | PROVIDERS: Admitting Provider Student in an Organized Health Care Education/Training Program; Emergency Provider Internal Medicine; Visit Provider Internal Medicine | DX: I51.7 Cardiomegaly (principal); I34.0 Nonrheumatic mitral (valve) insufficiency; I36.1 Nonrheumatic tricuspid (valve) insufficiency | CPT/HCPCS: 93306 ==

== ENCOUNTER 2024-10-06 01:22 | Outpatient (BNV) | payer OTHER, SELFPAY | END 2024-10-06 19:48 | PROVIDERS: Admitting Provider Student in an Organized Health Care Education/Training Program; Emergency Provider Internal Medicine; Visit Provider Radiology Diagnostic Radiology | DX: J90 Pleural effusion, not elsewhere classified (principal); Z95.0 Presence of cardiac pacemaker | CPT/HCPCS: 71045 ==

== ENCOUNTER → 2024-10-06 01:22 | Outpatient (BNV) | payer OTHER, SELFPAY | PROVIDERS: Admitting Provider Student in an Organized Health Care Education/Training Program; Emergency Provider Internal Medicine; Visit Provider Student in an Organized Health Care Education/Training Program | DX: R09.02 Hypoxemia (principal); J11.1 Influenza due to unidentified influenza virus with other respiratory manifestations | CPT/HCPCS: 99232; G0180 ==